=== PATIENT | male | born 1940 | race Hispanic/Latino ===

== ENCOUNTER 2016-05-13 13:10 | Inpatient (IN) | payer MEDICARE ==
[2016-05-13] MEDS ORDERED: Sodium Chloride 0.9% 1,000 ML IV STA ×3 (13:41→18:22)
[2016-05-13] MEDS ORDERED: Iohexol 240 (50 ml) PO ONE (13:41)
[2016-05-13 13:59] LABS: BASO # 0.2 K/uL (0.0-0.2); BASO % 0.8 % (0.0-2.0); LYMPH # 0.4 K/uL (1.0-4.3); LYMPH % 1.4 % (20.0-40.0); MEAN CELL VOLUME 73.5 fl (80.0-94.0); MEAN CORPUSCULAR HEMOGLOBIN 21.7 pg (27.0-31.0); MEAN CORPUSCULAR HGB CONC 29.6 g/dL (33.0-37.0); MEAN PLATELET VOLUME 7.7 fl (7.2-11.7); MONO # 1.8 K/uL (0.0-0.8); MONO % 6.5 % (0.0-10.0); NEUT # 25.5 K/uL (1.8-7.0); NEUT % 91.3 % (50.0-75.0); PLATELET COUNT 512 K/uL (130-400); RED CELL DISTRIBUTION WIDTH 18.1 % (11.5-14.5); WHITE BLOOD COUNT 27.9 K/uL (4.8-10.8)
[2016-05-13 14:05] LABS: ALB/GLOB RATIO 1.2 (1.0-2.1); BILIRUBIN,TOTAL 1.2 mg/dl (0.2-1.3); CALCIUM 10.8 mg/dL (8.4-10.2); POTASSIUM 3.5 MMOL/L (3.6-5.0); TOTAL PROTEIN 7.3 G/DL (6.3-8.2)
[2016-05-13 14:17] LABS: TROPONIN I 0.022 ng/mL (0.00-0.120)
--- NOTE | 2016-05-13 14:17 | ED PDOC ---
HPI: Abdomen Time Seen by Provider: 05/13/16 13:34 Chief Complaint (Nursing): GI Problem Chief Complaint (Provider): vomiting diarrhea abd pain History Per: Patient, Family History/Exam Limitations: no limitations Onset/Duration Of Symptoms: Hrs (~6) Current Symptoms Are (Timing): Still Present Severity: Moderate Location Of Pain/Discomfort: RUQ Quality Of Discomfort: Sharp Associated Symptoms: Nausea, Vomiting, Diarrhea, Loss Of Appetite Exacerbating Factors: None Alleviating Factors: None Last Bowel Movement: Today Additional Complaint(s): 75yo male presents w family c/o diarrhea which became profuse overnight, progressed to multiple episodes nonbloody vomiting, generalized weakness and lower abdominal pain. Denies fever. Family states they ate out yesterday afternoon, concerned for food born illness but nobody else with similar symptoms. Past Medical History Reviewed: Historical Data, Nursing Documentation, Vital Signs Vital Signs: Last Vital Signs Temp 97.5 F L 05/20/16 08:16 Pulse 101 H 05/20/16 08:39 Resp 18 05/20/16 08:16 BP 156/69 H 05/20/16 08:39 Pulse Ox 95 05/20/16 08:16 - Medical History PMH: Diverticulitis, HTN Other PMH: myasthesia gravis - Surgical History Surgical History: No Surg Hx (no abd surgeries) - Family History Family History: States: Unknown Family Hx - Living Arrangements Living Arrangements: With Family - Social History Current smoker - smoking cessation education provided: No - Home Medications Home Medications: Ambulatory Orders Medication Instructions Recorded Amlodipine/Valsartan/Hcthiazid 10 - 320 mg PO DAILY 05/13/16 [Lumov-Suisl-Ifyo 10-320-25 mg] Aspirin [Aspirin Chewable] 81 mg PO DAILY 05/13/16 Esomeprazole Sodium [Esomeprazole 40 mg PO DAILY 05/13/16 Sodium] Memantine HCl/Donepezil HCl 10 mg PO DAILY 05/13/16 [Namzaric 28 mg-10 mg Capsule] Metoprolol Succinate [Metoprolol 100 mg PO DAILY 05/13/16 Succinate] Prednisone [Prednisone] 10 mg PO DAILY 05/13/16 Pyridostigmine [Mestinon Tab] 60 mg PO QID 05/13/16 Rosuvastatin Calcium [Crestor] 5 mg PO DAILY 05/13/16 - Allergies Allergies/Adverse Reactions: Allergies Allergy/AdvReac Type Severity Reaction Status Date / Time No Known Allergies Allergy Verified 05/13/16 13:12 Review of Systems Constitutional: Positive for: Weakness, Malaise ENT: Negative for: Ear Pain, Nose Pain Cardiovascular: Positive for: Light Headedness. Negative for: Chest Pain, Palpitations Respiratory: Negative for: Cough, Shortness of Breath Gastrointestinal: Positive for: Nausea, Vomiting, Abdominal Pain, Diarrhea. Negative for: Constipation, Melena, Hematochezia Genitourinary Male: Negative for: Dysuria, Frequency Musculoskeletal: Negative for: Neck Pain Skin: Negative for: Rash, Lesions, Jaundice Neurological: Positive for: Dizziness. Negative for: Weakness, Numbness, Headache Psych: Negative for: Anxiety, Depression Physical Exam - Reviewed Nursing Documentation Reviewed: Yes Vital Signs Reviewed: Yes - Physical Exam Appears: Positive for: Non-toxic, Uncomfortable (+profuse nonbloody vomiting) Head Exam: Positive for: ATRAUMATIC, NORMAL INSPECTION, NORMOCEPHALIC Skin: Positive for: Normal Color, Warm, DRY Eye Exam: Positive for: EOMI, Normal appearance, PERRL ENT: Positive for: Normal ENT Inspection Neck: Positive for: Normal, Painless ROM Cardiovascular/Chest: Positive for: Regular Rate, Rhythm Respiratory: Positive for: CNT, Normal Breath Sounds Gastrointestinal/Abdominal: Positive for: Bowel Sounds, Soft, Tenderness (mild lower abd tenderness). Negative for: Guarding, Rebound Back: Positive for: Normal Inspection Extremity: Positive for: Normal ROM Neurologic/Psych: Positive for: Alert, Oriented. Negative for: Motor/Sensory Deficits - Laboratory Results Result Diagrams: 05/18/16 06:00 05/20/16 08:25 - ECG ECG: Positive for: Interpreted By Me ECG Rhythm: Positive for: Normal QRS Interpretation Of ECG: QTc 530 O2 Sat by Pulse Oximetry: 98 Pulse Ox Interpretation: Normal Medical Decision Making Medical Decision Making: Workup for acute abdominal process initiated. IVF bolus, antiemetic ordered with awareness of prolonged QTc. CT abd pelv ordered r/o diverticulitis vs gastroenteritis vs appendicitis vs obstruction vs other -------- labs reviewed reveal marked leukocytosis with evidence of chemical dehydration and hypokalemiua. Disposition - Clinical Impression Clinical Impression: Pancolitis, Dehydration - Patient ED Disposition Is Patient to be Admitted: Transfer of Care Counseled Patient/Family Regarding: Studies Performed - Disposition Disposition: Transfer of Care Disposition Time: 15:00 Condition: GUARDED Patient Signed Over To: Brianda Shea Handoff Comments: pending workup and dispo
[2016-05-13] MEDS ORDERED: Potassium CL 10mEq/100ml 100 ML IVPB ONE (14:19)
[2016-05-13] MEDS ORDERED: Potassium Chloride 10 mEq 100 ML IVPB ONE (14:49)
[2016-05-13] MEDS ORDERED: Atropine-Diphenoxylate 0.025-2.5 mg Tab PO STA (15:55)
--- NOTE | 2016-05-13 15:57 | ED PDOC ---
- Laboratory Results Result Diagrams: 05/13/16 13:45 05/13/16 13:45 - ECG O2 Sat by Pulse Oximetry: 98 (RA) Pulse Ox Interpretation: Normal - CT Scan/US CT A/P w/PO contrast only Other Rad Studies (CT/US): Read By Radiologist, Radiology Report Reviewed Other Rad Interpretation: see [facility] Medical Decision Making Medical Decision Makin:00 Patient endorsed over to me by Zurdo Chau III, DO, pending remainder of ED workup, reevaluation and final disposition. On my evaluation patient reports being less nauseous but is still having copious amounts of diarrhea. 16:41 CT A/P report reviewed: FINDINGS: LOWER THORAX: Unremarkable. LIVER: Unremarkable. No gross lesion or ductal dilatation. GALLBLADDER AND BILE DUCTS: Unremarkable. PANCREAS: Unremarkable. No gross lesion or ductal dilatation. SPLEEN: Unremarkable. ADRENALS: Unremarkable. No mass. KIDNEYS AND URETERS: Two right upper pole renal cysts, 1.8 cm each. Mid left renal cortical cyst, 2.5 cm. No calculus. No hydronephrosis. VASCULATURE: Unremarkable. No aortic aneurysm. BOWEL: There is distention of the entire colon with fluid. There is circumferential mural thickening of the ascending and descending colon with more substantial irregular mural thickening involving rectosigmoid colon. There is pericolonic inflammatory change noted about the ascending and descending colon as well as about the transverse colon, consistent with an infectious or inflammatory colitis . There are multiple dilated loops of small bowel. There is a long segment of small intestine in the left upper quadrant demonstrating circumferential mural thickening, consistent with nonspecific enteritis. There is a small hiatal hernia present. APPENDIX: Not identified. PERITONEUM: Unremarkable. No free fluid. No free air. LYMPH NODES: Unremarkable. No enlarged lymph nodes. BLADDER: Nondistended REPRODUCTIVE: Normal prostate BONES: No acute fracture. OTHER FINDINGS: None. IMPRESSION: Infectious versus inflammatory davies colitis. Irregular more extensive mural thickening involving the rectosigmoid colon, most likely infectious/ inflammatory and less likely neoplastic in origin. Nonspecific enteritis involving proximal small intestine. No evidence bowel obstruction. Additional minor findings as above. . 17:[address] Rodríguez, patient will be admitted as a full inpatient under his service to Telemetry for colitis, dehydration, and anticipated electrolyte abnormality with aggressive dehydration. Administration of Cipro and Flagyl IVPB have also been ordered. Plan has been discussed with both patient and family, who are also in agreement. Condition guarded. Scribe Attestation: Documented by Dana Alvarez, acting as a scribe for Brianda Shea MD. Provider Scribe Attestation: All medical record entries made by the Scribe were at my direction and personally dictated by me. I have reviewed the chart and agree that the record accurately reflects my personal performance of the history, physical exam, medical decision making, and the department course for this patient. I have also personally directed, reviewed, and agree with the discharge instructions and disposition. Disposition Discussed With : Miguel Rodríguez Doctor Will See Patient In The: Hospital Counseled Patient/Family Regarding: Studies Performed, Diagnosis - Clinical Impression Clinical Impression: Pancolitis, Dehydration - POA Present On Arrival: None - Disposition Disposition: Admitted as In-Patient Disposition Time: 17:00 Condition: GUARDED
--- NOTE | 2016-05-13 16:43 | CT ---
PROCEDURE: CT Abdomen and Pelvis without intravenous contrast HISTORY: diarrhea abd pain COMPARISON: None. TECHNIQUE: Without contrast.. Contrast Dose: 0 Radiation dose: Total exam DLP = 867.18 mGy-cm. This CT exam was performed using one or more of the following dose reduction techniques: Automated exposure control, adjustment of the mA and/or kV according to patient size, and/or use of iterative reconstruction technique. FINDINGS: LOWER THORAX: Unremarkable. LIVER: Unremarkable. No gross lesion or ductal dilatation. GALLBLADDER AND BILE DUCTS: Unremarkable. PANCREAS: Unremarkable. No gross lesion or ductal dilatation. SPLEEN: Unremarkable. ADRENALS: Unremarkable. No mass. KIDNEYS AND URETERS: Two right upper pole renal cysts, 1.8 cm each. Mid left renal cortical cyst, 2.5 cm. No calculus. No hydronephrosis. VASCULATURE: Unremarkable. No aortic aneurysm. BOWEL: There is distention of the entire colon with fluid. There is circumferential mural thickening of the ascending and descending colon with more substantial irregular mural thickening involving rectosigmoid colon. There is pericolonic inflammatory change noted about the ascending and descending colon as well as about the transverse colon, consistent with an infectious or inflammatory colitis . There are multiple dilated loops of small bowel. There is a long segment of small intestine in the left upper quadrant demonstrating circumferential mural thickening, consistent with nonspecific enteritis. There is a small hiatal hernia present. APPENDIX: Not identified. PERITONEUM: Unremarkable. No free fluid. No free air. LYMPH NODES: Unremarkable. No enlarged lymph nodes. BLADDER: Nondistended REPRODUCTIVE: Normal prostate BONES: No acute fracture. OTHER FINDINGS: None. IMPRESSION: Infectious versus inflammatory davies colitis. Irregular more extensive mural thickening involving the rectosigmoid colon, most likely infectious/inflammatory and less likely neoplastic in origin. Nonspecific enteritis involving proximal small intestine. No evidence bowel obstruction. Additional minor findings as above. .
[2016-05-13] MEDS ORDERED: Ciprofloxacin 400mg/200ml D5W 200 ML IV STA (16:52)
[2016-05-13] MEDS ORDERED: metroNIDAZOLE 500mg/100ml NS 100 ML IV STA (16:52)
[2016-05-13] MEDS ORDERED: Ciprofloxacin 400mg/200ml D5W 200 ML IVPB ONE (17:02)
[2016-05-13 17:56] LABS: NEUTROPHIL 85 % (42-75); TOTAL CELLS COUNTED 100
[2016-05-13] MEDS ORDERED: metroNIDAZOLE 500mg/100ml NS 100 ML IVPB ONE (18:19)
[2016-05-14] MEDS: Dextrose 5%/Lactated Ringer's 1,000 ML IV SCH ×4 (02:05→17:50)
[2016-05-14 07:47] LABS: BILIRUBIN,TOTAL 1.1 mg/dl (0.2-1.3); CALCIUM 9.2 mg/dL (8.4-10.2); POTASSIUM 5.4 MMOL/L (3.6-5.0); TOTAL PROTEIN 5.2 G/DL (6.3-8.2)
--- NOTE | 2016-05-14 09:04 | CARD ---
APPROVED REPORT EKG Measurement Heart [id number] <Conclusion> Normal sinus rhythm Prolonged QT Abnormal ECG
[2016-05-14 13:29] LABS: HEMATOCRIT 30.1 % (35.0-51.0); MEAN CELL VOLUME 73.5 fl (80.0-94.0); MEAN CORPUSCULAR HEMOGLOBIN 22.1 pg (27.0-31.0); RED CELL DISTRIBUTION WIDTH 17.8 % (11.5-14.5)
--- NOTE | 2016-05-14 13:31 | CP.PCM.CON ---
History of Present Illness - History of Present Illness History of Present Illness: 75 yo male with no IBD history admitted with abdominal pain and diarrhea. Patient is confused and not a good historian. Review of Systems - Review of Systems Systems not reviewed;Unavailable: Altered Mental Status Past Patient History - Past Medical History & Family History Past Medical History?: Yes - Past Social History Smoking Status: Smoker Currrent Status Unknown - CARDIAC Hx Cardiac Disorders: Yes Hx Hypercholesterolemia: Yes Hx Hypertension: Yes - PULMONARY Hx Respiratory Disorders: No - NEUROLOGICAL Hx Neurological Disorder: No - HEENT Hx HEENT Problems: Yes Other/Comment: uses eye glasses - RENAL Hx Chronic Kidney Disease: No - ENDOCRINE/METABOLIC Other/Comment: Hx Myasthenia Gravis - HEMATOLOGICAL/ONCOLOGICAL Hx Blood Disorders: No - INTEGUMENTARY Hx Dermatological Problems: No - MUSCULOSKELETAL/RHEUMATOLOGICAL Hx Musculoskeletal Disorders: No Hx Falls: No - GASTROINTESTINAL Hx Gastrointestinal Disorders: Yes Hx Diverticulitis: Yes - GENITOURINARY/GYNECOLOGICAL Hx Genitourinary Disorders: No - PSYCHIATRIC Hx Psychophysiologic Disorder: No Hx Substance Use: No - ANESTHESIA Hx Anesthesia: No Meds Allergies/Adverse Reactions: Allergies Allergy/AdvReac Type Severity Reaction Status Date / Time No Known Allergies Allergy Verified 05/13/16 13:12 - Medications Medications: Current Medications Dextrose/Lactated Ringer's (Dextrose 5%/Lactated Ringer's) 1,000 mls @ 150 mls/ hr IV .Q6H40M [facility] Last Admin: 05/14/16 09:17 Dose: 150 mls/hr Pantoprazole Sodium (Protonix Inj) 40 mg IVP DAILY [facility] Last Admin: 05/14/16 09:16 Dose: 40 mg Physical Exam - Head Exam Head Exam: ATRAUMATIC - Eye Exam Eye Exam: Normal appearance - ENT Exam ENT Exam: Mucous Membranes Moist - Neck Exam Neck exam: Positive for: Normal Inspection - Respiratory Exam Respiratory Exam: Clear to Auscultation Bilateral - Cardiovascular Exam Cardiovascular Exam: REGULAR RHYTHM - GI/Abdominal Exam GI & Abdominal Exam: Distended, Normal Bowel Sounds, Tenderness Additional comments: moderate generalized tenderness Results - Vital Signs Recent Vital Signs: Last Vital Signs Temp 97.5 F L 05/14/16 12:11 Pulse 82 05/14/16 12:11 Resp 18 05/14/16 12:11 BP 131/68 05/14/16 12:11 Pulse Ox 95 05/14/16 12:11 - Labs Result Diagrams: 05/13/16 13:45 05/14/16 06:50 Labs: Laboratory Results - last 24 hr 05/13/16 05/14/16 19:55 06:50 Sodium 137 Potassium 5.4 H Chloride 105 Carbon Dioxide 18 L Anion Gap 19 BUN 46 H Creatinine 3.3 H Est GFR ( Amer) 22 Est GFR (Non-Af Amer) 18 Random Glucose 106 Calcium 9.2 Total Bilirubin 1.1 AST 74 H D ALT 37 Alkaline Phosphatase 57 Total Protein 5.2 L Albumin 2.6 L D Globulin 2.5 Albumin/Globulin Ratio 1.0 C. difficile Ag & Toxin Negative Assessment & Plan (1) Pancolitis Assessment and Plan: Likely infectious enterocolitis. Patient discussed with Dr. Rodríguez. Uzma Pryor/ Ranjan. May give questran daily for diarrhea. Renal consultation and IV fluids. Status: Acute
--- NOTE | 2016-05-14 14:34 | CP.PCM.CON ---
History of Present Illness - History of Present Illness History of Present Illness: 75yo male presents w family c/o diarrhea which became profuse overnight, progressed to multiple episodes nonbloody vomiting, generalized weakness and lower abdominal pain. denies Hematemasis or Hematochezia Denies fever. Family states they ate out yesterday afternoon, concerned for food borne illness but nobody else with similar symptoms. Denies ingestion of seafood No antibiotic usage No recent visits to hospital no travel hx no ill contacts no prodrome Only risk for c diff is PPI usage - Medical History PMH: Diverticulitis, HTN Other PMH: myasthesia gravis Review of Systems - Constitutional Constitutional: As Per HPI, Anorexia, Chills, Malaise. absent: Fever, Weight Loss - EENT Eyes: absent: As Per HPI, Blind Spots, Blurred Vision, Change in Vision, Decreased Night Vision, Diplopia, Discharge, Dry Eye, Exophthalmos, Floaters, Irritation, Itchy Eyes, Loss of Peripheral Vision, Pain, Photophobia, Requires Corrective Lenses, Sees Flashes, Spots in Vision, Tunnel Vision, Other Visual Disturbances, Loss of Vision, Other Ears: absent: As Per HPI, Decreased Hearing, Ear Discharge, Ear Pain, Tinnitus, Abnormal Hearing, Disequilibrium, Dizziness, Other Nose/Mouth/Throat: absent: As Per HPI, Epistaxis, Nasal Congestion, Nasal Discharge, Nasal Obstruction, Nasal Trauma, Nose Pain, Post Nasal Drip, Sinus Pain, Sinus Pressure, Bleeding Gums, Change in Voice, Dental Pain, Dry Mouth, Dysphagia, Halitosis, Hoarsness, Lip Swelling, Mouth Lesions, Mouth Pain, Odynophagia, Sore Throat, Throat Swelling, Tongue Swelling, Facial Pain, Neck Pain, Neck Mass, Other - Cardiovascular Cardiovascular: absent: As Per HPI, Acrocyanosis, Chest Pain, Chest Pain at Rest , Chest Pain with Activity, Claudication, Diaphoresis, Dyspnea, Dyspnea on Exertion, Edema, Irregular Heart Rhythm, Pain Radiating to Arm/Neck/Jaw, Leg Edema, Leg Ulcers, Lightheadedness, Orthopnea, Palpitations, Paroxysmal Nocturnal Dyspnea, Pedal Edema, Radiating Pain, Rapid Heart Rate, Slow Heart Rate, Syncope, Other - Respiratory Respiratory: absent: As Per HPI, Cough, Dyspnea, Hemoptysis, Dyspnea on Exertion , Wheezing, Snoring, Stridor, Pain on Inspiration, Chest Congestion, Excessive Mucous Production, Change in Mucous Color, Pain with Coughing, Other - Gastrointestinal Gastrointestinal: As Per HPI, Abdominal Pain, Cramping, Diarrhea, Loose Stools, Vomiting. absent: Hematemesis, Odynophagia, Temesmus - Genitourinary Genitourinary: absent: As Per HPI, Change in Urinary Stream, Difficulty Urinating, Dysuria, Flank Pain, Hematuria, Pyuria, Nocturia, Urinary Incontinence, Urinary Frequency, Urinary Hesitance, Urinary Urgency, Voiding Freq/Small Amts, Freq UTI, Hx Renal/Bladder Calculi, Hx /Renal Surgery, Bladder Distension, Other - Musculoskeletal Musculoskeletal: absent: As Per HPI, Abnormal Gait, Arthralgias, Atrophy, Back Pain, Deformity, Joint Swelling, Limited Range of Motion, Loss of Height, Muscle Cramps, Muscle Weakness, Myalgias, Neck Pain, Numbness, Radiating Pain into Limb, Stiffness, Tingling, Other - Integumentary Integumentary: absent: As Per HPI, Acne, Alopecia, Bleeding Lesions, Change in Hair, Change in Nails, Change in Pigmentation, Changing Lesions, Dry Skin, Erythema, Furuncle, Hirsutism, Lesions, New Lesions, Non-Healing Lesions, Photosensitivity, Pruritus, Rash, Skin Pain, Skin Ulcer, Sores, Striae, Swelling , Unusual Bruising, Wounds, Jaundice, Other - Neurological Neurological: As Per HPI - Psychiatric Psychiatric: absent: As Per HPI, Abnormal Sleep Pattern, Anhedonia, Anxiety, Auditory Hallucinations, Behavioral Changes, Change in Appetite, Change in Libido, Confusion, Depression, Difficulty Concentrating, Hallucinations, Homicidal Ideation, Hopelessness, Irritability, Memory Loss, Mood Swings, Panic Attacks, Paranoia, Suicidal Ideation, Visual Hallucinations, Tactile Hallucinations, Other - Endocrine Endocrine: absent: As Per HPI, Change in Body Appearance, Change in Libido, Cold Intolorance, Deepening of Voice, Excessive Sweating, Fatigue, Flushing, Heat Intolorance, Increase in Ring/Shoe/Hat Size, Palpitations, Polydipsia, Polyphagia, Polyuria, Other - Hematologic/Lymphatic Hematologic: absent: As Per HPI, Easy Bleeding, Easy Bruising, Lymphadenopathy, Other Past Patient History - Past Medical History & Family History Past Medical History?: Yes - Past Social History Smoking Status: Smoker Currrent Status Unknown - CARDIAC Hx Cardiac Disorders: Yes Hx Hypercholesterolemia: Yes Hx Hypertension: Yes - PULMONARY Hx Respiratory Disorders: No - NEUROLOGICAL Hx Neurological Disorder: No - HEENT Hx HEENT Problems: Yes Other/Comment: uses eye glasses - RENAL Hx Chronic Kidney Disease: No - ENDOCRINE/METABOLIC Other/Comment: Hx Myasthenia Gravis - HEMATOLOGICAL/ONCOLOGICAL Hx Blood Disorders: No - INTEGUMENTARY Hx Dermatological Problems: No - MUSCULOSKELETAL/RHEUMATOLOGICAL Hx Musculoskeletal Disorders: No Hx Falls: No - GASTROINTESTINAL Hx Gastrointestinal Disorders: Yes Hx Diverticulitis: Yes - GENITOURINARY/GYNECOLOGICAL Hx Genitourinary Disorders: No - PSYCHIATRIC Hx Psychophysiologic Disorder: No Hx Substance Use: No - ANESTHESIA Hx Anesthesia: No Meds Allergies/Adverse Reactions: Allergies Allergy/AdvReac Type Severity Reaction Status Date / Time No Known Allergies Allergy Verified 05/13/16 13:12 - Medications Medications: Current Medications Dextrose/Lactated Ringer's (Dextrose 5%/Lactated Ringer's) 1,000 mls @ 150 mls/ hr IV .Q6H40M [facility] Last Admin: 05/14/16 09:17 Dose: 150 mls/hr Pantoprazole Sodium (Protonix Inj) 40 mg IVP DAILY [facility] Last Admin: 05/14/16 09:16 Dose: 40 mg Physical Exam - Constitutional Appears: Non-toxic, Chronically Ill - Head Exam Head Exam: ATRAUMATIC, NORMAL INSPECTION, NORMOCEPHALIC - Eye Exam Eye Exam: PERRL. absent: Scleral icterus - ENT Exam ENT Exam: Mucous Membranes Dry, Normal External Ear Exam, Normal Oropharynx - Neck Exam Neck exam: Negative for: Lymphadenopathy, Thyromegaly - Respiratory Exam Respiratory Exam: Decreased Breath Sounds, Clear to Auscultation Bilateral - Cardiovascular Exam Cardiovascular Exam: REGULAR RHYTHM, +S1, +S2 - GI/Abdominal Exam GI & Abdominal Exam: Diminished Bowel Sounds, Distended, Firm, Soft. absent: Guarding, Hernia, Organomegaly, Pulsatile Mass, Rebound, Rigid, Tenderness - Rectal Exam Rectal Exam: Deferred - Exam Exam: NORMAL INSPECTION - Extremities Exam Extremities exam: Positive for: pedal pulses present. Negative for: calf tenderness, pedal edema, tenderness - Back Exam Back exam: absent: CVA tenderness (L), CVA tenderness (R), paraspinal tenderness - Neurological Exam Neurological exam: Alert, CN II-XII Intact, Oriented x3, Reflexes Normal - Psychiatric Exam Psychiatric exam: Depressed - Skin Skin Exam: Dry, Intact Results - Vital Signs Recent Vital Signs: Last Vital Signs Temp 97.5 F L 05/14/16 12:11 Pulse 82 05/14/16 12:11 Resp 18 05/14/16 12:11 BP 131/68 05/14/16 12:11 Pulse Ox 95 05/14/16 12:11 - Labs Result Diagrams: 05/14/16 06:50 05/14/16 06:50 Labs: Laboratory Results - last 24 hr 05/13/16 05/14/16 19:55 06:50 WBC 14.0 H RBC 4.09 L Hgb 9.0 L Hct 30.1 L MCV 73.5 L MCH 22.1 L MCHC 30.0 L RDW 17.8 H Plt Count 373 D Sodium 137 Potassium 5.4 H Chloride 105 Carbon Dioxide 18 L Anion Gap 19 BUN 46 H Creatinine 3.3 H Est GFR ( Amer) 22 Est GFR (Non-Af Amer) 18 Random Glucose 106 Calcium 9.2 Total Bilirubin 1.1 AST 74 H D ALT 37 Alkaline Phosphatase 57 Total Protein 5.2 L Albumin 2.6 L D Globulin 2.5 Albumin/Globulin Ratio 1.0 C. difficile Ag & Toxin Negative Assessment & Plan (1) Dehydration Status: Acute (2) Pancolitis Status: Acute (3) Renal insufficiency Status: Acute (4) Hypovolemia dehydration Status: Acute - Assessment and Plan (Free Text) Assessment: will screen for norovirus, entameba, listeria, salmonella cont iv antibiotics
[2016-05-14] MEDS: metroNIDAZOLE 500mg/100ml NS 100 ML IVPB SCH (16:54)
[2016-05-14] MEDS ORDERED: Sodium Chloride 0.9% 500 ML IV ONE ×2 (20:22→22:10)
--- NOTE | 2016-05-14 20:23 | US ---
EXAM: US Bladder Limited CLINICAL HISTORY: 75 years old, male; Signs and symptoms; Bladder; Urine retention TECHNIQUE: Real-time ultrasound of the bladder limited with image documentation. EXAM DATE/TIME: 05/14/2016 5:17 PM COMPARISON: There are no prior studies for comparison. FINDINGS: Multiple transverse and coronal images of the lower pelvis were obtained. The urinary bladder could not be identified. There are multiple bowel loops in the pelvis. There is no free fluid IMPRESSION: Empty bladder
[2016-05-14 20:41] LABS: BILIRUBIN,TOTAL 1.2 mg/dl (0.2-1.3); CALCIUM 8.9 mg/dL (8.4-10.2); PHOSPHOROUS 5.6 mg/dl (2.5-4.5); TOTAL PROTEIN 5.2 G/DL (6.3-8.2)
[2016-05-14 20:46] LABS: POTASSIUM 6.2 MMOL/L (3.6-5.0)
[2016-05-14] MEDS ORDERED: Sod Polystyrene Sulf 15 gm/60 ml Oral Susp PO ONE (22:07)
[2016-05-14] MEDS ORDERED: Dextrose 50% SYRINGE Inj (50 ml) IVP ONE (22:16)
[2016-05-14] MEDS ORDERED: Insulin Regular 100 units/ml SC ONE (22:21)
--- NOTE | 2016-05-14 22:26 | CP.PCM.HP ---
History of Present Illness - History of Present Illness History of Present Illness: This is a 75 y/o male admitted for severe dehydration yesterday through the ER. He apparently started having profused vomiting and diarrhea since the night prior to evaluation at the ER. At the ER, he was noted to be so severely dehydrated clinically and was started on aggressive hydration. He was also started on Iv Cipro and Flagyl. CT scan of the abdomen showed pancolitis. and WBC was more than 27.9 K. family informed that they went out to dinner after which he started with the symptoms., None of the other members of the family had the same symptoms. Hehas a hx of HTN, anemia and gastritis and BPH. Initial labs showed a BUN of 28 and Cr 1.7 to BUN 46 and creatinine 3.3. patient continued to have watery diarrhea in the last 24 hours. Present on Admission - Present on Admission Any Indicators Present on Admission: No History of DVT/PE: No History of Uncontrolled Diabetes: No Urinary Catheter: No Decubitus Ulcer Present: No Review of Systems - Gastrointestinal Gastrointestinal: Dyspepsia Past Patient History - Past Medical History & Family History Past Medical History?: Yes - Past Social History Smoking Status: Smoker Currrent Status Unknown - CARDIAC Hx Cardiac Disorders: Yes Hx Hypercholesterolemia: Yes Hx Hypertension: Yes - PULMONARY Hx Respiratory Disorders: No - NEUROLOGICAL Hx Neurological Disorder: No - HEENT Hx HEENT Problems: Yes Other/Comment: uses eye glasses - RENAL Hx Chronic Kidney Disease: No - ENDOCRINE/METABOLIC Other/Comment: Hx Myasthenia Gravis - HEMATOLOGICAL/ONCOLOGICAL Hx Blood Disorders: No - INTEGUMENTARY Hx Dermatological Problems: No - MUSCULOSKELETAL/RHEUMATOLOGICAL Hx Musculoskeletal Disorders: No Hx Falls: No - GASTROINTESTINAL Hx Gastrointestinal Disorders: Yes Hx Diverticulitis: Yes - GENITOURINARY/GYNECOLOGICAL Hx Genitourinary Disorders: No - PSYCHIATRIC Hx Psychophysiologic Disorder: No Hx Substance Use: No - ANESTHESIA Hx Anesthesia: No Meds Allergies/Adverse Reactions: Allergies Allergy/AdvReac Type Severity Reaction Status Date / Time No Known Allergies Allergy Verified 05/13/16 13:12 Physical Exam - Constitutional Appears: Confused - Neck Exam Neck exam: Positive for: Normal Inspection - Respiratory Exam Respiratory Exam: NORMAL BREATHING PATTERN - GI/Abdominal Exam GI & Abdominal Exam: Hyperactive Bowel Sounds, Tenderness - Skin Skin Exam: Dry Results - Vital Signs Recent Vital Signs: Last Vital Signs Temp 98.3 F 05/14/16 15:47 Pulse 99 H 05/14/16 15:47 Resp 18 05/14/16 15:47 BP 116/65 05/14/16 15:47 Pulse Ox 98 05/14/16 15:47 - Labs Result Diagrams: 05/14/16 06:50 05/14/16 20:20 Labs: Laboratory Results - last 24 hr 05/13/16 05/14/16 05/14/16 19:55 06:50 20:20 WBC 14.0 H RBC 4.09 L Hgb 9.0 L Hct 30.1 L MCV 73.5 L MCH 22.1 L MCHC 30.0 L RDW 17.8 H Plt Count 373 D Sodium 137 138 Potassium 5.4 H 6.2 H* Chloride 105 104 Carbon Dioxide 18 L 19 L Anion Gap 19 21 H BUN 46 H 55 H Creatinine 3.3 H 4.2 H Est GFR ( Amer) 22 17 Est GFR (Non-Af Amer) 18 14 Random Glucose 106 93 Calcium 9.2 8.9 Phosphorus 5.6 H Total Bilirubin 1.1 1.2 AST 74 H D 85 H ALT 37 39 Alkaline Phosphatase 57 65 Total Creatine Kinase 804 H Total Protein 5.2 L 5.2 L Albumin 2.6 L D 2.6 L Globulin 2.5 2.6 Albumin/Globulin Ratio 1.0 1.0 C. difficile Ag & Toxin Negative Assessment & Plan (1) Hypovolemia dehydration Status: Acute (2) Pancolitis Status: Acute (3) Acute renal failure Status: Acute (4) Gastroenteritis and colitis, viral Status: Acute (5) Toxic colitis Status: Acute (6) Toxic dilatation of colon Status: Acute - Assessment and Plan (Free Text) Plan: aggressive hydration Iv antibiotics ID consult GI eval and renal consult close follow up of lytes renal function and cbc.
[2016-05-14] MEDS ORDERED: Calcium Gluconate 4.65 mEq/10 ml Inj IVP ONE (22:49)
[2016-05-14] MEDS ORDERED: Sodium Bicarbonate 7.5% (0.9 MEQ/ML) 50ML INJ IV ONE (23:03)
--- NOTE | 2016-05-15 00:07 | CP.PCM.CON ---
History of Present Illness - History of Present Illness History of Present Illness: Attending: Miguel Keller MD Gastroenteriology: Dr Das Nephrology: Dr Allison Infectious Disease: Dr Rodney Reason for Consult: critical Care management Chief Complaint: Abdominal Pain/Diarrhea/vomiting HPI: The hx is obtained from the Patient and review of the medical chart. He is a 75 years old male with hx of Anemia, Gastritis, diverticulitis and Myasthenia Gravis, came with Diarrhea, vomiting and periumbilical abdominal pain, admitted on 05/13/16 with dx of Pancolitis and dehydration. Aviles catheter was inserted, IV fluids and empirical Antibiotics started. Bladder found empty on Ultrasound with worsening Azotemia and Hyperkalemia. PMH: Diverticulitis; HTN; Anemia; BPH; Gastritis; Myasthenia Gravis PSH: No Surgical History SH: No Smoking of cigarettes; No illegal drug use; No Alcohol; live with family FH: No Kown family history Allergies: NKDA Review of Systems - Constitutional Constitutional: Fatigue, Malaise, Weakness - EENT Eyes: Requires Corrective Lenses. absent: Blurred Vision, Diplopia, Photophobia , Sees Flashes Ears: absent: Decreased Hearing, Ear Discharge, Ear Pain, Tinnitus Nose/Mouth/Throat: absent: Epistaxis, Nasal Congestion, Nasal Discharge, Sinus Pain, Sinus Pressure, Sore Throat - Cardiovascular Cardiovascular: Dyspnea, Orthopnea. absent: Chest Pain, Edema - Respiratory Respiratory: Dyspnea. absent: Cough, Wheezing, Stridor - Gastrointestinal Gastrointestinal: Abdominal Pain, Diarrhea, Nausea, Vomiting - Genitourinary Additional comments: Aviles catheter in place, anuria. - Musculoskeletal Musculoskeletal: absent: Back Pain, Myalgias, Numbness, Stiffness - Integumentary Integumentary: absent: Pruritus, Rash, Skin Ulcer, Sores, Striae, Swelling - Neurological Neurological: Weakness. absent: Confusion, Focal Weakness, Paresthesias, Vertigo - Psychiatric Psychiatric: absent: Anxiety, Confusion, Depression, Memory Loss, Panic Attacks - Endocrine Endocrine: absent: Palpitations, Polydipsia, Polyphagia, Polyuria - Hematologic/Lymphatic Hematologic: absent: Easy Bleeding, Easy Bruising Past Patient History - Past Medical History & Family History Past Medical History?: Yes - Past Social History Smoking Status: Never Smoked Chewing Tobacco Use: No Cigar Use: No Alcohol: None Drugs: Denies Home Situation {Lives}: With Family - CARDIAC Hx Cardiac Disorders: Yes Hx Hypercholesterolemia: Yes Hx Hypertension: Yes - PULMONARY Hx Respiratory Disorders: No - NEUROLOGICAL Hx Neurological Disorder: No - HEENT Hx HEENT Problems: Yes Other/Comment: uses eye glasses - RENAL Hx Chronic Kidney Disease: No - ENDOCRINE/METABOLIC Hx Endocrine Disorders: Yes Other/Comment: Hx Myasthenia Gravis - HEMATOLOGICAL/ONCOLOGICAL Hx Blood Disorders: No - INTEGUMENTARY Hx Dermatological Problems: No - MUSCULOSKELETAL/RHEUMATOLOGICAL Hx Musculoskeletal Disorders: No Hx Falls: No - GASTROINTESTINAL Hx Gastrointestinal Disorders: Yes Hx Diverticulitis: Yes Hx Gastritis: Yes - GENITOURINARY/GYNECOLOGICAL Hx Genitourinary Disorders: No - PSYCHIATRIC Hx Psychophysiologic Disorder: No Hx Substance Use: No - SURGICAL HISTORY Hx Surgeries: No - ANESTHESIA Hx Anesthesia: No Meds Allergies/Adverse Reactions: Allergies Allergy/AdvReac Type Severity Reaction Status Date / Time No Known Allergies Allergy Verified 05/13/16 13:12 - Medications Medications: Current Medications Cholestyramine Resin (Questran) 4 gm PO DAILY [facility] Metronidazole (Flagyl 500mg/100ml Ns) 100 mls @ 100 mls/hr IVPB Q8 [facility] Last Admin: 05/14/16 16:54 Dose: 100 mls/hr Sodium Bicarbonate 150 meq/ (Dextrose) 1,150 mls @ 80 mls/hr IV .[id number] [facility] Pantoprazole Sodium (Protonix Inj) 40 mg IVP DAILY [facility] Last Admin: 05/14/16 09:16 Dose: 40 mg Pneumococcal Polyvalent Vaccine (Pneumovax 23 Vaccine) 0.5 ml IM .ONCE ONE Stop: 05/16/16 21:01 Physical Exam - Constitutional Appears: No Acute Distress - Head Exam Head Exam: ATRAUMATIC, NORMAL INSPECTION, NORMOCEPHALIC - Eye Exam Eye Exam: EOMI, Normal appearance Pupil Exam: NORMAL ACCOMODATION, PERRL - ENT Exam ENT Exam: Normal Exam, Normal External Ear Exam, Normal Oropharynx - Neck Exam Neck exam: Positive for: Full Rom, Normal Inspection. Negative for: Lymphadenopathy, Tenderness - Respiratory Exam Respiratory Exam: Clear to Auscultation Bilateral. absent: Rales, Rhonchi, Wheezes - Cardiovascular Exam Cardiovascular Exam: REGULAR RHYTHM, RRR, +S1, +S2. absent: Gallop, JVD - GI/Abdominal Exam Additional comments: obese, +ve bowel sounds. Soft, tender at the janine umbilical region, no guarding nor rebound tenderness. - Rectal Exam Rectal Exam: Deferred - Extremities Exam Extremities exam: Positive for: full ROM, normal inspection. Negative for: joint swelling, tenderness - Back Exam Back exam: NORMAL INSPECTION. absent: CVA tenderness (L), CVA tenderness (R) - Neurological Exam Neurological exam: Alert, CN II-XII Intact, Oriented x3, Reflexes Normal - Psychiatric Exam Psychiatric exam: Flat Affect - Skin Skin Exam: Dry, Intact, Normal Color, Warm Results - Vital Signs Recent Vital Signs: Last Vital Signs Temp 98.3 F 05/14/16 15:47 Pulse 99 H 05/14/16 15:47 Resp 18 05/14/16 15:47 BP 116/65 05/14/16 15:47 Pulse Ox 98 05/14/16 15:47 - Labs Result Diagrams: 05/14/16 06:50 05/14/16 20:20 Labs: Laboratory Results - last 24 hr 05/13/16 05/14/16 05/14/16 19:55 06:50 20:20 WBC 14.0 H RBC 4.09 L Hgb 9.0 L Hct 30.1 L MCV 73.5 L MCH 22.1 L MCHC 30.0 L RDW 17.8 H Plt Count 373 D Sodium 137 138 Potassium 5.4 H 6.2 H* Chloride 105 104 Carbon Dioxide 18 L 19 L Anion Gap 19 21 H BUN 46 H 55 H Creatinine 3.3 H 4.2 H Est GFR ( Amer) 22 17 Est GFR (Non-Af Amer) 18 14 Random Glucose 106 93 Calcium 9.2 8.9 Phosphorus 5.6 H Total Bilirubin 1.1 1.2 AST 74 H D 85 H ALT 37 39 Alkaline Phosphatase 57 65 Total Creatine Kinase 804 H Total Protein 5.2 L 5.2 L Albumin 2.6 L D 2.6 L Globulin 2.5 2.6 Albumin/Globulin Ratio 1.0 1.0 C. difficile Ag & Toxin Negative - Imaging and Cardiology Bladder US Status: Report reviewed by me Additional comment: Empty bladdder CT scan - abdomen Status: Report reviewed by me Additional comment: CT A/P report reviewed: FINDINGS: LOWER THORAX: Unremarkable. LIVER: Unremarkable. No gross lesion or ductal dilatation. GALLBLADDER AND BILE DUCTS: Unremarkable. PANCREAS: Unremarkable. No gross lesion or ductal dilatation. SPLEEN: Unremarkable. ADRENALS: Unremarkable. No mass. KIDNEYS AND URETERS: Two right upper pole renal cysts, 1.8 cm each. Mid left renal cortical cyst, 2.5 cm. No calculus. No hydronephrosis. VASCULATURE: Unremarkable. No aortic aneurysm. BOWEL: There is distention of the entire colon with fluid. There is circumferential mural thickening of the ascending and descending colon with more substantial irregular mural thickening involving rectosigmoid colon. There is pericolonic inflammatory change noted about the ascending and descending colon as well as about the transverse colon, consistent with an infectious or inflammatory colitis . There are multiple dilated loops of small bowel. There is a long segment of small intestine in the left upper quadrant demonstrating circumferential mural thickening, consistent with nonspecific enteritis. There is a small hiatal hernia present. APPENDIX: Not identified. PERITONEUM: Unremarkable. No free fluid. No free air. LYMPH NODES: Unremarkable. No enlarged lymph nodes. BLADDER: Nondistended REPRODUCTIVE: Normal prostate BONES: No acute fracture. OTHER FINDINGS: None. IMPRESSION: Infectious versus inflammatory davies colitis. Irregular more extensive mural thickening involving the rectosigmoid colon, most likely infectious/ inflammatory and less likely neoplastic in origin. Nonspecific enteritis involving proximal small intestine. No evidence bowel obstruction. Additional minor findings as above. . Chest x-ray Status: Image reviewed by me Additional comment: Right cardiophrenic angle infiltrate Assessment & Plan - Assessment and Plan (Free Text) Assessment: #. Pancolitis #. Dehydration #. Acute renal failure #. Hyperkalemia #. Anemia #. Leukocytosis #. hx of Myaesthenia Gravis Plan: 75 years old male with hx of Anemia, Gastritis, diverticulitis and Myasthenia Gravis, came with Diarrhea, vomiting and periumbilical abdominal pain, admitted on 05/13/16 with dx of Pancolitis and dehydration. Aviles catheter was inserted, IV fluids and empirical Antibiotics started. Bladder found empty on Ultrasound with worsening Azotemia and Hyperkalemia. #. Pancolitis - GI Dr Das on consult -ID Dr Rodney on consult - Stool -ve for C diff Toxins - Antibiotics Cipro/ Fagyl - Zofran - follow CBC/Lactic Acid #. Dehydration due to the Diarrhea andVomiting - IV fluids #. Acute renal failure Pre renal -Dr Allison neurology on consult - IV Fluids NS 1L bolus - IV sodium Bicarbonate Drip 80mls/hr for Metabolic acidosis - Follow renal labs #. Hyperkalemia - Neuro ordered Calcium Gluconate IV; Dextrose 50% 50mls and IV Insuli - follow Electrolytes #. Anemia with low MCV . Probably iron deficiency vs Thalassemia - Iron Panel - follow HB #. Leukocytosisas reaction from the Pancolitis - follow WBC #. Infiltrate at right cardio phrenic angle , most likely atelectasis - follow Serial CXR #. hx of Myaesthenia Gravis - Pyridostigmine as soon as Oral medications is restarted. #. DVT prophylaxis with SCD Code Status: Unknown Full - Date & Time Date: 05/15/16 Time: 00:07
[2016-05-15] MEDS: Sodium Bicarbonate 8.4% 150 MEQ in Dextrose 5% In Water 1,000 ML IV SCH ×2 (00:30→17:05)
[2016-05-15] MEDS ORDERED: Sodium Chloride 0.9% 1,000 ML IV SCH (01:30)
[2016-05-15] MEDS: metroNIDAZOLE 500mg/100ml NS 100 ML IVPB SCH ×3 (01:43→17:05)
[2016-05-15 01:50] LABS: CALCIUM 8.6 mg/dL (8.4-10.2)
[2016-05-15 01:54] LABS: POTASSIUM 5.7 MMOL/L (3.6-5.0)
[2016-05-15] MEDS ORDERED: Sod Polystyrene Sulf 15 gm/60 ml Oral Susp PO ONE (02:00)
[2016-05-15 02:32] LABS: ABG ALLEN TEST YES; ARTERIAL BLOOD GAS PH 7.44 (7.35-7.45); ARTERIAL BLOOD GAS PO2 62 mm/Hg (80-100)
[2016-05-15 02:34] LABS: ARTERIAL BLOOD GAS O2 CAPACITY 10.4 mL/dL (16-24)
[2016-05-15 02:35] LABS: CARBOXYHEMOGLOBIN 1.3 % (0.5-1.5); HHB 4.8 % (0.0-5.0); METHEMOGLOBIN 1.3 % (0.0-3.0)
[2016-05-15 02:37] LABS: ARTERIAL BLOOD HGB O2 SAT 92.7 % (95.0-98.0)
[2016-05-15] MEDS: Dextrose 5%/Lactated Ringer's 1,000 ML IV SCH (04:16)
[2016-05-15 05:16] LABS: CALCIUM 8.3 mg/dL (8.4-10.2); TOTAL PROTEIN 4.9 G/DL (6.3-8.2)
[2016-05-15 05:20] LABS: POTASSIUM 5.7 MMOL/L (3.6-5.0)
[2016-05-15 06:57] LABS: IRON 14 ug/dL (49-181)
[2016-05-15] MEDS: Cholestyramine 4 gm/Pkt UD PO SCH (09:20)
--- NOTE | 2016-05-15 09:51 | CP.CCUPN ---
<Chintan Hammond - Last Filed: 05/15/16 15:40> CCU Subjective - Physician Review Events Since Last Encounter (Free Text): 05/15/16 15:27 Pt. examined at bedside with daughter present in NAD. Pt. still complaining of watery non-bloody bowel movements. On ROS, pt. does reports feeling weak and having generalized abdominal pain which has improved since admission. Pt. denies any lightheadedness, syncope, palpitations, chest pain, shortness of breath, fever, chills, hemoptysis, flank pain, or limb pain. CCU Objective - Vital Signs / Intake & Output Vital Signs (Last 4 hours): Vital Signs Temp Pulse Resp BP Pulse Ox 05/15/16 09:00 108 H 16 96/63 L 98 05/15/16 08:00 97.4 F L 116 H 16 95/60 L 95 05/15/16 06:00 112 H 16 98/54 L 97 Intake and Output (Last 8hrs): Intake & Output 05/14/16 05/15/16 05/15/16 22:59 06:59 14:59 Intake Total 1480 500 Output Total 0 0 Balance 1480 500 Weight 189 lb Intake: IV 1380 400 Intake, Piggyback 100 100 Output: Urine 0 0 Urethral (Aviles) 0 0 - Physical Exam Head: Positive for: Atraumatic, Normocephalic Pupils: Positive for: PERRL Conjunctiva: Positive for: Normal. Negative for: Icteric Mouth: Positive for: Moist Mucous Membranes Neck: Positive for: Trachea Midline, Other (Supple) Respiratory/Chest: Positive for: Clear to Auscultation. Negative for: Accessory Muscle Use Cardiovascular: Positive for: Regular Rate and Rhythm, Normal S1, S2 Abdomen: Positive for: Tenderness (mild generalized tenderness appreciated), Distention (mild distension appreciated). Negative for: Peritoneal Signs, Rebound, Guarding Genitourinary Male: Positive for: Other (Aviles in place draining dark red urine ) Lower Extremity: Positive for: Normal Inspection, NORMAL PULSES Neurological: Positive for: CN II-XII Intact, Speech Normal Skin: Positive for: Warm, Dry Psychiatric: Positive for: Alert, Oriented x 3 - Medications Active Medications: Active Medications Generic Name Dose Route Start Last Admin Trade Name Freq PRN Reason Stop Dose Admin Cholestyramine Resin 4 gm 05/15/16 09:00 05/15/16 09:20 Questran PO Not Given DAILY YOBANI Metronidazole 100 mls @ 100 mls/hr 05/14/16 17:00 05/15/16 09:19 Flagyl 500mg/100ml Ns IVPB 100 mls/hr Q8 YOBANI Administration Sodium Bicarbonate 150 meq/ 1,150 mls @ 80 mls/hr 05/14/16 23:15 05/15/16 00:30 Dextrose IV 80 mls/hr .[id number] YOBANI Administration Pantoprazole Sodium 40 mg 05/14/16 09:00 05/15/16 09:19 Protonix Inj IVP 40 mg DAILY YOBANI Administration Pneumococcal Polyvalent Vaccine 0.5 ml 05/16/16 21:00 Pneumovax 23 Vaccine IM 05/16/16 21:01 .ONCE ONE - Patient Studies Lab Studies: Microbiology Studies 05/13/16 17:30 Blood Culture - Preliminary Blood NO GROWTH AFTER 24 HOURS 05/13/16 17:30 Blood Culture - Preliminary Blood NO GROWTH AFTER 24 HOURS 05/13/16 19:55 Ova and Parasite Concentrate Exam - Final Stool Lab Studies 05/15/16 05/15/16 05/15/16 Range/Units 07:49 06:47 04:20 WBC (4.8-10.8) K/uL RBC (4.40-5.90) Mil/uL Hgb (12.0-18.0) g/dL Hct (35.0-51.0) % MCV (80.0-94.0) fl MCH (27.0-31.0) pg MCHC (33.0-37.0) g/dL RDW (11.5-14.5) % Plt Count (130-400) K/uL Puncture Site pCO2 (35-45) mm/Hg pO2 (80-100) mm/Hg HCO3 (21-28) mmol/L ABG pH (7.35-7.45) ABG Total CO2 (22-28) mmol/L ABG O2 Saturation (95-98) % ABG Base Excess (-2.0-3.0) mmol/L ABG Hemoglobin (11.7-17.4) g/dL ABG Carboxyhemoglobin (0.5-1.5) % POC ABG HHb (Measured) (0.0-5.0) % ABG Methemoglobin (0.0-3.0) % ABG O2 Capacity (16-24) mL/dL Kishor Test A-a O2 Difference mm/Hg Hgb O2 Saturation (95.0-98.0) % FiO2 % Crit Value Called To Blood Gas Notified Time Sodium 140 (132-148) mmol/l Potassium 5.7 H (3.6-5.0) MMOL/L Chloride 108 H (98-107) mmol/L Carbon Dioxide 18 L (22-30) mmol/L Anion Gap 20 (10-20) BUN 65 H (9-20) mg/dl Creatinine 5.0 H 5.1 H (0.8-1.5) mg/dL Est GFR ( Amer) 14 13 Est GFR (Non-Af Amer) 11 11 POC Glucose (mg/dL) (65-110) mg/dL Random Glucose 90 (75-110) mg/dL Lactic Acid 2.1 (0.7-2.1) MMOL/L Calcium 8.3 L (8.4-10.2) mg/dL Phosphorus (2.5-4.5) mg/dl Iron 14 L (49-181) ug/dL TIBC 244 L (250-450) ug/dL % Saturation 6 L (20-55) % Total Bilirubin 1.0 (0.2-1.3) mg/dl AST 62 H D (17-59) U/L ALT 34 (21-72) U/L Alkaline Phosphatase 62 (38-126) U/L Total Creatine Kinase (55-170) U/L Total Protein 4.9 L (6.3-8.2) G/DL Albumin 2.4 L (3.5-5.0) g/dL Globulin 2.5 (2.2-3.9) gm/dL Albumin/Globulin Ratio 1.0 (1.0-2.1) C. difficile Ag & Toxin (NEGATIVE) 05/15/16 05/15/16 05/14/16 Range/Units 02:25 01:30 22:19 WBC (4.8-10.8) K/uL RBC (4.40-5.90) Mil/uL Hgb (12.0-18.0) g/dL Hct (35.0-51.0) % MCV (80.0-94.0) fl MCH (27.0-31.0) pg MCHC (33.0-37.0) g/dL RDW (11.5-14.5) % Plt Count (130-400) K/uL 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 pCO2 25 L (35-45) mm/Hg pO2 62 L (80-100) mm/Hg HCO3 20.0 L (21-28) mmol/L ABG pH 7.44 (7.35-7.45) ABG Total CO2 17.8 L (22-28) mmol/L ABG O2 Saturation 95.1 (95-98) % ABG Base Excess -6.3 L (-2.0-3.0) mmol/L ABG Hemoglobin 7.5 L (11.7-17.4) g/dL ABG Carboxyhemoglobin 1.3 (0.5-1.5) % POC ABG HHb (Measured) 4.8 (0.0-5.0) % ABG Methemoglobin 1.3 (0.0-3.0) % ABG O2 Capacity 10.4 L (16-24) mL/dL Kishor Test Yes A-a O2 Difference 135.0 mm/Hg Hgb O2 Saturation 92.7 L (95.0-98.0) % FiO2 32 % Crit Value Called To elmo jesus rn Blood Gas Notified Time 229 Sodium 138 (132-148) mmol/l Potassium 5.7 H (3.6-5.0) MMOL/L Chloride 107 (98-107) mmol/L Carbon Dioxide 17 L (22-30) mmol/L Anion Gap 20 (10-20) BUN 61 H (9-20) mg/dl Creatinine 5.0 H (0.8-1.5) mg/dL Est GFR ( Amer) 14 Est GFR (Non-Af Amer) 11 POC Glucose (mg/dL) 114 H (65-110) mg/dL Random Glucose 92 (75-110) mg/dL Lactic Acid 3.1 H (0.7-2.1) MMOL/L Calcium 8.6 (8.4-10.2) mg/dL Phosphorus (2.5-4.5) mg/dl Iron (49-181) ug/dL TIBC (250-450) ug/dL % Saturation (20-55) % Total Bilirubin (0.2-1.3) mg/dl AST (17-59) U/L ALT (21-72) U/L Alkaline Phosphatase (38-126) U/L Total Creatine Kinase 526 H (55-170) U/L Total Protein (6.3-8.2) G/DL Albumin (3.5-5.0) g/dL Globulin (2.2-3.9) gm/dL Albumin/Globulin Ratio (1.0-2.1) C. difficile Ag & Toxin (NEGATIVE) 05/14/16 05/14/16 05/13/16 Range/Units 20:20 06:50 19:55 WBC 14.0 H (4.8-10.8) K/uL RBC 4.09 L (4.40-5.90) Mil/uL Hgb 9.0 L (12.0-18.0) g/dL Hct 30.1 L (35.0-51.0) % MCV 73.5 L (80.0-94.0) fl MCH 22.1 L (27.0-31.0) pg MCHC 30.0 L (33.0-37.0) g/dL RDW 17.8 H (11.5-14.5) % Plt Count 373 D (130-400) K/uL Puncture Site pCO2 (35-45) mm/Hg pO2 (80-100) mm/Hg HCO3 (21-28) mmol/L ABG pH (7.35-7.45) ABG Total CO2 (22-28) mmol/L ABG O2 Saturation (95-98) % ABG Base Excess (-2.0-3.0) mmol/L ABG Hemoglobin (11.7-17.4) g/dL ABG Carboxyhemoglobin (0.5-1.5) % POC ABG HHb (Measured) (0.0-5.0) % ABG Methemoglobin (0.0-3.0) % ABG O2 Capacity (16-24) mL/dL Kishor Test A-a O2 Difference mm/Hg Hgb O2 Saturation (95.0-98.0) % FiO2 % Crit Value Called To Blood Gas Notified Time Sodium 138 (132-148) mmol/l Potassium 6.2 H* (3.6-5.0) MMOL/L Chloride 104 (98-107) mmol/L Carbon Dioxide 19 L (22-30) mmol/L Anion Gap 21 H (10-20) BUN 55 H (9-20) mg/dl Creatinine 4.2 H (0.8-1.5) mg/dL Est GFR ( Amer) 17 Est GFR (Non-Af Amer) 14 POC Glucose (mg/dL) (65-110) mg/dL Random Glucose 93 (75-110) mg/dL Lactic Acid (0.7-2.1) MMOL/L Calcium 8.9 (8.4-10.2) mg/dL Phosphorus 5.6 H (2.5-4.5) mg/dl Iron (49-181) ug/dL TIBC (250-450) ug/dL % Saturation (20-55) % Total Bilirubin 1.2 (0.2-1.3) mg/dl AST 85 H (17-59) U/L ALT 39 (21-72) U/L Alkaline Phosphatase 65 (38-126) U/L Total Creatine Kinase 804 H (55-170) U/L Total Protein 5.2 L (6.3-8.2) G/DL Albumin 2.6 L (3.5-5.0) g/dL Globulin 2.6 (2.2-3.9) gm/dL Albumin/Globulin Ratio 1.0 (1.0-2.1) C. difficile Ag & Toxin Negative (NEGATIVE) Laboratory Results - last 24 hr 05/13/16 05/14/16 05/14/16 19:55 06:50 20:20 WBC 14.0 H RBC 4.09 L Hgb 9.0 L Hct 30.1 L MCV 73.5 L MCH 22.1 L MCHC 30.0 L RDW 17.8 H Plt Count 373 D Puncture Site pCO2 pO2 HCO3 ABG pH ABG Total CO2 ABG O2 Saturation ABG Base Excess ABG Hemoglobin ABG Carboxyhemoglobin POC ABG HHb (Measured) ABG Methemoglobin ABG O2 Capacity Kishor Test A-a O2 Difference Hgb O2 Saturation FiO2 Crit Value Called To Blood Gas Notified Time Sodium 138 Potassium 6.2 H* Chloride 104 Carbon Dioxide 19 L Anion Gap 21 H BUN 55 H Creatinine 4.2 H Est GFR ( Amer) 17 Est GFR (Non-Af Amer) 14 POC Glucose (mg/dL) Random Glucose 93 Lactic Acid Calcium 8.9 Phosphorus 5.6 H Iron TIBC % Saturation Total Bilirubin 1.2 AST 85 H ALT 39 Alkaline Phosphatase 65 Total Creatine Kinase 804 H Total Protein 5.2 L Albumin 2.6 L Globulin 2.6 Albumin/Globulin Ratio 1.0 C. difficile Ag & Toxin Negative 05/14/16 05/15/16 05/15/16 22:19 01:30 02:25 WBC RBC Hgb Hct MCV MCH MCHC RDW Plt Count 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 pCO2 25 L pO2 62 L HCO3 20.0 L ABG pH 7.44 ABG Total CO2 17.8 L ABG O2 Saturation 95.1 ABG Base Excess -6.3 L ABG Hemoglobin 7.5 L ABG Carboxyhemoglobin 1.3 POC ABG HHb (Measured) 4.8 ABG Methemoglobin 1.3 ABG O2 Capacity 10.4 L Kishor Test Yes A-a O2 Difference 135.0 Hgb O2 Saturation 92.7 L FiO2 32 Crit Value Called To elmo jesus rn Blood Gas Notified Time 229 Sodium 138 Potassium 5.7 H Chloride 107 Carbon Dioxide 17 L Anion Gap 20 BUN 61 H Creatinine 5.0 H Est GFR ( Amer) 14 Est GFR (Non-Af Amer) 11 POC Glucose (mg/dL) 114 H Random Glucose 92 Lactic Acid 3.1 H Calcium 8.6 Phosphorus Iron TIBC % Saturation Total Bilirubin AST ALT Alkaline Phosphatase Total Creatine Kinase 526 H Total Protein Albumin Globulin Albumin/Globulin Ratio C. difficile Ag & Toxin 05/15/16 05/15/16 05/15/16 04:20 06:47 07:49 WBC RBC Hgb Hct MCV MCH MCHC RDW Plt Count Puncture Site pCO2 pO2 HCO3 ABG pH ABG Total CO2 ABG O2 Saturation ABG Base Excess ABG Hemoglobin ABG Carboxyhemoglobin POC ABG HHb (Measured) ABG Methemoglobin ABG O2 Capacity Kishor Test A-a O2 Difference Hgb O2 Saturation FiO2 Crit Value Called To Blood Gas Notified Time Sodium 140 Potassium 5.7 H Chloride 108 H Carbon Dioxide 18 L Anion Gap 20 BUN 65 H Creatinine 5.1 H 5.0 H Est GFR ( Amer) 13 14 Est GFR (Non-Af Amer) 11 11 POC Glucose (mg/dL) Random Glucose 90 Lactic Acid 2.1 Calcium 8.3 L Phosphorus Iron 14 L TIBC 244 L % Saturation 6 L Total Bilirubin 1.0 AST 62 H D ALT 34 Alkaline Phosphatase 62 Total Creatine Kinase Total Protein 4.9 L Albumin 2.4 L Globulin 2.5 Albumin/Globulin Ratio 1.0 C. difficile Ag & Toxin Fingerstick Blood Sugar Results: 114 Review of Systems - Review of Systems Review of Systems: See HPI Critical Care Progress Note - Nutrition Nutrition: Nutrition Category Date Time Status NPO Diet [DIET] Diets 05/14/16 Breakfast Active Assessment/Plan - Assessment and Plan (Free Text) Assessment: 75 yo. male admitted for Pancolitis transferred to ICU after developing worsening renal failure. 1- Pancolitis- chararaterized by Diarrhea- Infectious vs Ischemic etiolgoy C-diff negative a-GI Dr Das on consult- Input appreciated b-ID Dr Rodney on consult- Input appreciated c-c/w Flagyl & Cipro d-Zofran PRN e-I.V. fluids- D5% + Hco3 @ 150meq f-Repeat labs 2- Acute Kidney Injuy/Acute Renal Failure most likely secondary to pre-renal causes a-Dr Allison neurology on consult- Input appreciated b-Consider Dialysis c-Monitor I/O's 3- Hyperkalemia- trending down 6.2 > 5.7 a-temporary HD catheter b-Dialysis c-Dr. Dodd on board 4- Hx of Myesthenia gravis a-Hold Home meds for now 5- DVT prophylaxis a-SCD for now 6-GI prophylaxis a-40mg I.V. protonix <Gilles Fang V - Last Filed: 05/15/16 17:09> CCU Subjective - Physician Review Events Since Last Encounter (Free Text): 05/15/16 17:07 Patient is see and evaluated at bedside. case is discussed in am rounds. Agree with plan of care as detailed in resident's note CCU Objective - Vital Signs / Intake & Output Vital Signs (Last 4 hours): Vital Signs Temp Pulse Resp BP Pulse Ox 05/15/16 17:00 114 H 16 121/68 100 05/15/16 16:00 98.8 F 111 H 14 110/51 L 100 05/15/16 14:56 98.3 F 105 H 16 139/63 100 05/15/16 14:00 18 142/73 98 05/15/16 13:46 97.8 F 110 H 18 146/76 98 Intake and Output (Last 8hrs): Intake & Output 05/15/16 05/15/16 05/15/16 06:59 14:59 22:59 Intake Total 1480 820 160 Output Total 0 0 Balance 1480 820 160 Weight 189 lb Intake: IV 1380 720 160 Intake, Piggyback 100 100 Output: Urine 0 0 Urethral (Aviles) 0 0 - Medications Active Medications: Active Medications Generic Name Dose Route Start Last Admin Trade Name Freq PRN Reason Stop Dose Admin Cholestyramine Resin 4 gm 05/15/16 09:00 05/15/16 09:20 Questran PO Not Given DAILY YOBANI Metronidazole 100 mls @ 100 mls/hr 05/14/16 17:00 05/15/16 17:05 Flagyl 500mg/100ml Ns IVPB 100 mls/hr Q8 YOBANI Administration Sodium Bicarbonate 150 meq/ 1,150 mls @ 80 mls/hr 05/14/16 23:15 05/15/16 17:05 Dextrose IV 80 mls/hr .[id number] YOBANI Administration Pantoprazole Sodium 40 mg 05/14/16 09:00 05/15/16 09:19 Protonix Inj IVP 40 mg DAILY YOBANI Administration Pneumococcal Polyvalent Vaccine 0.5 ml 05/16/16 21:00 Pneumovax 23 Vaccine IM 05/16/16 21:01 .ONCE ONE - Patient Studies Lab Studies: Microbiology Studies 05/13/16 17:30 Blood Culture - Preliminary Blood NO GROWTH AFTER 24 HOURS 05/13/16 17:30 Blood Culture - Preliminary Blood NO GROWTH AFTER 24 HOURS Lab Studies 05/15/16 05/15/16 05/15/16 Range/Units 13:30 11:07 07:49 PT 11.8 H (9.6-11.2) SECONDS INR 1.13 H (0.92-1.08) APTT 37.5 H (23.3-32.5) SECONDS Puncture Site pCO2 (35-45) mm/Hg pO2 (80-100) mm/Hg HCO3 (21-28) mmol/L ABG pH (7.35-7.45) ABG Total CO2 (22-28) mmol/L ABG O2 Saturation (95-98) % ABG Base Excess (-2.0-3.0) mmol/L ABG Hemoglobin (11.7-17.4) g/dL ABG Carboxyhemoglobin (0.5-1.5) % POC ABG HHb (Measured) (0.0-5.0) % ABG Methemoglobin (0.0-3.0) % ABG O2 Capacity (16-24) mL/dL Kishor Test A-a O2 Difference mm/Hg Hgb O2 Saturation (95.0-98.0) % FiO2 % Crit Value Called To Blood Gas Notified Time Sodium (132-148) mmol/l Potassium (3.6-5.0) MMOL/L Chloride (98-107) mmol/L Carbon Dioxide (22-30) mmol/L Anion Gap (10-20) BUN (9-20) mg/dl Creatinine 5.0 H (0.8-1.5) mg/dL Est GFR ( Amer) 14 Est GFR (Non-Af Amer) 11 POC Glucose (mg/dL) (65-110) mg/dL Random Glucose (75-110) mg/dL Lactic Acid (0.7-2.1) MMOL/L Calcium (8.4-10.2) mg/dL Phosphorus (2.5-4.5) mg/dl Iron (49-181) ug/dL TIBC (250-450) ug/dL % Saturation (20-55) % Total Bilirubin (0.2-1.3) mg/dl AST (17-59) U/L ALT (21-72) U/L Alkaline Phosphatase (38-126) U/L Total Creatine Kinase (55-170) U/L Total Protein (6.3-8.2) G/DL Albumin (3.5-5.0) g/dL Globulin (2.2-3.9) gm/dL Albumin/Globulin Ratio (1.0-2.1) Procalcitonin (0.19-0.49) NG/ML Urine Osmolality 309 (300-1000) mosm/kg Ur Random Sodium 150 meq/L Ur Random Potassium 8.2 mmol/L Hepatitis A IgM Ab (NEGATIVE) Hep Bs Antigen (NEGATIVE) Hep B Core IgM Ab (NEGATIVE) Hepatitis C Antibody (NEGATIVE) HIV 1&2 Antibody Screen (NEGATIVE) 05/15/16 05/15/16 05/15/16 Range/Units 06:47 04:20 02:25 PT (9.6-11.2) SECONDS INR (0.92-1.08) APTT (23.3-32.5) SECONDS 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 pCO2 25 L (35-45) mm/Hg pO2 62 L (80-100) mm/Hg HCO3 20.0 L (21-28) mmol/L ABG pH 7.44 (7.35-7.45) ABG Total CO2 17.8 L (22-28) mmol/L ABG O2 Saturation 95.1 (95-98) % ABG Base Excess -6.3 L (-2.0-3.0) mmol/L ABG Hemoglobin 7.5 L (11.7-17.4) g/dL ABG Carboxyhemoglobin 1.3 (0.5-1.5) % POC ABG HHb (Measured) 4.8 (0.0-5.0) % ABG Methemoglobin 1.3 (0.0-3.0) % ABG O2 Capacity 10.4 L (16-24) mL/dL Kishor Test Yes A-a O2 Difference 135.0 mm/Hg Hgb O2 Saturation 92.7 L (95.0-98.0) % FiO2 32 % Crit Value Called To elmo jseus rn Blood Gas Notified Time 229 Sodium 140 (132-148) mmol/l Potassium 5.7 H (3.6-5.0) MMOL/L Chloride 108 H (98-107) mmol/L Carbon Dioxide 18 L (22-30) mmol/L Anion Gap 20 (10-20) BUN 65 H (9-20) mg/dl Creatinine 5.1 H (0.8-1.5) mg/dL Est GFR ( Amer) 13 Est GFR (Non-Af Amer) 11 POC Glucose (mg/dL) (65-110) mg/dL Random Glucose 90 (75-110) mg/dL Lactic Acid 2.1 (0.7-2.1) MMOL/L Calcium 8.3 L (8.4-10.2) mg/dL Phosphorus (2.5-4.5) mg/dl Iron 14 L (49-181) ug/dL TIBC 244 L (250-450) ug/dL % Saturation 6 L (20-55) % Total Bilirubin 1.0 (0.2-1.3) mg/dl AST 62 H D (17-59) U/L ALT 34 (21-72) U/L Alkaline Phosphatase 62 (38-126) U/L Total Creatine Kinase (55-170) U/L Total Protein 4.9 L (6.3-8.2) G/DL Albumin 2.4 L (3.5-5.0) g/dL Globulin 2.5 (2.2-3.9) gm/dL Albumin/Globulin Ratio 1.0 (1.0-2.1) Procalcitonin (0.19-0.49) NG/ML Urine Osmolality (300-1000) mosm/kg Ur Random Sodium meq/L Ur Random Potassium mmol/L Hepatitis A IgM Ab Negative (NEGATIVE) Hep Bs Antigen Negative (NEGATIVE) Hep B Core IgM Ab Negative (NEGATIVE) Hepatitis C Antibody Negative (NEGATIVE) HIV 1&2 Antibody Screen Negative (NEGATIVE) 05/15/16 05/14/16 05/14/16 Range/Units 01:30 22:19 20:20 PT (9.6-11.2) SECONDS INR (0.92-1.08) APTT (23.3-32.5) SECONDS Puncture Site pCO2 (35-45) mm/Hg pO2 (80-100) mm/Hg HCO3 (21-28) mmol/L ABG pH (7.35-7.45) ABG Total CO2 (22-28) mmol/L ABG O2 Saturation (95-98) % ABG Base Excess (-2.0-3.0) mmol/L ABG Hemoglobin (11.7-17.4) g/dL ABG Carboxyhemoglobin (0.5-1.5) % POC ABG HHb (Measured) (0.0-5.0) % ABG Methemoglobin (0.0-3.0) % ABG O2 Capacity (16-24) mL/dL Kishor Test A-a O2 Difference mm/Hg Hgb O2 Saturation (95.0-98.0) % FiO2 % Crit Value Called To Blood Gas Notified Time Sodium 138 138 (132-148) mmol/l Potassium 5.7 H 6.2 H* (3.6-5.0) MMOL/L Chloride 107 104 (98-107) mmol/L Carbon Dioxide 17 L 19 L (22-30) mmol/L Anion Gap 20 21 H (10-20) BUN 61 H 55 H (9-20) mg/dl Creatinine 5.0 H 4.2 H (0.8-1.5) mg/dL Est GFR ( Amer) 14 17 Est GFR (Non-Af Amer) 11 14 POC Glucose (mg/dL) 114 H (65-110) mg/dL Random Glucose 92 93 (75-110) mg/dL Lactic Acid 3.1 H (0.7-2.1) MMOL/L Calcium 8.6 8.9 (8.4-10.2) mg/dL Phosphorus 5.6 H (2.5-4.5) mg/dl Iron (49-181) ug/dL TIBC (250-450) ug/dL % Saturation (20-55) % Total Bilirubin 1.2 (0.2-1.3) mg/dl AST 85 H (17-59) U/L ALT 39 (21-72) U/L Alkaline Phosphatase 65 (38-126) U/L Total Creatine Kinase 526 H 804 H (55-170) U/L Total Protein 5.2 L (6.3-8.2) G/DL Albumin 2.6 L (3.5-5.0) g/dL Globulin 2.6 (2.2-3.9) gm/dL Albumin/Globulin Ratio 1.0 (1.0-2.1) Procalcitonin (0.19-0.49) NG/ML Urine Osmolality (300-1000) mosm/kg Ur Random Sodium meq/L Ur Random Potassium mmol/L Hepatitis A IgM Ab (NEGATIVE) Hep Bs Antigen (NEGATIVE) Hep B Core IgM Ab (NEGATIVE) Hepatitis C Antibody (NEGATIVE) HIV 1&2 Antibody Screen (NEGATIVE) 05/14/16 Range/Units 16:30 PT (9.6-11.2) SECONDS INR (0.92-1.08) APTT (23.3-32.5) SECONDS Puncture Site pCO2 (35-45) mm/Hg pO2 (80-100) mm/Hg HCO3 (21-28) mmol/L ABG pH (7.35-7.45) ABG Total CO2 (22-28) mmol/L ABG O2 Saturation (95-98) % ABG Base Excess (-2.0-3.0) mmol/L ABG Hemoglobin (11.7-17.4) g/dL ABG Carboxyhemoglobin (0.5-1.5) % POC ABG HHb (Measured) (0.0-5.0) % ABG Methemoglobin (0.0-3.0) % ABG O2 Capacity (16-24) mL/dL Kishor Test A-a O2 Difference mm/Hg Hgb O2 Saturation (95.0-98.0) % FiO2 % Crit Value Called To Blood Gas Notified Time Sodium (132-148) mmol/l Potassium (3.6-5.0) MMOL/L Chloride (98-107) mmol/L Carbon Dioxide (22-30) mmol/L Anion Gap (10-20) BUN (9-20) mg/dl Creatinine (0.8-1.5) mg/dL Est GFR ( Amer) Est GFR (Non-Af Amer) POC Glucose (mg/dL) (65-110) mg/dL Random Glucose (75-110) mg/dL Lactic Acid (0.7-2.1) MMOL/L Calcium (8.4-10.2) mg/dL Phosphorus (2.5-4.5) mg/dl Iron (49-181) ug/dL TIBC (250-450) ug/dL % Saturation (20-55) % Total Bilirubin (0.2-1.3) mg/dl AST (17-59) U/L ALT (21-72) U/L Alkaline Phosphatase (38-126) U/L Total Creatine Kinase (55-170) U/L Total Protein (6.3-8.2) G/DL Albumin (3.5-5.0) g/dL Globulin (2.2-3.9) gm/dL Albumin/Globulin Ratio (1.0-2.1) Procalcitonin 173.06 H (0.19-0.49) NG/ML Urine Osmolality (300-1000) mosm/kg Ur Random Sodium meq/L Ur Random Potassium mmol/L Hepatitis A IgM Ab (NEGATIVE) Hep Bs Antigen (NEGATIVE) Hep B Core IgM Ab (NEGATIVE) Hepatitis C Antibody (NEGATIVE) HIV 1&2 Antibody Screen (NEGATIVE) Laboratory Results - last 24 hr 05/14/16 05/14/16 05/14/16 16:30 20:20 22:19 PT INR APTT Puncture Site pCO2 pO2 HCO3 ABG pH ABG Total CO2 ABG O2 Saturation ABG Base Excess ABG Hemoglobin ABG Carboxyhemoglobin POC ABG HHb (Measured) ABG Methemoglobin ABG O2 Capacity Kishor Test A-a O2 Difference Hgb O2 Saturation FiO2 Crit Value Called To Blood Gas Notified Time Sodium 138 Potassium 6.2 H* Chloride 104 Carbon Dioxide 19 L Anion Gap 21 H BUN 55 H Creatinine 4.2 H Est GFR ( Amer) 17 Est GFR (Non-Af Amer) 14 POC Glucose (mg/dL) 114 H Random Glucose 93 Lactic Acid Calcium 8.9 Phosphorus 5.6 H Iron TIBC % Saturation Total Bilirubin 1.2 AST 85 H ALT 39 Alkaline Phosphatase 65 Total Creatine Kinase 804 H Total Protein 5.2 L Albumin 2.6 L Globulin 2.6 Albumin/Globulin Ratio 1.0 Procalcitonin 173.06 H Urine Osmolality Ur Random Sodium Ur Random Potassium Hepatitis A IgM Ab Hep Bs Antigen Hep B Core IgM Ab Hepatitis C Antibody HIV 1&2 Antibody Screen 05/15/16 05/15/16 05/15/16 01:30 02:25 04:20 PT INR APTT 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1 H 2.1 Calcium 8.6 8.3 L Phosphorus Iron TIBC % Saturation Total Bilirubin 1.0 AST 62 H D ALT 34 Alkaline Phosphatase 62 Total Creatine Kinase 526 H Total Protein 4.9 L Albumin 2.4 L Globulin 2.5 Albumin/Globulin Ratio 1.0 Procalcitonin Urine Osmolality Ur Random Sodium Ur Random Potassium Hepatitis A IgM Ab Negative Hep Bs Antigen Negative Hep B Core IgM Ab Negative Hepatitis C Antibody Negative HIV 1&2 Antibody Screen Negative 05/15/16 05/15/16 05/15/16 06:47 07:49 11:07 PT 11.8 H INR 1.13 H APTT 37.5 H Puncture Site pCO2 pO2 HCO3 ABG pH ABG Total CO2 ABG O2 Saturation ABG Base Excess ABG Hemoglobin ABG Carboxyhemoglobin POC ABG HHb (Measured) ABG Methemoglobin ABG O2 Capacity Kishor Test A-a O2 Difference Hgb O2 Saturation FiO2 Crit Value Called To Blood Gas Notified Time Sodium Potassium Chloride Carbon Dioxide Anion Gap BUN Creatinine 5.0 H Est GFR ( Amer) 14 Est GFR (Non-Af Amer) 11 POC Glucose (mg/dL) Random Glucose Lactic Acid Calcium Phosphorus Iron 14 L TIBC 244 L % Saturation 6 L Total Bilirubin AST ALT Alkaline Phosphatase Total Creatine Kinase Total Protein Albumin Globulin Albumin/Globulin Ratio Procalcitonin Urine Osmolality Ur Random Sodium Ur Random Potassium Hepatitis A IgM Ab Hep Bs Antigen Hep B Core IgM Ab Hepatitis C Antibody HIV 1&2 Antibody Screen 05/15/16 13:30 PT INR APTT Puncture Site pCO2 pO2 HCO3 ABG pH ABG Total CO2 ABG O2 Saturation ABG Base Excess ABG Hemoglobin ABG Carboxyhemoglobin POC ABG HHb (Measured) ABG Methemoglobin ABG O2 Capacity Kishor Test A-a O2 Difference Hgb O2 Saturation FiO2 Crit Value Called To Blood Gas Notified Time Sodium Potassium Chloride Carbon Dioxide Anion Gap BUN Creatinine Est GFR ( Amer) Est GFR (Non-Af Amer) POC Glucose (mg/dL) Random Glucose Lactic Acid Calcium Phosphorus Iron TIBC % Saturation Total Bilirubin AST ALT Alkaline Phosphatase Total Creatine Kinase Total Protein Albumin Globulin Albumin/Globulin Ratio Procalcitonin Urine Osmolality 309 Ur Random Sodium 150 Ur Random Potassium 8.2 Hepatitis A IgM Ab Hep Bs Antigen Hep B Core IgM Ab Hepatitis C Antibody HIV 1&2 Antibody Screen Critical Care Progress Note - Nutrition Nutrition: Nutrition Category Date Time Status NPO Diet [DIET] Diets 05/14/16 Breakfast Active
--- NOTE | 2016-05-15 10:00 | PQF GENQUE ---
Dr. Rodríguez, The attending physician is required to clarify conflicting documentation in the medical record. The following documentation is noted in the medical record : after work up completed: -Diagnosis 1: H and P: Pancolitis Status: Acute (4) Gastroenteritis and colitis, viral Status: Acute (5) Toxic colitis Status: Acute Documented by: attending Location: H and P -Diagnosis 2: Likely infectious enterocolitis. Documented by: Trudi Monahan Food Scientist Location: 05/14 GI consult note Pulse: 87->90->97->97->93->60->92 B/P:134/74->90/40->106/47-.106/47->153/103->92/55->95/62 05/13 Pulse Oxy low: 90 on 05/15 low:88 nasal cannula->Venturi Mask CT Abdomen/Pelvis: Impression: Infectious versus inflammatory davies colitis. Irregular more extensive mural thickening involving the rectosigmoid colon, most likely infectious/ inflammatory and less likely neoplastic in origin. Nonspecific enteritis involving proximal small intestine. No evidence bowel obstruction. Additional minor findings as above. . WBC:27.9->14.0 left shift: Band:9 C-diff Ag& Toxin Negative Clinical labs pending,IVF's, IVAB's This form is a permanent part of the medical record Clarification of your documentation is requested to better reflect the severity of illness and intensity of treatment of your patient. Indicators present [] Specify: [] [] Specify: [] [] Specify: [] [] Specify: [] Location in the medical record that reflects the above clinical findings: [] Treatment Provided: [] PHYSICIAN'S RESPONSE Based on your medical judgment of the clinical indicators outlined above please clarify the following: [] Practitioner response [] If unable to determine, please check the box, sign and date. Present On Admission (POA) Indicator: [] Present at the time of admission [] Not present at the time of admission [] Clinically Undetermined In responding to this query, please exercise your independent professional judgment. The fact that a question is asked does not imply that any particular answer is desired or expected. Thank you for your clarification on this documentation. If you have any questions please call. * Thank you, Rosetta Cam RN BSN ext. #[phone] MTDD
--- NOTE | 2016-05-15 10:52 | CP.PCM.PN ---
Subjective - Date & Time of Evaluation Date of Evaluation: 05/15/16 Time of Evaluation: 09:00 - Subjective Subjective: developed ANURIA/ ARF now in ICU ALL CULTURES NEG THUS FAR GOING TO RECEIVE HD AFEBRILE AWAKE ALERT ON VENTIMASK IN NAD FAMILY AT BEDSIDE C DIFF NEGATIVE Objective - Vital Signs/Intake and Output Vital Signs (last 24 hours): Temp Pulse Resp BP Pulse Ox 97.4 F L 108 H 16 96/63 L 98 05/15/16 08:00 05/15/16 09:00 05/15/16 09:00 05/15/16 09:00 05/15/16 09:00 Intake and Output: 05/15/16 05/15/16 06:59 18:59 Intake Total 1480 500 Output Total 0 0 Balance 1480 500 - Medications Medications: Current Medications Cholestyramine Resin (Questran) 4 gm PO DAILY [facility] Last Admin: 05/15/16 09:20 Dose: Not Given Metronidazole (Flagyl 500mg/100ml Ns) 100 mls @ 100 mls/hr IVPB Q8 [facility] Last Admin: 05/15/16 09:19 Dose: 100 mls/hr Sodium Bicarbonate 150 meq/ (Dextrose) 1,150 mls @ 80 mls/hr IV .[id number] [facility] Last Admin: 05/15/16 00:30 Dose: 80 mls/hr Pantoprazole Sodium (Protonix Inj) 40 mg IVP DAILY [facility] Last Admin: 05/15/16 09:19 Dose: 40 mg Pneumococcal Polyvalent Vaccine (Pneumovax 23 Vaccine) 0.5 ml IM .ONCE ONE Stop: 05/16/16 21:01 - Labs Labs: 05/14/16 06:50 05/15/16 07:49 - Constitutional Appears: Non-toxic - Head Exam Head Exam: ATRAUMATIC, NORMOCEPHALIC - Eye Exam Eye Exam: PERRL. absent: Scleral icterus - ENT Exam ENT Exam: Mucous Membranes Dry - Neck Exam Neck Exam: absent: Lymphadenopathy - Respiratory Exam Respiratory Exam: Decreased Breath Sounds, Clear to Ausculation Bilateral - Cardiovascular Exam Cardiovascular Exam: REGULAR RHYTHM, +S1, +S2 - GI/Abdominal Exam GI & Abdominal Exam: Distended, Soft, Diminished Bowel Sounds. absent: Tenderness, Organomegaly - Rectal Exam Rectal Exam: Deferred - Exam Exam: NORMAL INSPECTION - Extremities Exam Extremities Exam: absent: Calf Tenderness, Pedal Edema - Back Exam Back Exam: absent: CVA tenderness (L), CVA tenderness (R) - Neurological Exam Neurological Exam: Alert, Awake, Oriented x3 - Psychiatric Exam Psychiatric exam: Depressed - Skin Skin Exam: Dry, Intact Assessment and Plan (1) Dehydration Status: Acute (2) Pancolitis Status: Acute (3) Renal insufficiency Status: Acute (4) Hypovolemia dehydration Status: Acute - Assessment and Plan (Free Text) Assessment: PANCOLITIS- ETIOLOGY UNCLEAR ATN ETIOLOGY UNCLEAR - DID NOT RECEIVE CONTRAST, NO BETA LACTAMS FOR HD GI ON BOARD PROGNOSIS GUARDED
--- NOTE | 2016-05-15 10:57 | CP.PCM.CON ---
History of Present Illness - History of Present Illness History of Present Illness: pt seen and examined, full consult is dictated #[id number] 1. OLY, most likely sec to atn sec to sepsis 2. hyperkalemia 3. met. acidosis 4. lactic acidosis 5. Diarrhea, r/o Gastroenteritis viral vs bacterial continue ivf d5w with [id number] 150 meq/lit at 80 ml/hr d/w pt's family, daughter, pt's , regarding hd agreed for hd and signed consent for hd by pt's check pt/ptt stat HD after sarah catheter placement Past Patient History - Past Medical History & Family History Past Medical History?: Yes - Past Social History Smoking Status: Never Smoked Chewing Tobacco Use: No Cigar Use: No Alcohol: None Drugs: Denies Home Situation {Lives}: With Family - CARDIAC Hx Cardiac Disorders: Yes Hx Hypercholesterolemia: Yes Hx Hypertension: Yes - PULMONARY Hx Respiratory Disorders: No - NEUROLOGICAL Hx Neurological Disorder: No - HEENT Hx HEENT Problems: Yes Other/Comment: uses eye glasses - RENAL Hx Chronic Kidney Disease: No - ENDOCRINE/METABOLIC Hx Endocrine Disorders: Yes Other/Comment: Hx Myasthenia Gravis - HEMATOLOGICAL/ONCOLOGICAL Hx Blood Disorders: No - INTEGUMENTARY Hx Dermatological Problems: No - MUSCULOSKELETAL/RHEUMATOLOGICAL Hx Musculoskeletal Disorders: No Hx Falls: No - GASTROINTESTINAL Hx Gastrointestinal Disorders: Yes Hx Diverticulitis: Yes Hx Gastritis: Yes - GENITOURINARY/GYNECOLOGICAL Hx Genitourinary Disorders: No - PSYCHIATRIC Hx Psychophysiologic Disorder: No Hx Substance Use: No - SURGICAL HISTORY Hx Surgeries: No - ANESTHESIA Hx Anesthesia: No Meds Allergies/Adverse Reactions: Allergies Allergy/AdvReac Type Severity Reaction Status Date / Time No Known Allergies Allergy Verified 05/13/16 13:12 - Medications Medications: Current Medications Cholestyramine Resin (Questran) 4 gm PO DAILY [facility] Last Admin: 05/15/16 09:20 Dose: Not Given Metronidazole (Flagyl 500mg/100ml Ns) 100 mls @ 100 mls/hr IVPB Q8 [facility] Last Admin: 05/15/16 09:19 Dose: 100 mls/hr Sodium Bicarbonate 150 meq/ (Dextrose) 1,150 mls @ 80 mls/hr IV .[id number] [facility] Last Admin: 05/15/16 00:30 Dose: 80 mls/hr Pantoprazole Sodium (Protonix Inj) 40 mg IVP DAILY [facility] Last Admin: 05/15/16 09:19 Dose: 40 mg Pneumococcal Polyvalent Vaccine (Pneumovax 23 Vaccine) 0.5 ml IM .ONCE ONE Stop: 05/16/16 21:01 Results - Vital Signs Recent Vital Signs: Last Vital Signs Temp 97.4 F L 05/15/16 08:00 Pulse 108 H 05/15/16 09:00 Resp 16 05/15/16 09:00 BP 96/63 L 05/15/16 09:00 Pulse Ox 98 05/15/16 09:00 - Labs Result Diagrams: 05/14/16 06:50 05/15/16 07:49 Labs: Laboratory Results - last 24 hr 05/13/16 05/14/16 05/14/16 19:55 06:50 20:20 WBC 14.0 H RBC 4.09 L Hgb 9.0 L Hct 30.1 L MCV 73.5 L MCH 22.1 L MCHC 30.0 L RDW 17.8 H Plt Count 373 D Puncture Site pCO2 pO2 HCO3 ABG pH ABG Total CO2 ABG O2 Saturation ABG Base Excess ABG Hemoglobin ABG Carboxyhemoglobin POC ABG HHb (Measured) ABG Methemoglobin ABG O2 Capacity Kishor Test A-a O2 Difference Hgb O2 Saturation FiO2 Crit Value Called To Blood Gas Notified Time Sodium 138 Potassium 6.2 H* Chloride 104 Carbon Dioxide 19 L Anion Gap 21 H BUN 55 H Creatinine 4.2 H Est GFR ( Amer) 17 Est GFR (Non-Af Amer) 14 POC Glucose (mg/dL) Random Glucose 93 Lactic Acid Calcium 8.9 Phosphorus 5.6 H Iron TIBC % Saturation Total Bilirubin 1.2 AST 85 H ALT 39 Alkaline Phosphatase 65 Total Creatine Kinase 804 H Total Protein 5.2 L Albumin 2.6 L Globulin 2.6 Albumin/Globulin Ratio 1.0 C. difficile Ag & Toxin Negative 05/14/16 05/15/16 05/15/16 22:19 01:30 02:25 WBC RBC Hgb Hct MCV MCH MCHC RDW Plt Count Puncture Site [employer] pCO2 25 L pO2 62 L HCO3 20.0 L ABG pH 7.44 ABG Total CO2 17.8 L ABG O2 Saturation 95.1 ABG Base Excess -6.3 L ABG Hemoglobin 7.5 L ABG Carboxyhemoglobin 1.3 POC ABG HHb (Measured) 4.8 ABG Methemoglobin 1.3 ABG O2 Capacity 10.4 L Kishor Test Yes A-a O2 Difference 135.0 Hgb O2 Saturation 92.7 L FiO2 32 Crit Value Called To elmo jesus rn Blood Gas Notified Time 229 Sodium 138 Potassium 5.7 H Chloride 107 Carbon Dioxide 17 L Anion Gap 20 BUN 61 H Creatinine 5.0 H Est GFR ( Amer) 14 Est GFR (Non-Af Amer) 11 POC Glucose (mg/dL) 114 H Random Glucose 92 Lactic Acid 3.1 H Calcium 8.6 Phosphorus Iron TIBC % Saturation Total Bilirubin AST ALT Alkaline Phosphatase Total Creatine Kinase 526 H Total Protein Albumin Globulin Albumin/Globulin Ratio C. difficile Ag & Toxin 05/15/16 05/15/16 05/15/16 04:20 06:47 07:49 WBC RBC Hgb Hct MCV MCH MCHC RDW Plt Count Puncture Site pCO2 pO2 HCO3 ABG pH ABG Total CO2 ABG O2 Saturation ABG Base Excess ABG Hemoglobin ABG Carboxyhemoglobin POC ABG HHb (Measured) ABG Methemoglobin ABG O2 Capacity Kishor Test A-a O2 Difference Hgb O2 Saturation FiO2 Crit Value Called To Blood Gas Notified Time Sodium 140 Potassium 5.7 H Chloride 108 H Carbon Dioxide 18 L Anion Gap 20 BUN 65 H Creatinine 5.1 H 5.0 H Est GFR ( Amer) 13 14 Est GFR (Non-Af Amer) 11 11 POC Glucose (mg/dL) Random Glucose 90 Lactic Acid 2.1 Calcium 8.3 L Phosphorus Iron 14 L TIBC 244 L % Saturation 6 L Total Bilirubin 1.0 AST 62 H D ALT 34 Alkaline Phosphatase 62 Total Creatine Kinase Total Protein 4.9 L Albumin 2.4 L Globulin 2.5 Albumin/Globulin Ratio 1.0 C. difficile Ag & Toxin
--- NOTE | 2016-05-15 11:13 | RAD ---
HISTORY: SOB/Hypoxemia COMPARISON: Comparison chest 05/14/2016. Comparison also made with CT scan abdomen pelvis 05/13/2016 which imaged both lung bases. FINDINGS: LUNGS: Poor inspiration with low lung volumes, mild crowded bronchovascular markings and mild bibasilar atelectasis. Developing infiltrates could be excluded with followup radiographs. Questionable small bilateral effusions. PLEURA: No pneumothorax apparent. CARDIOVASCULAR: Cardiomegaly. Aorta is slightly ectatic and uncoiled. OSSEOUS STRUCTURES: No significant abnormalities. VISUALIZED UPPER ABDOMEN: Normal. OTHER FINDINGS: None. IMPRESSION: Poor inspiration with low lung volumes, mild crowded bronchovascular markings and mild bibasilar atelectasis. Developing infiltrates could be excluded with followup radiographs. Questionable small bilateral effusions.
[2016-05-15 11:28] LABS: PARTIAL THROMBOPLASTIN TIME 37.5 SECONDS (23.3-32.5)
--- NOTE | 2016-05-15 12:05 | RAD ---
HISTORY: fluid overload COMPARISON: No prior study available comparison however correlation made with CT scan abdomen pelvis 05/13/2016 which imaged both lung bases. FINDINGS: LUNGS: Poor inspiration with low lung volumes, mild crowded bronchovascular markings and mild bibasilar atelectasis left greater than right. Small left-sided effusion cannot be excluded. PLEURA: No pneumothorax apparent. CARDIOVASCULAR: Heart remains enlarged. OSSEOUS STRUCTURES: No significant abnormalities. VISUALIZED UPPER ABDOMEN: Normal. OTHER FINDINGS: None. IMPRESSION: Poor inspiration with low lung volumes, mild crowded bronchovascular markings and mild bibasilar atelectasis left greater than right. Small left-sided effusion cannot be excluded. No evidence of cristofer pulmonary edema
[2016-05-15] MEDS ORDERED: Lidocaine 1% Inj (20ml) ONE (13:41)
--- NOTE | 2016-05-15 13:45 | PCM.SURG1 ---
Surgeon's Initial Post Op Note - Surgeon's Notes Surgeon: Panda Pérez MD Photo Printer: NONE Type of Anesthesia: Local Pre-Operative Diagnosis: Renal failure Operative Findings: Patent right IJV Post-Operative Diagnosis: Renal failure Operation Performed: Right IJV non tunneled HD catheter placement. Specimen/Specimens Removed: NONE Estimated Blood Loss: EBL {In ML}: 4 Blood Products Given: N/A Drains Used: No Drains Post-Op Condition: Poor Date of Surgery/Procedure: 05/15/16 Time of Surgery/Procedure: 14:00
--- NOTE | 2016-05-15 17:18 | CP.PCM.PN ---
Subjective - Date & Time of Evaluation Date of Evaluation: 05/15/16 Time of Evaluation: 17:16 - Subjective Subjective: Patient currently with acute renal failure and seen by nephrology. Abdominal pain much improved. Objective - Vital Signs/Intake and Output Vital Signs (last 24 hours): Temp Pulse Resp BP Pulse Ox 98.8 F 114 H 16 121/68 100 05/15/16 16:00 05/15/16 17:00 05/15/16 17:00 05/15/16 17:00 05/15/16 17:00 Intake and Output: 05/15/16 05/15/16 06:59 18:59 Intake Total 1480 980 Output Total 0 0 Balance 1480 980 - Medications Medications: Current Medications Cholestyramine Resin (Questran) 4 gm PO DAILY [facility] Last Admin: 05/15/16 09:20 Dose: Not Given Metronidazole (Flagyl 500mg/100ml Ns) 100 mls @ 100 mls/hr IVPB Q8 [facility] Last Admin: 05/15/16 17:05 Dose: 100 mls/hr Sodium Bicarbonate 150 meq/ (Dextrose) 1,150 mls @ 80 mls/hr IV .[id number] [facility] Last Admin: 05/15/16 17:05 Dose: 80 mls/hr Pantoprazole Sodium (Protonix Inj) 40 mg IVP DAILY [facility] Last Admin: 05/15/16 09:19 Dose: 40 mg Pneumococcal Polyvalent Vaccine (Pneumovax 23 Vaccine) 0.5 ml IM .ONCE ONE Stop: 05/16/16 21:01 - Labs Labs: 05/14/16 06:50 05/15/16 07:49 PT 11.8 SECONDS (9.6-11.2) H 05/15/16 11:07 INR 1.13 (0.92-1.08) H 05/15/16 11:07 APTT 37.5 SECONDS (23.3-32.5) H 05/15/16 11:07 - Head Exam Head Exam: ATRAUMATIC - Eye Exam Eye Exam: Normal appearance Pupil Exam: PERRL - Neck Exam Neck Exam: Full ROM - Cardiovascular Exam Cardiovascular Exam: REGULAR RHYTHM, +S1, +S2 - GI/Abdominal Exam GI & Abdominal Exam: Soft. absent: Tenderness Assessment and Plan (1) Pancolitis Assessment & Plan: Colitis clinically better. Continue abx Status: Acute
[2016-05-16] MEDS: metroNIDAZOLE 500mg/100ml NS 100 ML IVPB SCH ×3 (01:30→17:28)
[2016-05-16 05:16] LABS: HEMATOCRIT 24.5 % (35.0-51.0); MEAN CELL VOLUME 69.9 fl (80.0-94.0); MEAN CORPUSCULAR HEMOGLOBIN 22.6 pg (27.0-31.0); MEAN CORPUSCULAR HGB CONC 32.3 g/dL (33.0-37.0); RED CELL DISTRIBUTION WIDTH 18.5 % (11.5-14.5); WHITE BLOOD COUNT 9.9 K/uL (4.8-10.8)
[2016-05-16 05:56] LABS: ALB/GLOB RATIO 0.9 (1.0-2.1); BILIRUBIN,TOTAL 0.7 mg/dl (0.2-1.3); CALCIUM 7.9 mg/dL (8.4-10.2); POTASSIUM 4.9 MMOL/L (3.6-5.0); TOTAL PROTEIN 4.8 G/DL (6.3-8.2)
[2016-05-16] MEDS: Sodium Bicarbonate 8.4% 150 MEQ in Dextrose 5% In Water 1,000 ML IV SCH (06:03)
--- NOTE | 2016-05-16 06:24 | CON ---
DATE: 05/14/2016 The patient is located in ICU bed [address]. Requested by Dr. Miguel Rodríguez. REASON FOR RENAL CONSULTATION: Acute renal failure, hyperkalemia, metabolic acidosis, and enuresis. The patient is a 75-year-old elderly male with a history of hypertension and diverticulosis,Mysthesinia gravis,, who was admitted through the Emergency Room with a chief complaint of severe diarrhea started after he had dinner on Sunday night, and then around 1 a.m. he started having abdominal cramps and severe diarrhea, and the patient was brought for further evaluation. After further evaluation the patient was found to have acute renal failure on admission with a creatinine of 1.7, and also feeling weak and tired, and wobbly , unable to ambulate. Now renal consult requested for worsening renal function. The patient claims he had multiple episodes of nonbloody diarrhea. Denies any fever, cough. Denies any chest pain, palpitation. Denies any swelling of the legs. The patient complains of slight dizziness, and no loss of consciousness. PAST MEDICAL HISTORY: Significant for diverticulosis and hypertension, and also mysthesinia gravis PAST SURGICAL HISTORY: Denies. ALLERGIES: No known drug allergies. SOCIAL HISTORY: No smoking. Occasional alcohol social. No drug abuse. PERSONAL HISTORY: He is and he has 3 children. FAMILY HISTORY: Not significant. REVIEW OF THE SYSTEMS: Significant for profuse diarrhea and abdominal pain and cramps, and weakness, and dizziness, and wobbly. All other review of systems reviewed and are negative. HOME MEDICATIONS: Include amlodipine, valsartan, and hydrochlorothiazide 10/320 /25 mg daily, omeprazole 40 mg daily, aspirin 81 mg daily, and Namzaric ( memantine and donepezil) daily, and metoprolol 100 mg daily, prednisone 10 mg p.o. daily, and Mestinon 60 mg p.o. q.i.d., Crestor 5 mg p.o. daily. HIS CURRENT MEDICATIONS IN THE HOSPITAL INCLUDE FOLLOWS: Metronidazole 500 mg q. 8 hours, and Protonix, and IV fluids D5W with 150 mg sodium bicarbonate at 80 mL per hour. HIS VITAL SIGNS AND PHYSICAL EXAMINATION ARE FOLLOWS: Blood pressure this morning 96/63, pulse 108, respirations 16, and temperature 97.2, saturation 98% . Height 6 feet 1 inch, and weight is 189 pounds. BMI 24.9. HENT AND PHYSICAL EXAMINATION: The patient is a 75-year-old elderly male, well built, well nourished, not in acute distress. HENT: Pupils normal, reactive to light and accommodation. Conjunctivae pink, sclerae anicteric. Tongue is moist. Trachea is midline. LUNGS: Symmetric on both sides. Bilateral breath sounds present. Clear on auscultation. CARDIOVASCULAR SYSTEM: Alva at the 5th intercostal space, midclavicular line. S1 and S2 audible. No murmur or gallop. ABDOMEN: Normal in appearance, soft, tympanic. Mild diffuse tenderness. No guarding, no rigidity, no hepatosplenomegaly. CENTRAL NERVOUS SYSTEM: The patient is alert, awake, oriented x 1-2. EXTREMITIES: No cyanosis, no clubbing, no edema. LABORATORY DATA INCLUDE FOLLOWS: As of 05/13/2016 at 1345 hours: WBC 27.9, hemoglobin 10.4, hematocrit is 35, platelets 512. Repeat CBC as of 05/14/2016: WBC 14, hemoglobin 9, hematocrit 30.1, platelets 373. As of 05/13/2016: Sodium 140, potassium 3.5, chloride 104, CO2 of 18, BUN 28, creatinine 1.7, calcium 10.8, and total bili 1.2. AST 48, ALT 17, alkaline phos of 95, troponin 0.022, and total protein 7.3, albumin is 3.9. As of 05/14/2016: Sodium 137, potassium 5.4, chloride 104, CO2 of 18, BUN 46, creatinine 3.3, and glucose 106, calcium 9.2, total protein 5.2, albumin is 2.6. As of 05/15/2015 at 2020 hours: Sodium 138, potassium 6.2, chloride 104, CO2 of 19, BUN 55, creatinine 4.2, glucose 93, calcium 8.9, phosphorus 5.6. CPK 804. Total bili 1.2. AST 84, ALT 13, and alkaline phos 65, total protein 5.2, albumin is 2.6. As of 05/15/2016 at 4:20 a.m.: Sodium 140, potassium 5.7, chloride 100, CO2 of 18, BUN 65, creatinine 5.1, glucose 90, calcium 8.3, AST 62, ALT 34, alkaline phos 62. Troponin on admission 0.022, and total protein 4.9, albumin is 2.4. Blood culture x 2 negative as of 05/13/2016 x 2, and stool for ova and parasites are negative. OTHER REPORTS: CT of the abdomen and pelvis as of 05/13/2016: Impression: Infectious versus inflammatory pancolitis, irregular. More extensive mural thickening involving the rectosigmoid colon, most likely infectious or inflammatory, and less likely neoplastic in origin. Nonspecific enteritis involving the proximal small intestine. No evidence of bowel obstruction. Chest x-ray as of 05/15/2016: Poor inspiration with low lung volumes, mild crowded bronchovascular markings, and mild bibasilar atelectasis, left greater than the right. A small left-sided effusion cannot be excluded. No evidence of cristofer pulmonary edema. His PT is 11.8, PTT 37.5. In summary, the patient is a 75-year-old elderly male with a history of diverticulosis, hypertension, and myasthenia gravis, was admitted with diarrhea , profuse and nonbloody, with weakness and increased WBC count, and also increased BUN and creatinine, high potassium, and low bicarb. 1. Anuric acute renal failure most likely secondary to acute tubular necrosis, secondary to sepsis. 2. Hyperkalemia secondary to acute renal failure. 3. Metabolic acidosis secondary to acute renal failure. 4. Diarrhea, rule out gastroenteritis, viral versus bacterial, The patient was given D50, insulin, calcium gluconate, IV bicarbonate last night, and also started on IV fluid D5W with sodium bicarbonate 150 mEq at 80 mL per hour. Discussed with the patient's and daughter at bedside regarding the need for hemodialysis, The patient's family agreed for hemodialysis, and signed the consent. Will request interventional radiology for Braxton catheter placement, and will schedule for hemodialysis after the Braxton catheter placement. Case discussed with web support engineer, and . Thank you for allowing me to participate in your patient's care, and also discussed with Dr. Rodríguez, his primary care physician. Thank you for allowing me to participate in your patient's care, Vasudeva R Jonnalagadda MD cc: [id number] TT: 05/15/2016 18:00:41 Confirmation # [id number] Dictation # [id number] SHANNAN
[2016-05-16] MEDS: Cholestyramine 4 gm/Pkt UD PO SCH (08:43)
[2016-05-16] MEDS: Enoxaparin 30 mg Syringe SC SCH (08:45)
--- NOTE | 2016-05-16 08:57 | CP.CCUPN ---
CCU Subjective - Physician Review Events Since Last Encounter (Free Text): 05/16/16 11:37 Pt. seen at bedside resting comfortably with no complaints at this time. Pt. reports abdominal pain has resolved and had no bowel movement today. CCU Objective - Vital Signs / Intake & Output Vital Signs (Last 4 hours): Vital Signs Temp Pulse Resp BP Pulse Ox 05/16/16 08:00 98.6 F 107 H 25 H 104/69 100 05/16/16 06:00 113 H 16 118/87 100 Intake and Output (Last 8hrs): Intake & Output 05/15/16 05/16/16 05/16/16 22:59 06:59 14:59 Intake Total 740 640 160 Output Total 57 20 Balance 683 620 160 Weight 189 lb Intake: IV 640 640 160 Intake, Piggyback 100 Output: Urine 57 20 Urethral (Aviles) 57 20 - Physical Exam Head: Positive for: Atraumatic, Normocephalic Conjunctiva: Positive for: Normal. Negative for: Icteric Mouth: Positive for: Moist Mucous Membranes Neck: Positive for: Trachea Midline, Other (Supple) Respiratory/Chest: Positive for: Rales (bi-basilar), Other (on Venti mask ). Negative for: Clear to Auscultation, Respiratory Distress, Accessory Muscle Use , Retracting, Tachypneic Cardiovascular: Positive for: Regular Rate and Rhythm, Normal S1, S2 Abdomen: Negative for: Tenderness, Distention, Peritoneal Signs, Rebound, Guarding Genitourinary Male: Positive for: Other (Aviles in place draining dark red urine ) Lower Extremity: Positive for: Normal Inspection, NORMAL PULSES Neurological: Positive for: CN II-XII Intact, Speech Normal Skin: Positive for: Warm, Dry Psychiatric: Positive for: Alert, Oriented x 3 - Medications Active Medications: Active Medications Generic Name Dose Route Start Last Admin Trade Name Freq PRN Reason Stop Dose Admin Cholestyramine Resin 4 gm 05/15/16 09:00 05/16/16 08:43 Questran PO Not Given DAILY YOBANI Enoxaparin Sodium 30 mg 05/16/16 09:00 05/16/16 08:45 Lovenox SC 30 mg DAILY YOBANI Administration Protocol Metronidazole 100 mls @ 100 mls/hr 05/14/16 17:00 05/16/16 08:42 Flagyl 500mg/100ml Ns IVPB 100 mls/hr Q8 YOBANI Administration Sodium Bicarbonate 150 meq/ 1,150 mls @ 80 mls/hr 05/14/16 23:15 05/16/16 06:03 Dextrose IV 80 mls/hr .[id number] YOBANI Administration Pantoprazole Sodium 40 mg 05/14/16 09:00 05/16/16 08:43 Protonix Inj IVP 40 mg DAILY YOBANI Administration Pneumococcal Polyvalent Vaccine 0.5 ml 05/16/16 21:00 Pneumovax 23 Vaccine IM 05/16/16 21:01 .ONCE ONE - Patient Studies Lab Studies: Microbiology Studies 05/13/16 17:30 Blood Culture - Preliminary Blood NO GROWTH AFTER 48 HOURS 05/13/16 17:30 Blood Culture - Preliminary Blood NO GROWTH AFTER 48 HOURS Lab Studies 05/16/16 05/15/16 05/15/16 Range/Units 04:30 13:30 12:17 WBC 9.9 (4.8-10.8) K/uL RBC 3.51 L (4.40-5.90) Mil/uL Hgb 7.9 L (12.0-18.0) g/dL Hct 24.5 L (35.0-51.0) % MCV 69.9 L D (80.0-94.0) fl MCH 22.6 L (27.0-31.0) pg MCHC 32.3 L (33.0-37.0) g/dL RDW 18.5 H (11.5-14.5) % Plt Count 205 D (130-400) K/uL PT (9.6-11.2) SECONDS INR (0.92-1.08) APTT (23.3-32.5) SECONDS Sodium 144 (132-148) mmol/l Potassium 4.9 (3.6-5.0) MMOL/L Chloride 104 (98-107) mmol/L Carbon Dioxide 28 (22-30) mmol/L Anion Gap 17 (10-20) BUN 48 H (9-20) mg/dl Creatinine 4.6 H (0.8-1.5) mg/dL Est GFR ( Amer) 15 Est GFR (Non-Af Amer) 13 Random Glucose 86 (75-110) mg/dL Calcium 7.9 L (8.4-10.2) mg/dL Total Bilirubin 0.7 (0.2-1.3) mg/dl AST 46 (17-59) U/L ALT 34 (21-72) U/L Alkaline Phosphatase 160 H D (38-126) U/L Total Protein 4.8 L (6.3-8.2) G/DL Albumin 2.3 L (3.5-5.0) g/dL Globulin 2.5 (2.2-3.9) gm/dL Albumin/Globulin Ratio 0.9 L (1.0-2.1) Procalcitonin (0.19-0.49) NG/ML Urine Osmolality 309 (300-1000) mosm/kg Ur Random Sodium 150 meq/L Ur Random Potassium 8.2 mmol/L Hepatitis A IgM Ab (NEGATIVE) Hep Bs Antigen (NEGATIVE) Hep B Core IgM Ab (NEGATIVE) Hepatitis C Antibody Negative (NEGATIVE) HIV 1&2 Antibody Screen (NEGATIVE) 05/15/16 05/15/16 05/15/16 Range/Units 11:24 11:07 04:20 WBC (4.8-10.8) K/uL RBC (4.40-5.90) Mil/uL Hgb (12.0-18.0) g/dL Hct (35.0-51.0) % MCV (80.0-94.0) fl MCH (27.0-31.0) pg MCHC (33.0-37.0) g/dL RDW (11.5-14.5) % Plt Count (130-400) K/uL PT 11.8 H (9.6-11.2) SECONDS INR 1.13 H (0.92-1.08) APTT 37.5 H (23.3-32.5) SECONDS Sodium (132-148) mmol/l Potassium (3.6-5.0) MMOL/L Chloride (98-107) mmol/L Carbon Dioxide (22-30) mmol/L Anion Gap (10-20) BUN (9-20) mg/dl Creatinine (0.8-1.5) mg/dL Est GFR ( Amer) Est GFR (Non-Af Amer) Random Glucose (75-110) mg/dL Calcium (8.4-10.2) mg/dL Total Bilirubin (0.2-1.3) mg/dl AST (17-59) U/L ALT (21-72) U/L Alkaline Phosphatase (38-126) U/L Total Protein (6.3-8.2) G/DL Albumin (3.5-5.0) g/dL Globulin (2.2-3.9) gm/dL Albumin/Globulin Ratio (1.0-2.1) Procalcitonin (0.19-0.49) NG/ML Urine Osmolality (300-1000) mosm/kg Ur Random Sodium meq/L Ur Random Potassium mmol/L Hepatitis A IgM Ab Negative Negative (NEGATIVE) Hep Bs Antigen Negative Negative (NEGATIVE) Hep B Core IgM Ab Negative Negative (NEGATIVE) Hepatitis C Antibody Negative Negative (NEGATIVE) HIV 1&2 Antibody Screen Negative (NEGATIVE) 05/14/16 Range/Units 16:30 WBC (4.8-10.8) K/uL RBC (4.40-5.90) Mil/uL Hgb (12.0-18.0) g/dL Hct (35.0-51.0) % MCV (80.0-94.0) fl MCH (27.0-31.0) pg MCHC (33.0-37.0) g/dL RDW (11.5-14.5) % Plt Count (130-400) K/uL PT (9.6-11.2) SECONDS INR (0.92-1.08) APTT (23.3-32.5) SECONDS Sodium (132-148) mmol/l Potassium (3.6-5.0) MMOL/L Chloride (98-107) mmol/L Carbon Dioxide (22-30) mmol/L Anion Gap (10-20) BUN (9-20) mg/dl Creatinine (0.8-1.5) mg/dL Est GFR ( Amer) Est GFR (Non-Af Amer) Random Glucose (75-110) mg/dL Calcium (8.4-10.2) mg/dL Total Bilirubin (0.2-1.3) mg/dl AST (17-59) U/L ALT (21-72) U/L Alkaline Phosphatase (38-126) U/L Total Protein (6.3-8.2) G/DL Albumin (3.5-5.0) g/dL Globulin (2.2-3.9) gm/dL Albumin/Globulin Ratio (1.0-2.1) Procalcitonin 173.06 H (0.19-0.49) NG/ML Urine Osmolality (300-1000) mosm/kg Ur Random Sodium meq/L Ur Random Potassium mmol/L Hepatitis A IgM Ab (NEGATIVE) Hep Bs Antigen (NEGATIVE) Hep B Core IgM Ab (NEGATIVE) Hepatitis C Antibody (NEGATIVE) HIV 1&2 Antibody Screen (NEGATIVE) Laboratory Results - last 24 hr 05/14/16 05/15/16 05/15/16 16:30 04:20 11:07 WBC RBC Hgb Hct MCV MCH MCHC RDW Plt Count PT 11.8 H INR 1.13 H APTT 37.5 H Sodium Potassium Chloride Carbon Dioxide Anion Gap BUN Creatinine Est GFR ( Amer) Est GFR (Non-Af Amer) Random Glucose Calcium Total Bilirubin AST ALT Alkaline Phosphatase Total Protein Albumin Globulin Albumin/Globulin Ratio Procalcitonin 173.06 H Urine Osmolality Ur Random Sodium Ur Random Potassium Hepatitis A IgM Ab Negative Hep Bs Antigen Negative Hep B Core IgM Ab Negative Hepatitis C Antibody Negative HIV 1&2 Antibody Screen Negative 05/15/16 05/15/16 05/15/16 11:24 12:17 13:30 WBC RBC Hgb Hct MCV MCH MCHC RDW Plt Count PT INR APTT Sodium Potassium Chloride Carbon Dioxide Anion Gap BUN Creatinine Est GFR ( Amer) Est GFR (Non-Af Amer) Random Glucose Calcium Total Bilirubin AST ALT Alkaline Phosphatase Total Protein Albumin Globulin Albumin/Globulin Ratio Procalcitonin Urine Osmolality 309 Ur Random Sodium 150 Ur Random Potassium 8.2 Hepatitis A IgM Ab Negative Hep Bs Antigen Negative Hep B Core IgM Ab Negative Hepatitis C Antibody Negative Negative HIV 1&2 Antibody Screen 05/16/16 04:30 WBC 9.9 RBC 3.51 L Hgb 7.9 L Hct 24.5 L MCV 69.9 L D MCH 22.6 L MCHC 32.3 L RDW 18.5 H Plt Count 205 D PT INR APTT Sodium 144 Potassium 4.9 Chloride 104 Carbon Dioxide 28 Anion Gap 17 BUN 48 H Creatinine 4.6 H Est GFR ( Amer) 15 Est GFR (Non-Af Amer) 13 Random Glucose 86 Calcium 7.9 L Total Bilirubin 0.7 AST 46 ALT 34 Alkaline Phosphatase 160 H D Total Protein 4.8 L Albumin 2.3 L Globulin 2.5 Albumin/Globulin Ratio 0.9 L Procalcitonin Urine Osmolality Ur Random Sodium Ur Random Potassium Hepatitis A IgM Ab Hep Bs Antigen Hep B Core IgM Ab Hepatitis C Antibody HIV 1&2 Antibody Screen Fingerstick Blood Sugar Results: 114 Review of Systems - Review of Systems Review of Systems: See HPI Critical Care Progress Note - Nutrition Nutrition: Nutrition Category Date Time Status NPO Diet [DIET] Diets 05/14/16 Breakfast Active Assessment/Plan - Assessment and Plan (Free Text) Assessment: 75 yo. male admitted for Pancolitis transferred to ICU after developing worsening renal failure s/p HD yesterday 1- Pancolitis- chararaterized by Diarrhea- Infectious vs Ischemic etiolgoy C-diff negative No BM or diarrhea reported today a-GI Dr Das on consult- Input appreciated b-ID Dr Rodney on consult- Input appreciated c-c/w Flagyl & Cipro d-Zofran PRN e-I.V. fluids- D5 N/S @ 80cc/hr 2-Acute Kidney Injuy/Acute Renal Failure most likely secondary to pre-renal causes a-Dr Allison neurology on consult- Input appreciated b-BUN/CR improved today 48/4.6- Will dialyze patient tomorrow c-Monitor I/O's d-Consider 40mg Lasix IV PRN if fluid overloaded e-Echocardiogram- Pending to evaluate for EF% as a cause of pre-renal OLY 3-Anemia- Hgb 7.9 today a- Will transfuse 1 unit of PRBC today b- Repeat CBC 4- Hyperkalemia- trending down 6.2 > 5.7 a-temporary HD catheter b-Dialysis c-Dr. Dodd on board d-Repeat K+ today is 4.9 down from 5.7 5-Tachycardia/PVC a- Start Metroprolol 25mg PO BID b- Hold other HTN meds due to Hypotension 6- Hx of Myesthenia gravis a-Hold Home meds for now 7- DVT prophylaxis a-Lovenox 30mg sc daily 8-GI prophylaxis a-40mg I.V. protonix 9-Diet a-Start clear liquid diet
[2016-05-16 09:17] LABS: CREATININE, RANDOM URINE 4.9 mg/dL
--- NOTE | 2016-05-16 10:25 | CP.PCM.PN ---
Subjective - Date & Time of Evaluation Date of Evaluation: 05/16/16 Time of Evaluation: 09:00 - Subjective Subjective: less pain no fever all cultures neg thus far cont HD Objective - Vital Signs/Intake and Output Vital Signs (last 24 hours): Temp Pulse Resp BP Pulse Ox 98.6 F 107 H 25 H 104/69 100 05/16/16 08:00 05/16/16 08:00 05/16/16 08:00 05/16/16 08:00 05/16/16 08:00 Intake and Output: 05/16/16 05/16/16 06:59 18:59 Intake Total 960 160 Output Total 27 Balance 933 160 - Medications Medications: Current Medications Cholestyramine Resin (Questran) 4 gm PO DAILY [facility] Last Admin: 05/16/16 08:43 Dose: Not Given Enoxaparin Sodium (Lovenox) 30 mg SC DAILY [facility] PRN Reason: Protocol Last Admin: 05/16/16 08:45 Dose: 30 mg Metronidazole (Flagyl 500mg/100ml Ns) 100 mls @ 100 mls/hr IVPB Q8 [facility] Last Admin: 05/16/16 08:42 Dose: 100 mls/hr Sodium Bicarbonate 150 meq/ (Dextrose) 1,150 mls @ 80 mls/hr IV .[id number] [facility] Last Admin: 05/16/16 06:03 Dose: 80 mls/hr Pantoprazole Sodium (Protonix Inj) 40 mg IVP DAILY [facility] Last Admin: 05/16/16 08:43 Dose: 40 mg Pneumococcal Polyvalent Vaccine (Pneumovax 23 Vaccine) 0.5 ml IM .ONCE ONE Stop: 05/16/16 21:01 - Labs Labs: 05/16/16 04:30 05/16/16 04:30 PT 11.8 SECONDS (9.6-11.2) H 05/15/16 11:07 INR 1.13 (0.92-1.08) H 05/15/16 11:07 APTT 37.5 SECONDS (23.3-32.5) H 05/15/16 11:07 - Constitutional Appears: Non-toxic, Chronically Ill - Head Exam Head Exam: NORMOCEPHALIC - Eye Exam Eye Exam: PERRL. absent: Scleral icterus - ENT Exam ENT Exam: Mucous Membranes Dry - Neck Exam Neck Exam: absent: Lymphadenopathy - Respiratory Exam Respiratory Exam: Decreased Breath Sounds, Clear to Ausculation Bilateral - Cardiovascular Exam Cardiovascular Exam: REGULAR RHYTHM - GI/Abdominal Exam GI & Abdominal Exam: Distended, Soft Assessment and Plan (1) Dehydration Status: Acute (2) Pancolitis Status: Acute (3) Renal insufficiency Status: Acute (4) Hypovolemia dehydration Status: Acute
--- NOTE | 2016-05-16 10:48 | CP.PCM.PN ---
Subjective - Date & Time of Evaluation Date of Evaluation: 05/16/16 Time of Evaluation: 10:47 - Subjective Subjective: pt seen and examined, follow up consult is dictated #[id number] s/p hd yesterday Objective - Vital Signs/Intake and Output Vital Signs (last 24 hours): Temp Pulse Resp BP Pulse Ox 98.6 F 107 H 25 H 104/69 100 05/16/16 08:00 05/16/16 08:00 05/16/16 08:00 05/16/16 08:00 05/16/16 08:00 Intake and Output: 05/16/16 05/16/16 06:59 18:59 Intake Total 960 160 Output Total 27 Balance 933 160 - Medications Medications: Current Medications Cholestyramine Resin (Questran) 4 gm PO DAILY [facility] Last Admin: 05/16/16 08:43 Dose: Not Given Enoxaparin Sodium (Lovenox) 30 mg SC DAILY [facility] PRN Reason: Protocol Last Admin: 05/16/16 08:45 Dose: 30 mg Metronidazole (Flagyl 500mg/100ml Ns) 100 mls @ 100 mls/hr IVPB Q8 [facility] Last Admin: 05/16/16 08:42 Dose: 100 mls/hr Sodium Bicarbonate 150 meq/ (Dextrose) 1,150 mls @ 80 mls/hr IV .[id number] [facility] Last Admin: 05/16/16 06:03 Dose: 80 mls/hr Pantoprazole Sodium (Protonix Inj) 40 mg IVP DAILY [facility] Last Admin: 05/16/16 08:43 Dose: 40 mg Pneumococcal Polyvalent Vaccine (Pneumovax 23 Vaccine) 0.5 ml IM .ONCE ONE Stop: 05/16/16 21:01 - Labs Labs: 05/16/16 04:30 05/16/16 04:30 PT 11.8 SECONDS (9.6-11.2) H 05/15/16 11:07 INR 1.13 (0.92-1.08) H 05/15/16 11:07 APTT 37.5 SECONDS (23.3-32.5) H 05/15/16 11:07
--- NOTE | 2016-05-16 10:54 | PQF GENQUE ---
Dr. Rodríguez, (1) In agreement with the diagnosis of Sepsis versus Sepsis ruled out? (2) If Sepsis is ruled in etiology if known? (3) POA? (Present on Admission) OR: Unable to determine OR: Other explanation of clinical findings 05/15/16: Renal note I draft :Anuric acute renal failure most likely secondary to acute tubular necrosis, secondary to sepsis. 2. Hyperkalemia secondary to acute renal failure. 3. Metabolic acidosis secondary to acute renal failure. 4. Diarrhea, rule out gastroenteritis, viral versus bacterial, . 05/15/16: ID note; Pancolitis -etiology unclear - ATN ; 05/16/16 ID note; All cultures negative so far Pulse 87->90->97->97->93->60->92 B/P:134/74->90/40->106/47-.106/47->153/103->92/55->95/62 05/13 Pulse Oxy low: 90 on 05/15 low:88 nasal cannula->Venturi Mask WBC:27.9->14.0; left shift; Band:9 Lactic Acid: 5.1->3.1->2.1 Procalcitonin:173.06 (Range:0.19-0.49) monitored in ICU, IVF's, IVAB's, IJV HD catheter placement This form is a permanent part of the medical record Clarification of your documentation is requested to better reflect the severity of illness and intensity of treatment of your patient. Indicators present [] Specify: [] [] Specify: [] [] Specify: [] [] Specify: [] Location in the medical record that reflects the above clinical findings: [] Treatment Provided: [] PHYSICIAN'S RESPONSE Based on your medical judgment of the clinical indicators outlined above please clarify the following: [] Practitioner response [] If unable to determine, please check the box, sign and date. Present On Admission (POA) Indicator: [] Present at the time of admission [] Not present at the time of admission [] Clinically Undetermined In responding to this query, please exercise your independent professional judgment. The fact that a question is asked does not imply that any particular answer is desired or expected. Thank you for your clarification on this documentation. If you have any questions please call. * Thank you, Rosetta Cam RN BSN ext. #[phone] MTDD
[2016-05-16] MEDS ORDERED: Metoprolol Succinate 25 mg XL Tab PO SCH (11:00)
[2016-05-16 11:39] LABS: IRON < 10 ug/dL (49-181)
--- NOTE | 2016-05-16 12:13 | CP.PCM.PN ---
<Jennifer Garza - Last Filed: 05/16/16 12:37> Subjective - Date & Time of Evaluation Date of Evaluation: 05/16/16 Time of Evaluation: 07:05 - Subjective Subjective: 75M seen and examined at bedside with attending. Pt says he feels better, but tired. Denies any abdominal pain, SOB, chest pain/ palpitations. Objective - Vital Signs/Intake and Output Vital Signs (last 24 hours): Temp Pulse Resp BP Pulse Ox 37.0 C 108 H 16 110/57 L 100 05/16/16 08:00 05/16/16 10:00 05/16/16 10:00 05/16/16 10:00 05/16/16 10:00 Intake and Output: 05/16/16 05/16/16 06:59 18:59 Intake Total 960 480 Output Total 27 Balance 933 480 - Medications Medications: Current Medications Cholestyramine Resin (Questran) 4 gm PO DAILY [facility] Last Admin: 05/16/16 08:43 Dose: Not Given Enoxaparin Sodium (Lovenox) 30 mg SC DAILY [facility] [place] PRN Reason: Protocol Last Admin: 05/16/16 08:45 Dose: 30 mg Metronidazole (Flagyl 500mg/100ml Ns) 100 mls @ 100 mls/hr IVPB Q8 [facility] [place] Last Admin: 05/16/16 08:42 Dose: 100 mls/hr Dextrose/Sodium Chloride (Dextrose 5%/0.9% Ns 1000 Ml) 1,000 mls @ 80 mls/hr IV .[id number] [facility] [place] Stop: 05/17/16 11:16 Metoprolol Succinate (Toprol Xl) 25 mg PO Q12 [facility] [place] Pantoprazole Sodium (Protonix Inj) 40 mg IVP DAILY [facility] [place] Last Admin: 05/16/16 08:43 Dose: 40 mg Pneumococcal Polyvalent Vaccine (Pneumovax 23 Vaccine) 0.5 ml IM .ONCE ONE Stop: 05/16/16 21:01 - Labs Labs: 05/16/16 04:30 05/16/16 04:30 PT 11.8 SECONDS (9.6-11.2) H 05/15/16 11:07 INR 1.13 (0.92-1.08) H 05/15/16 11:07 APTT 37.5 SECONDS (23.3-32.5) H 05/15/16 11:07 - Constitutional Appears: Non-toxic, No Acute Distress - Head Exam Head Exam: ATRAUMATIC, NORMAL INSPECTION - Eye Exam Eye Exam: EOMI, Normal appearance - ENT Exam ENT Exam: Mucous Membranes Moist (Improved ), Normal Exam - Neck Exam Neck Exam: Full ROM, Normal Inspection - Respiratory Exam Respiratory Exam: Clear to Ausculation Bilateral, NORMAL BREATHING PATTERN ( Although has venturi mask in place). absent: Rales, Wheezes - Cardiovascular Exam Cardiovascular Exam: Tachycardia, REGULAR RHYTHM (with PVCs). absent: JVD, Rubs , Murmur (appreciated) - GI/Abdominal Exam GI & Abdominal Exam: Soft. absent: Guarding, Tenderness - Extremities Exam Extremities Exam: Full ROM, Normal Capillary Refill. absent: Pedal Edema - Neurological Exam Neurological Exam: Alert, Awake, Oriented x3 - Psychiatric Exam Psychiatric exam: Normal Affect, Normal Mood - Skin Skin Exam: Dry, Pallor, Warm Assessment and Plan - Assessment and Plan (Free Text) Assessment: 75M admitted for development of overwhelming watery diarrhea with OLY and hypovolemia. Stool studies thus far are negative. HD for no volume simply ultrafiltration. Will obtain echo prior to continuing to aggressively hydrate. Plan: - Nephrology (Dr Allison) Consult appreciated: BUN/Cr improving, possible rpt HD, Echo prior to continued IV hydration - ID (Dr Rodney) Consult appreciated: Will follow, cultures negative thus far ( crypto, entamoeba, norovirus- pending) - GI (Dr Das) Consult appreciated - Anemia (Iron deficiency): T&S, PRBCs, Replace iron, f/u stool occult blood - Rpt CBC, CMP, Procalcitonin - Echocardiogram - Tachycardia w/ PVCs, Dr Lemos consult <Miguel Rodríguez - Last Filed: 05/21/16 11:20> Objective - Vital Signs/Intake and Output Vital Signs (last 24 hours): Temp Pulse Resp BP Pulse Ox 98.2 F 100 H 20 158/69 H 91 L 05/21/16 07:57 05/21/16 08:32 05/21/16 07:57 05/21/16 08:32 05/21/16 07:57 Intake and Output: 05/21/16 05/21/16 06:59 18:59 Output Total 40 Balance -40 - Medications Medications: Current Medications Cholestyramine Resin (Questran) 4 gm PO DAILY [facility] Last Admin: 05/21/16 08:32 Dose: 4 gm Doxercalciferol (Hectorol) 2 mcg IV MWF [facility] [place] Last Admin: 05/19/16 08:59 Dose: 2 mcg Epoetin Claudio (Procrit) 20,000 unit SC MWF [facility] [place] Ferrous Sulfate (Feosol) 325 mg PO DAILY [facility] [place] Metronidazole (Flagyl 500mg/100ml Ns) 100 mls @ 100 mls/hr IVPB Q8 [facility] [place] Last Admin: 05/21/16 10:25 Dose: 100 mls/hr Iron Sucrose 100 mg/ Sodium (Chloride) 105 mls @ 105 mls/hr IVPB DAILY [facility] [place] Stop: 05/27/16 12:46 Last Admin: 05/20/16 12:58 Dose: 105 mls/hr Sodium Chloride (Sodium Chloride 0.45%) 1,000 mls @ 70 mls/hr IV .[id number] [facility] [place] Stop: 05/22/16 11:46 Last Admin: 05/21/16 08:33 Dose: 70 mls/hr Metoprolol Tartrate (Lopressor) 25 mg PO Q12 [facility] [place] Last Admin: 05/21/16 08:32 Dose: 25 mg Pantoprazole Sodium (Protonix Ec Tab) 40 mg PO DAILY [facility] [place] Last Admin: 05/21/16 08:32 Dose: 40 mg Vitamin B Complex/Vit C/Folic Acid (Nephro-Leisa) 1 tab PO DAILY [facility] [place] Last Admin: 05/21/16 08:32 Dose: 1 tab - Labs Labs: 05/21/16 06:30 05/21/16 09:30 PT 11.8 SECONDS (9.6-11.2) H 05/15/16 11:07 INR 1.13 (0.92-1.08) H 05/15/16 11:07 APTT 37.5 SECONDS (23.3-32.5) H 05/15/16 11:07 Assessment and Plan (1) Hypovolemia dehydration Status: Acute (2) Pancolitis Status: Acute (3) Acute renal failure Status: Acute (4) Gastroenteritis and colitis, viral Status: Acute (5) Toxic colitis Status: Acute (6) Toxic dilatation of colon Assessment & Plan: I was present during evaluation and personally examined patient. Discussed with Dr Garza re plan of care and tx. Miguel Rodríguez M.D. Status: Acute
[2016-05-16] MEDS: Dextrose 5%/0.9% NS 1,000 ML IV SCH (17:27)
--- NOTE | 2016-05-16 20:13 | CARD ---
APPROVED REPORT EKG Measurement Heart [id number] <Conclusion> Sinus tachycardia with frequent and consecutive premature ventricular complexes Abnormal ECG
[2016-05-16] MEDS ORDERED: Pneumococcal 23-Valent Vaccine IM ONE (21:00)
--- NOTE | 2016-05-16 22:39 | PN ---
DATE: 05/16/2016 REQUESTING PHYSICIAN: Dr. Miguel Rodríguez. REASON FOR RENAL CONSULTATION: Acute renal failure, oliguria, and for continuation of hemodialysis. The patient is a 75-year-old elderly male with a history of hypertension, myasthenia gravis, who was admitted with the chief complaints of weakness and feeling dizzy, light-headed, and hypotension, with severe diarrhea a few hours prior to the admission; mostly watery diarrhea, profuse. The patient developed acute renal failure requiring initiation of the hemodialysis. The patient underwent hemodialysis yesterday without any complications. The patient is feeling slightly better, not in acute distress. Still, urine output is very, very minimal. No chest pain, no palpitation, no nausea, no vomiting, no abdominal pain today. VITAL SIGNS AND PHYSICAL EXAMINATION: As follows: Blood pressure this morning 104/69, pulse 107, respirations 25, temperature 98.6, saturation 100%. Height 6 feet 1 inch, and weight is 189 pounds. HENT AND PHYSICAL EXAMINATION: The patient is a 75-year-old elderly male, moderately built, moderately nourished, not in acute distress. HENT: Pupils normal, react to light and accommodation. Conjunctivae pink, sclerae anicteric. Tongue is moist. Trachea is midline. LUNGS: Symmetric on both sides. Bilateral breath sounds present, but occasional basal crackles present. CARDIOVASCULAR SYSTEM: [place] is at 5th intercostal space midclavicular line. S1 , S2 audible. Occasionally irregular. No murmur, no gallop. ABDOMEN: Normal in appearance. Soft, tympanic. No guarding, no rigidity, no hepatosplenomegaly. CENTRAL NERVOUS SYSTEM: The patient is alert, awake, oriented x 2. Cranial nerves II-XII grossly intact. Sensory and motor system is within normal limits. EXTREMITIES: No cyanosis, no clubbing, no edema. CURRENT MEDICATIONS: Include as follows: IV fluids D5 normal saline at 80 mL per hour, and Flagyl 500 mg q. 8 hours, and Lopressor 25 mg p.o. q. 12 hours, Lovenox 30 mg subQ daily, Protonix 40 mg IV daily, and Questran 4 g p.o. daily. LABORATORY DATA: Include as follows as of 05/16/2016: WBC 9.9, hemoglobin 7.9 , hematocrit is 24. platelets 205, and MCV is 69.9. Sodium 144, potassium is 4.9, chloride 104, CO2 of 20, BUN 48, and creatinine 4.6, and glucose 86, calcium 7.9. Total bili 0.7, AST 46, ALT 34, alkaline phos of 160, total protein 4.8, albumin is 2.3, and hepatitis C antibody IgM is negative, hep B surface antigen is negative. Core antibody IgM negative, hep C antibody negative. HIV antibody screening negative as of 05/16/2016. Iron is less than 10, TIBC 218, and ferritin is 24, iron saturation is 5. OTHER LABORATORY DATA: Blood culture x 2 negative day 3, and stool culture is negative, and stool for ova and parasites negative. His I's and O's in the last 24 hours as follows as of 05/16/2016: Intake is 2200 and output is 77 mL. In summary, the patient is a 75-year-old elderly male with a history of hypertension, myasthenia gravis, mild dementia, who was admitted with severe diarrhea, hypotension, and dehydration, and weakness and wobbly, and developed acute renal failure requiring initiation of hemodialysis with a low H and H. 1. Oliguric acute renal failure, most likely secondary to acute tubular necrosis , secondary to hypotension and sepsis. 2. Anemia secondary to iron deficiency anemia. Rule out gastrointestinal loss. 3. Diarrhea, which is improving. Rule out viral gastroenteritis versus toxin- induced diarrhea. Case discussed with fund accountant, and would advise to DC the sodium bicarb drip and start IV fluids of D5 half-normal saline at 80-100 mL per hour, and consider to transfuse 1 unit of packed RBC for a period of 3-4 hours, and iron supplement depending on iron saturation. For saturation less than 5% would recommend IV iron, Venofer 100 mg daily x 10 doses. Case discussed with fund accountant, and also ICU resident in rounds. Thank you for allowing me to participate in your patient's care, and also discussed with the patient's family at bedside. Will schedule for hemodialysis in a.m. Kwaku Allison MD cc: [id number] TT: 05/16/2016 22:39:31 Confirmation # [id number] Dictation # [id number] MTDD
[2016-05-17] MEDS: metroNIDAZOLE 500mg/100ml NS 100 ML IVPB SCH ×3 (00:10→16:00)
[2016-05-17 05:12] LABS: BASO % 0.2 % (0.0-2.0); EOS # 0.1 K/uL (0.0-0.7); EOS % 0.9 % (0.0-4.0); HEMATOCRIT 26.7 % (35.0-51.0); LYMPH # 0.5 K/uL (1.0-4.3); LYMPH % 4.2 % (20.0-40.0); MEAN CORPUSCULAR HEMOGLOBIN 22.4 pg (27.0-31.0); MEAN CORPUSCULAR HGB CONC 31.5 g/dL (33.0-37.0); MEAN PLATELET VOLUME 7.8 fl (7.2-11.7); MONO # 0.6 K/uL (0.0-0.8); MONO % 5.1 % (0.0-10.0); NEUT # 10.5 K/uL (1.8-7.0); NEUT % 89.6 % (50.0-75.0); PLATELET COUNT 173 K/uL (130-400); WHITE BLOOD COUNT 11.7 K/uL (4.8-10.8)
[2016-05-17 05:22] LABS: BILIRUBIN,TOTAL 0.6 mg/dl (0.2-1.3); CALCIUM 7.8 mg/dL (8.4-10.2); TOTAL PROTEIN 4.6 G/DL (6.3-8.2)
[2016-05-17 05:26] LABS: POTASSIUM 5.2 MMOL/L (3.6-5.0)
--- NOTE | 2016-05-17 05:35 | CP.PCM.CON ---
History of Present Illness - History of Present Illness History of Present Illness: I was asked to see patient by Dr. Rodríguez. Patient is a 75 year old male with PMH HTN who presented initally with severe vomiting and diarrhea. The patietn was clinically dehydrated and admitted for further management. He developed progressive renal failure and ultimately required dialysis. The patient has developed abdominal pain and found to have a pnacolitis. WBC is elevated. The pateitn was transferred to ICU. He was found to have multiple PVCs. He denies chest pain or dyspnea. Multiple family members (, children) are at the bedside. Review of Systems - Constitutional Constitutional: absent: As Per HPI, Anorexia, Chills, Daytime Sleepiness, Excessive Sweating, Fatigue, Fever, Frequent Falls, Headache, Increased Appetite , Lethargy, Malaise, Night Sweats, Snoring, Sleep Apnea, Weight Gain, Weight Loss, Weakness, Other - EENT Eyes: absent: As Per HPI, Blind Spots, Blurred Vision, Change in Vision, Decreased Night Vision, Diplopia, Discharge, Dry Eye, Exophthalmos, Floaters, Irritation, Itchy Eyes, Loss of Peripheral Vision, Pain, Photophobia, Requires Corrective Lenses, Sees Flashes, Spots in Vision, Tunnel Vision, Other Visual Disturbances, Loss of Vision, Other Ears: absent: As Per HPI, Decreased Hearing, Ear Discharge, Ear Pain, Tinnitus, Abnormal Hearing, Disequilibrium, Dizziness, Other Nose/Mouth/Throat: absent: As Per HPI, Epistaxis, Nasal Congestion, Nasal Discharge, Nasal Obstruction, Nasal Trauma, Nose Pain, Post Nasal Drip, Sinus Pain, Sinus Pressure, Bleeding Gums, Change in Voice, Dental Pain, Dry Mouth, Dysphagia, Halitosis, Hoarsness, Lip Swelling, Mouth Lesions, Mouth Pain, Odynophagia, Sore Throat, Throat Swelling, Tongue Swelling, Facial Pain, Neck Pain, Neck Mass, Other - Cardiovascular Cardiovascular: absent: As Per HPI, Acrocyanosis, Chest Pain, Chest Pain at Rest , Chest Pain with Activity, Claudication, Diaphoresis, Dyspnea, Dyspnea on Exertion, Edema, Irregular Heart Rhythm, Pain Radiating to Arm/Neck/Jaw, Leg Edema, Leg Ulcers, Lightheadedness, Orthopnea, Palpitations, Paroxysmal Nocturnal Dyspnea, Pedal Edema, Radiating Pain, Rapid Heart Rate, Slow Heart Rate, Syncope, Other - Respiratory Respiratory: absent: As Per HPI, Cough, Dyspnea, Hemoptysis, Dyspnea on Exertion , Wheezing, Snoring, Stridor, Pain on Inspiration, Chest Congestion, Excessive Mucous Production, Change in Mucous Color, Pain with Coughing, Other - Gastrointestinal Gastrointestinal: Abdominal Pain, Change in Bowel Habits, Diarrhea, Vomiting - Genitourinary Genitourinary: absent: As Per HPI, Change in Urinary Stream, Difficulty Urinating, Dysuria, Flank Pain, Hematuria, Pyuria, Nocturia, Urinary Incontinence, Urinary Frequency, Urinary Hesitance, Urinary Urgency, Voiding Freq/Small Amts, Freq UTI, Hx Renal/Bladder Calculi, Hx /Renal Surgery, Bladder Distension, Other - Musculoskeletal Musculoskeletal: absent: As Per HPI, Abnormal Gait, Arthralgias, Atrophy, Back Pain, Deformity, Joint Swelling, Limited Range of Motion, Loss of Height, Muscle Cramps, Muscle Weakness, Myalgias, Neck Pain, Numbness, Radiating Pain into Limb, Stiffness, Tingling, Other - Integumentary Integumentary: absent: As Per HPI, Acne, Alopecia, Bleeding Lesions, Change in Hair, Change in Nails, Change in Pigmentation, Changing Lesions, Dry Skin, Erythema, Furuncle, Hirsutism, Lesions, New Lesions, Non-Healing Lesions, Photosensitivity, Pruritus, Rash, Skin Pain, Skin Ulcer, Sores, Striae, Swelling , Unusual Bruising, Wounds, Jaundice, Other - Neurological Neurological: absent: As Per HPI, Abnormal Gait, Abnormal Hearing, Abnormal Movements, Abnormal Speech, Behavioral Changes, Burning Sensations, Confusion, Convulsions, Disequilibrium, Dizziness, Numbness, Focal Weakness, Frequent Falls , Headaches, Lack of Coordination, Loss of Vision, Memory Loss, Paresthesias, Radicular Pain, Restless Legs, Sensory Deficit, Syncope, Tingling, Tremor, Vertigo, Weakness, Other Visual Disturbances, Other - Psychiatric Psychiatric: absent: As Per HPI, Abnormal Sleep Pattern, Anhedonia, Anxiety, Auditory Hallucinations, Behavioral Changes, Change in Appetite, Change in Libido, Confusion, Depression, Difficulty Concentrating, Hallucinations, Homicidal Ideation, Hopelessness, Irritability, Memory Loss, Mood Swings, Panic Attacks, Paranoia, Suicidal Ideation, Visual Hallucinations, Tactile Hallucinations, Other - Endocrine Endocrine: absent: As Per HPI, Change in Body Appearance, Change in Libido, Cold Intolorance, Deepening of Voice, Excessive Sweating, Fatigue, Flushing, Heat Intolorance, Increase in Ring/Shoe/Hat Size, Palpitations, Polydipsia, Polyphagia, Polyuria, Other - Hematologic/Lymphatic Hematologic: absent: As Per HPI, Easy Bleeding, Easy Bruising, Lymphadenopathy, Other Past Patient History - Past Medical History & Family History Past Medical History?: Yes - Past Social History Smoking Status: Never Smoked Chewing Tobacco Use: No Cigar Use: No Alcohol: None Drugs: Denies Home Situation {Lives}: With Family - CARDIAC Hx Cardiac Disorders: Yes Hx Hypercholesterolemia: Yes Hx Hypertension: Yes - PULMONARY Hx Respiratory Disorders: No - NEUROLOGICAL Hx Neurological Disorder: No - HEENT Hx HEENT Problems: Yes Other/Comment: uses eye glasses - RENAL Hx Chronic Kidney Disease: No - ENDOCRINE/METABOLIC Hx Endocrine Disorders: Yes Other/Comment: Hx Myasthenia Gravis - HEMATOLOGICAL/ONCOLOGICAL Hx Blood Disorders: No - INTEGUMENTARY Hx Dermatological Problems: No - MUSCULOSKELETAL/RHEUMATOLOGICAL Hx Musculoskeletal Disorders: No Hx Falls: No - GASTROINTESTINAL Hx Gastrointestinal Disorders: Yes Hx Diverticulitis: Yes Hx Gastritis: Yes - GENITOURINARY/GYNECOLOGICAL Hx Genitourinary Disorders: No - PSYCHIATRIC Hx Psychophysiologic Disorder: No Hx Substance Use: No - SURGICAL HISTORY Hx Surgeries: No - ANESTHESIA Hx Anesthesia: No Meds Allergies/Adverse Reactions: Allergies Allergy/AdvReac Type Severity Reaction Status Date / Time No Known Allergies Allergy Verified 05/13/16 13:12 - Medications Medications: Current Medications Cholestyramine Resin (Questran) 4 gm PO DAILY [facility] Last Admin: 05/16/16 08:43 Dose: Not Given Doxercalciferol (Hectorol) 2 mcg IV [facility] [place] Enoxaparin Sodium (Lovenox) 30 mg SC DAILY [facility] PRN Reason: Protocol Last Admin: 05/16/16 08:45 Dose: 30 mg Epoetin Claudio (Procrit) 10,000 unit SC MWF [facility] Metronidazole (Flagyl 500mg/100ml Ns) 100 mls @ 100 mls/hr IVPB Q8 [facility] Last Admin: 05/17/16 00:10 Dose: 100 mls/hr Dextrose/Sodium Chloride (Dextrose 5%/0.9% Ns 1000 Ml) 1,000 mls @ 80 mls/hr IV .[id number] [facility] Stop: 05/17/16 11:16 Last Admin: 05/16/16 17:27 Dose: 80 mls/hr Iron Sucrose (Venofer) 100 mg IVP DAILY [facility] Stop: 05/27/16 09:01 Metoprolol Tartrate (Lopressor) 25 mg PO Q12 [facility] Last Admin: 05/16/16 21:23 Dose: 25 mg Ondansetron HCl (Zofran Inj) 4 mg IVP Q6 PRN PRN Reason: Nausea/Vomiting Last Admin: 05/16/16 22:51 Dose: 4 mg Pantoprazole Sodium (Protonix Inj) 40 mg IVP DAILY [facility] Last Admin: 05/16/16 08:43 Dose: 40 mg Physical Exam - Constitutional Appears: Non-toxic - Head Exam Head Exam: NORMAL INSPECTION - Eye Exam Eye Exam: Normal appearance - ENT Exam ENT Exam: Mucous Membranes Moist - Neck Exam Neck exam: Positive for: Full Rom - Respiratory Exam Respiratory Exam: Decreased Breath Sounds - Cardiovascular Exam Cardiovascular Exam: REGULAR RHYTHM Additional comments: premature beats - GI/Abdominal Exam GI & Abdominal Exam: Normal Bowel Sounds - Rectal Exam Rectal Exam: Deferred - Extremities Exam Extremities exam: Positive for: pedal edema - Back Exam Back exam: NORMAL INSPECTION - Neurological Exam Neurological exam: Alert, Oriented x3 - Psychiatric Exam Psychiatric exam: Normal Affect - Skin Skin Exam: Normal Color Results - Vital Signs Recent Vital Signs: Last Vital Signs Temp 98.4 F 05/16/16 23:20 Pulse 86 05/16/16 22:00 Resp 18 05/16/16 22:00 BP 103/49 L 05/16/16 22:00 Pulse Ox 98 05/16/16 22:00 - Labs Result Diagrams: 05/17/16 04:35 05/17/16 04:35 Labs: Laboratory Results - last 24 hr 05/14/16 05/15/16 05/16/16 06:00 13:30 04:30 WBC 9.9 RBC 3.51 L Hgb 7.9 L Hct 24.5 L MCV 69.9 L D MCH 22.6 L MCHC 32.3 L RDW 18.5 H Plt Count 205 D MPV Neut % (Auto) Lymph % (Auto) Dare % (Auto) Eos % (Auto) Baso % (Auto) Neut # Lymph # Dare # Eos # Baso # Sodium 144 Potassium 4.9 Chloride 104 Carbon Dioxide 28 Anion Gap 17 BUN 48 H Creatinine 4.6 H Est GFR ( Amer) 15 Est GFR (Non-Af Amer) 13 Random Glucose 86 Calcium 7.9 L Iron TIBC % Saturation Ferritin Total Bilirubin 0.7 AST 46 ALT 34 Alkaline Phosphatase 160 H D Total Protein 4.8 L Albumin 2.3 L Globulin 2.5 Albumin/Globulin Ratio 0.9 L Ur Random Creatinine 4.9 C. difficile Ag & Toxin Negative Blood Type Blood Type Confirm Antibody Screen Crossmatch BBK History Checked 05/16/16 05/16/16 05/16/16 11:04 11:47 12:33 WBC RBC Hgb Hct MCV MCH MCHC RDW Plt Count MPV Neut % (Auto) Lymph % (Auto) Dare % (Auto) Eos % (Auto) Baso % (Auto) Neut # Lymph # Dare # Eos # Baso # Sodium Potassium Chloride Carbon Dioxide Anion Gap BUN Creatinine Est GFR ( Amer) Est GFR (Non-Af Amer) Random Glucose Calcium Iron < 10 L TIBC 218 L % Saturation 5 L Ferritin 24.6 Total Bilirubin AST ALT Alkaline Phosphatase Total Protein Albumin Globulin Albumin/Globulin Ratio Ur Random Creatinine C. difficile Ag & Toxin Blood Type O POSITIVE Blood Type Confirm O POSITIVE Antibody Screen Negative Crossmatch See Detail BBK History Checked No verified bt 05/17/16 04:35 WBC 11.7 H RBC 3.76 L Hgb 8.4 L Hct 26.7 L MCV 71.0 L MCH 22.4 L MCHC 31.5 L RDW 18.0 H Plt Count 173 MPV 7.8 Neut % (Auto) 89.6 H Lymph % (Auto) 4.2 L Dare % (Auto) 5.1 Eos % (Auto) 0.9 Baso % (Auto) 0.2 Neut # 10.5 H Lymph # 0.5 L Dare # 0.6 Eos # 0.1 Baso # 0.0 Sodium 144 Potassium 5.2 H Chloride 103 Carbon Dioxide 29 Anion Gap 17 BUN 65 H Creatinine 6.2 H Est GFR ( Amer) 11 Est GFR (Non-Af Amer) 9 Random Glucose 117 H Calcium 7.8 L Iron TIBC % Saturation Ferritin Total Bilirubin 0.6 AST 39 ALT 32 Alkaline Phosphatase 344 H D Total Protein 4.6 L Albumin 2.3 L Globulin 2.4 Albumin/Globulin Ratio 1.0 Ur Random Creatinine C. difficile Ag & Toxin Blood Type Blood Type Confirm Antibody Screen Crossmatch BBK History Checked - EKG Data EKG Interpreted by: Myself Assessment & Plan (1) Premature ventricular complex Assessment and Plan: unclear etiology. may be due to metobolic abnormalities due to dehydration and renal failure. Suggest echocardiogram to assess LV function. will need betablocker. Status: Acute (2) HTN (hypertension) Assessment and Plan: beta cathryn. NO KONG inhibitor/ARB given renal failure. Status: Acute (3) Acute renal failure Assessment and Plan: dialysis Status: Acute - Date & Time Date: 05/16/16 Time: 18:00
[2016-05-17] MEDS: Dextrose 5%/0.9% NS 1,000 ML IV SCH (06:15)
[2016-05-17 06:22] LABS: EOSINOPHIL 2 % (0-7); NEUTROPHIL 89 % (42-75); TOTAL CELLS COUNTED 100
--- NOTE | 2016-05-17 08:45 | CP.CCUPN ---
<Chintan Hammond - Last Filed: 05/17/16 15:26> CCU Subjective - Physician Review Events Since Last Encounter (Free Text): 05/17/16 15:28 Pt. seen at bedside in NAD tolerating clear liquid diet, no events overnight, not in any pain. No BM yet able to pass gas. CCU Objective - Vital Signs / Intake & Output Vital Signs (Last 4 hours): Vital Signs Temp Pulse Resp BP Pulse Ox 05/17/16 08:00 98 F 90 10 L 139/70 91 L 05/17/16 06:00 86 24 112/56 L 95 Intake and Output (Last 8hrs): Intake & Output 05/16/16 05/17/16 05/17/16 22:59 06:59 14:59 Intake Total 860 640 Output Total 50 100 Balance 810 540 Intake: IV 640 640 Intake, Piggyback 100 Oral 120 Output: Urine 50 100 Urethral (Aviles) 50 100 Other: # Bowel Movements 1 - Physical Exam Head: Positive for: Atraumatic, Normocephalic Pupils: Positive for: PERRL Conjunctiva: Positive for: Normal. Negative for: Icteric Mouth: Positive for: Moist Mucous Membranes Neck: Positive for: Trachea Midline, Other (Supple) Respiratory/Chest: Positive for: Rales (scattered bi-basilar), Other (on nasal canula). Negative for: Clear to Auscultation, Respiratory Distress, Accessory Muscle Use, Retracting, Tachypneic Cardiovascular: Positive for: Regular Rate and Rhythm, Normal S1, S2 Abdomen: Negative for: Tenderness, Distention, Peritoneal Signs, Rebound, Guarding Genitourinary Male: Positive for: Other (Aviles in place draining prateek urine) Lower Extremity: Positive for: Normal Inspection, NORMAL PULSES Neurological: Positive for: CN II-XII Intact, Speech Normal Skin: Positive for: Warm, Dry Psychiatric: Positive for: Alert, Oriented x 3 - Medications Active Medications: Active Medications Generic Name Dose Route Start Last Admin Trade Name Freq PRN Reason Stop Dose Admin Cholestyramine Resin 4 gm 05/15/16 09:00 05/16/16 08:43 Questran PO Not Given DAILY [facility] Doxercalciferol 2 mcg 05/17/16 09:00 Hectorol IV MWF [facility] Enoxaparin Sodium 30 mg 05/16/16 09:00 05/16/16 08:45 Lovenox SC 30 mg DAILY [facility] Administration Protocol Epoetin Claudio 10,000 unit 05/17/16 09:00 Procrit SC MWF [facility] Metronidazole 100 mls @ 100 mls/hr 05/14/16 17:00 05/17/16 00:10 Flagyl 500mg/100ml Ns IVPB 100 mls/hr Q8 [facility] Administration Dextrose/Sodium Chloride 1,000 mls @ 80 mls/hr 05/16/16 11:15 05/17/16 06:15 Dextrose 5%/0.9% Ns 1000 Ml IV 05/17/16 11:16 80 mls/hr .[id number] [facility] Administration Iron Sucrose 100 mg 05/17/16 09:00 Venofer IVP 05/27/16 09:01 DAILY [facility] Metoprolol Tartrate 25 mg 05/16/16 21:00 05/16/16 21:23 Lopressor PO 25 mg Q12 [facility] Administration Ondansetron HCl 4 mg 05/16/16 22:42 05/16/16 22:51 Zofran Inj IVP 4 mg Q6 PRN Administration Nausea/Vomiting Pantoprazole Sodium 40 mg 05/14/16 09:00 05/16/16 08:43 Protonix Inj IVP 40 mg DAILY [facility] Administration - Patient Studies Lab Studies: Microbiology Studies 05/15/16 07:02 MRSA Culture (Admit) - Final Naris MRSA NOT DETECTED 05/13/16 17:30 Blood Culture - Preliminary Blood NO GROWTH AFTER 3 DAYS 05/13/16 17:30 Blood Culture - Preliminary Blood NO GROWTH AFTER 3 DAYS 05/13/16 19:55 Stool Culture - Final Stool NO SALMONELLA, SHIGELLA OR CAMPYLOBACTER ISOLATED. Lab Studies 05/17/16 05/16/16 05/16/16 Range/Units 04:35 12:33 11:47 WBC 11.7 H (4.8-10.8) K/uL RBC 3.76 L (4.40-5.90) Mil/uL Hgb 8.4 L (12.0-18.0) g/dL Hct 26.7 L (35.0-51.0) % MCV 71.0 L (80.0-94.0) fl MCH 22.4 L (27.0-31.0) pg MCHC 31.5 L (33.0-37.0) g/dL RDW 18.0 H (11.5-14.5) % Plt Count 173 (130-400) K/uL MPV 7.8 (7.2-11.7) fl Neut % (Auto) 89.6 H (50.0-75.0) % Lymph % (Auto) 4.2 L (20.0-40.0) % Gates % (Auto) 5.1 (0.0-10.0) % Eos % (Auto) 0.9 (0.0-4.0) % Baso % (Auto) 0.2 (0.0-2.0) % Neut # 10.5 H (1.8-7.0) K/uL Lymph # 0.5 L (1.0-4.3) K/uL Gates # 0.6 (0.0-0.8) K/uL Eos # 0.1 (0.0-0.7) K/uL Baso # 0.0 (0.0-0.2) K/uL Neutrophils % (Manual) 89 H (42-75) % Band Neutrophils % 2 (0-2) % Lymphocytes % (Manual) 5 L (20-50) % Monocytes % (Manual) 2 (0-10) % Eosinophils % (Manual) 2 (0-7) % Toxic Granulation Present Platelet Estimate Normal (NORMAL) Anisocytosis (manual) Slight Chris Cells Slight Sodium 144 (132-148) mmol/l Potassium 5.2 H (3.6-5.0) MMOL/L Chloride 103 (98-107) mmol/L Carbon Dioxide 29 (22-30) mmol/L Anion Gap 17 (10-20) BUN 65 H (9-20) mg/dl Creatinine 6.2 H (0.8-1.5) mg/dL Est GFR ( Amer) 11 Est GFR (Non-Af Amer) 9 Random Glucose 117 H (75-110) mg/dL Calcium 7.8 L (8.4-10.2) mg/dL Iron (49-181) ug/dL TIBC (250-450) ug/dL % Saturation (20-55) % Ferritin ng/mL Total Bilirubin 0.6 (0.2-1.3) mg/dl AST 39 (17-59) U/L ALT 32 (21-72) U/L Alkaline Phosphatase 344 H D (38-126) U/L Total Protein 4.6 L (6.3-8.2) G/DL Albumin 2.3 L (3.5-5.0) g/dL Globulin 2.4 (2.2-3.9) gm/dL Albumin/Globulin Ratio 1.0 (1.0-2.1) Ur Random Creatinine mg/dL C. difficile Ag & Toxin (NEGATIVE) Blood Type O POSITIVE Blood Type Confirm O POSITIVE Antibody Screen Negative Crossmatch See Detail BBK History Checked No verified bt 05/16/16 05/15/16 05/14/16 Range/Units 11:04 13:30 06:00 WBC (4.8-10.8) K/uL RBC (4.40-5.90) Mil/uL Hgb (12.0-18.0) g/dL Hct (35.0-51.0) % MCV (80.0-94.0) fl MCH (27.0-31.0) pg MCHC (33.0-37.0) g/dL RDW (11.5-14.5) % Plt Count (130-400) K/uL MPV (7.2-11.7) fl Neut % (Auto) (50.0-75.0) % Lymph % (Auto) (20.0-40.0) % Gates % (Auto) (0.0-10.0) % Eos % (Auto) (0.0-4.0) % Baso % (Auto) (0.0-2.0) % Neut # (1.8-7.0) K/uL Lymph # (1.0-4.3) K/uL Gates # (0.0-0.8) K/uL Eos # (0.0-0.7) K/uL Baso # (0.0-0.2) K/uL Neutrophils % (Manual) (42-75) % Band Neutrophils % (0-2) % Lymphocytes % (Manual) (20-50) % Monocytes % (Manual) (0-10) % Eosinophils % (Manual) (0-7) % Toxic Granulation Platelet Estimate (NORMAL) Anisocytosis (manual) [place] Cells Sodium (132-148) mmol/l Potassium (3.6-5.0) MMOL/L Chloride (98-107) mmol/L Carbon Dioxide (22-30) mmol/L Anion Gap (10-20) BUN (9-20) mg/dl Creatinine (0.8-1.5) mg/dL Est GFR ( Amer) Est GFR (Non-Af Amer) Random Glucose (75-110) mg/dL Calcium (8.4-10.2) mg/dL Iron < 10 L (49-181) ug/dL TIBC 218 L (250-450) ug/dL % Saturation 5 L (20-55) % Ferritin 24.6 ng/mL Total Bilirubin (0.2-1.3) mg/dl AST (17-59) U/L ALT (21-72) U/L Alkaline Phosphatase (38-126) U/L Total Protein (6.3-8.2) G/DL Albumin (3.5-5.0) g/dL Globulin (2.2-3.9) gm/dL Albumin/Globulin Ratio (1.0-2.1) Ur Random Creatinine 4.9 mg/dL C. difficile Ag & Toxin Negative (NEGATIVE) Blood Type Blood Type Confirm Antibody Screen Crossmatch BBK History Checked Laboratory Results - last 24 hr 05/14/16 05/15/16 05/16/16 06:00 13:30 11:04 WBC RBC Hgb Hct MCV MCH MCHC RDW Plt Count MPV Neut % (Auto) Lymph % (Auto) Gates % (Auto) Eos % (Auto) Baso % (Auto) Neut # Lymph # Gates # Eos # Baso # Neutrophils % (Manual) Band Neutrophils % Lymphocytes % (Manual) Monocytes % (Manual) Eosinophils % (Manual) Toxic Granulation Platelet Estimate Anisocytosis (manual) Chris Cells Sodium Potassium Chloride Carbon Dioxide Anion Gap BUN Creatinine Est GFR ( Amer) Est GFR (Non-Af Amer) Random Glucose Calcium Iron < 10 L TIBC 218 L % Saturation 5 L Ferritin 24.6 Total Bilirubin AST ALT Alkaline Phosphatase Total Protein Albumin Globulin Albumin/Globulin Ratio Ur Random Creatinine 4.9 C. difficile Ag & Toxin Negative Blood Type Blood Type Confirm Antibody Screen Crossmatch BBK History Checked 05/16/16 05/16/16 05/17/16 11:47 12:33 04:35 WBC 11.7 H RBC 3.76 L Hgb 8.4 L Hct 26.7 L MCV 71.0 L MCH 22.4 L MCHC 31.5 L RDW 18.0 H Plt Count 173 MPV 7.8 Neut % (Auto) 89.6 H Lymph % (Auto) 4.2 L Gates % (Auto) 5.1 Eos % (Auto) 0.9 Baso % (Auto) 0.2 Neut # 10.5 H Lymph # 0.5 L Gates # 0.6 Eos # 0.1 Baso # 0.0 Neutrophils % (Manual) 89 H Band Neutrophils % 2 Lymphocytes % (Manual) 5 L Monocytes % (Manual) 2 Eosinophils % (Manual) 2 Toxic Granulation Present Platelet Estimate Normal Anisocytosis (manual) Slight Chris Cells Slight Sodium 144 Potassium 5.2 H Chloride 103 Carbon Dioxide 29 Anion Gap 17 BUN 65 H Creatinine 6.2 H Est GFR ( Amer) 11 Est GFR (Non-Af Amer) 9 Random Glucose 117 H Calcium 7.8 L Iron TIBC % Saturation Ferritin Total Bilirubin 0.6 AST 39 ALT 32 Alkaline Phosphatase 344 H D Total Protein 4.6 L Albumin 2.3 L Globulin 2.4 Albumin/Globulin Ratio 1.0 Ur Random Creatinine C. difficile Ag & Toxin Blood Type O POSITIVE Blood Type Confirm O POSITIVE Antibody Screen Negative Crossmatch See Detail BBK History Checked No verified bt Fingerstick Blood Sugar Results: 114 Review of Systems - Review of Systems Review of Systems: See HPI Critical Care Progress Note - Nutrition Nutrition: Nutrition Category Date Time Status Liquid Diet [DIET] Diets 05/16/16 Breakfast Active Assessment/Plan - Assessment and Plan (Free Text) Assessment: 75 yo. male admitted for Pancolitis transferred to ICU after developing worsening renal failure scheduled for HD today 1- Pancolitis- chararaterized by Diarrhea- Consider Infectious vs Ischemic etiolgoy C-diff negative No BM or diarrhea reported today a-GI Dr Das on consult- Input appreciated b-ID Dr Rodney on consult- Input appreciated c-c/w Flagyl & Cipro d-Zofran PRN e-I.V. fluids- D5 N/S @ 80cc/hr 2-Acute Kidney Injuy/Acute Renal Failure most likely secondary to pre-renal causes vs. Post renal causes Improving 125cc of urine output past 24hrs a-Dr Jonnalagadda neurology on consult- Input appreciated b-BUN/CR improved today 38/3.7- c-Monitor I/O's- 125cc urine output past 24hrs d-Consider 40mg Lasix IV PRN if fluid overloaded e-Echocardiogram- Pending to evaluate for EF% as a cause of pre-renal OLY unable to obtain due to tachycardia f-U/S abdomen to evaluate for post-renal causes of OLY 3-Anemia- Hgb 8.4 s/p 1 unit PRBC a- FOBT- Positive- Consider Colonoscopy when OLY resolves b- Repeat CBC c- c/w procrit d- c/w venofer 4-Elevated Alk-Phos- 160 > 344 a- U/S abdomen b- GGT c- Hepatitis panel 5- Hyperkalemia- trending down 6.2 > 5.7 > 5.2 > 3.6 a-temporary HD catheter b-Dialysis c-Dr. Dodd on board 6-Tachycardia/PVC- Improving heart rate in the 90' a- Continue Metroprolol 25mg PO BID b- Hold other HTN meds due to Hypotension and OLY 7- Hx of Myesthenia gravis a-Hold Home meds for now b-Pt. requires dialysis, meds are not suitable during HD 8- DVT prophylaxis a-Lovenox 30mg sc daily 9-GI prophylaxis a-40mg I.V. protonix 10-Diet a-Advance diet to full liquid <Edmar Blake - Last Filed: 05/17/16 17:06> CCU Subjective - Physician Review Subjective (Free Text): Attestation: Patient seen and examined at the bedside with Resident Dr. Catarino Hammond; and I agree with his outline of plans and management documented below as discussed on AM rounds reflecting my review of all applicable clinical data, and participation in the care of the patient throughout the day in ICU; today, May 17, 2016. Overall improved status since admission 4 days ago, but now has elevated Alk Phos and GGT, expect this is more than an elevation from just simple sepsis and cholestasis. Ultrasound Abd study ordered to include kidneys as well. CTAP findings noted and no mention noted of any GB, Liver abnormalities. Questionable findings of colitis due to normal variant?? versus true inflamm or infectious colitis.
[2016-05-17] MEDS ORDERED: Iron Sucrose 100 mg/5 ml Inj IVP SCH (09:00)
[2016-05-17] MEDS: Enoxaparin 30 mg Syringe SC SCH (09:35)
[2016-05-17] MEDS: Cholestyramine 4 gm/Pkt UD PO SCH (09:35)
[2016-05-17] MEDS: EPOETIN ALFA 10,000 UNIT/ML ML SC SCH (11:51)
[2016-05-17] MEDS: Doxercalciferol 4 mcg/2 ml Inj IV SCH (11:52)
--- NOTE | 2016-05-17 11:56 | VASCULAR ---
PROCEDURE: Date of procedure: 05/15/2016 Procedure: Placement of a non tunneled hemodialysis catheter, CPT 23112 Medications: 6cc 1 percent lidocaine Radiation: .45 mGy Fluoro time: 3.7 seconda Images saved: 2 HISTORY: Acute renal failure TECHNIQUE: Following informed consent, the patient's right neck was prepped and draped in the usual sterile fashion. Ultrasound showed a patent and compressible right internal jugular vein. After the skin was anesthetized with 1% lidocaine, the internal jugular vein was accessed under direct ultrasound guidance with micropuncture technique and a guidewire was advanced under fluorospocic guidance into the SVC. The venotomy was then dilated to accommodate a non tunneled 15 hemodialysis catheter. An image documenting ultrasound guidance for vascular access was permanently saved. The catheter was tested and has adequate blood return for hemodialysis. The catheter was flushed and loaded with heparin per specified amounts. The catheter was secured to patient's skin. A dressing was applied. Post procedure chest x-ray showed a hemodialysis catheter at the caval atrial junction. IMPRESSION: Placement of a non tunneled 15 centimeter hemodialysis catheter via the right internal jugular vein. The tip of the catheter was confirmed with a postoperative chest x-ray and is at the superior vena cava-cavoatrial junction. The catheter is functional ready for use.
--- NOTE | 2016-05-17 12:50 | CP.PCM.PN ---
Subjective - Date & Time of Evaluation Date of Evaluation: 05/17/16 Time of Evaluation: 12:49 - Subjective Subjective: pt seen and examined, follow up consult is dictated #[id number] seen in hd, uf goal is about 1.5 lit, as tolerated Objective - Vital Signs/Intake and Output Vital Signs (last 24 hours): Temp Pulse Resp BP Pulse Ox 98 F 74 17 125/53 L 100 05/17/16 08:00 05/17/16 10:00 05/17/16 10:00 05/17/16 10:00 05/17/16 10:00 Intake and Output: 05/17/16 05/17/16 06:59 18:59 Intake Total 1080 940 Output Total 120 Balance 960 940 - Medications Medications: Current Medications Chlorpromazine (Thorazine) 25 mg PO Q8 [facility] Stop: 05/20/16 00:05 Cholestyramine Resin (Questran) 4 gm PO DAILY [facility] Last Admin: 05/17/16 09:35 Dose: 4 gm Doxercalciferol (Hectorol) 2 mcg IV MWF [facility] Last Admin: 05/17/16 11:52 Dose: 2 mcg Enoxaparin Sodium (Lovenox) 30 mg SC DAILY [facility] PRN Reason: Protocol Last Admin: 05/17/16 09:35 Dose: 30 mg Epoetin Claudio (Procrit) 10,000 unit SC MWF [facility] Last Admin: 05/17/16 11:51 Dose: 10,000 unit Metronidazole (Flagyl 500mg/100ml Ns) 100 mls @ 100 mls/hr IVPB Q8 [facility] Last Admin: 05/17/16 09:35 Dose: 100 mls/hr Iron Sucrose 100 mg/ Sodium (Chloride) 105 mls @ 105 mls/hr IVPB DAILY [facility] Stop: 05/27/16 12:46 Metoprolol Tartrate (Lopressor) 25 mg PO Q12 [facility] Last Admin: 05/17/16 12:39 Dose: Not Given Ondansetron HCl (Zofran Inj) 4 mg IVP Q6 PRN PRN Reason: Nausea/Vomiting Last Admin: 05/16/16 22:51 Dose: 4 mg Pantoprazole Sodium (Protonix Inj) 40 mg IVP DAILY [facility] Last Admin: 05/17/16 09:35 Dose: 40 mg - Labs Labs: 05/17/16 04:35 05/17/16 04:35 PT 11.8 SECONDS (9.6-11.2) H 05/15/16 11:07 INR 1.13 (0.92-1.08) H 05/15/16 11:07 APTT 37.5 SECONDS (23.3-32.5) H 05/15/16 11:07
--- NOTE | 2016-05-17 13:58 | CP.PCM.PN ---
Subjective - Date & Time of Evaluation Date of Evaluation: 05/17/16 Time of Evaluation: 08:00 - Subjective Subjective: 75 year old male with PMH HTN who presented initally with severe vomiting and diarrhea. The patietn was clinically dehydrated and admitted for further management. He developed progressive renal failure and ultimately required dialysis. The patient has developed abdominal pain and found to have pancolitis All cultures and serologies are negative No nephrotoxic agents found No evidence of E Coli [address] Gomez on board Ischemic colitis is entertained but diagnostics limited at present will need full GI work up eventually Objective - Vital Signs/Intake and Output Vital Signs (last 24 hours): Temp Pulse Resp BP Pulse Ox 98.2 F 92 H 12 105/56 L 99 05/17/16 12:00 05/17/16 12:00 05/17/16 12:00 05/17/16 12:00 05/17/16 12:00 Intake and Output: 05/17/16 05/17/16 06:59 18:59 Intake Total 1080 1660 Output Total 120 Balance 960 1660 - Medications Medications: Current Medications Chlorpromazine (Thorazine) 25 mg PO Q8 [facility] Stop: 05/20/16 00:05 Cholestyramine Resin (Questran) 4 gm PO DAILY [facility] Last Admin: 05/17/16 09:35 Dose: 4 gm Doxercalciferol (Hectorol) 2 mcg IV MWF [facility] Last Admin: 05/17/16 11:52 Dose: 2 mcg Enoxaparin Sodium (Lovenox) 30 mg SC DAILY [facility] PRN Reason: Protocol Last Admin: 05/17/16 09:35 Dose: 30 mg Epoetin Claudio (Procrit) 10,000 unit SC MWF [facility] Last Admin: 05/17/16 11:51 Dose: 10,000 unit Metronidazole (Flagyl 500mg/100ml Ns) 100 mls @ 100 mls/hr IVPB Q8 [facility] Last Admin: 05/17/16 09:35 Dose: 100 mls/hr Iron Sucrose 100 mg/ Sodium (Chloride) 105 mls @ 105 mls/hr IVPB DAILY [facility] Stop: 05/27/16 12:46 Metoprolol Tartrate (Lopressor) 25 mg PO Q12 [facility] Last Admin: 05/17/16 12:39 Dose: Not Given Ondansetron HCl (Zofran Inj) 4 mg IVP Q6 PRN PRN Reason: Nausea/Vomiting Last Admin: 05/16/16 22:51 Dose: 4 mg Pantoprazole Sodium (Protonix Inj) 40 mg IVP DAILY [facility] Last Admin: 05/17/16 09:35 Dose: 40 mg - Labs Labs: 05/17/16 04:35 05/17/16 04:35 PT 11.8 SECONDS (9.6-11.2) H 05/15/16 11:07 INR 1.13 (0.92-1.08) H 05/15/16 11:07 APTT 37.5 SECONDS (23.3-32.5) H 05/15/16 11:07 - Constitutional Appears: Non-toxic, Chronically Ill - Head Exam Head Exam: NORMOCEPHALIC - Eye Exam Eye Exam: PERRL. absent: Scleral icterus - ENT Exam ENT Exam: Mucous Membranes Dry - Neck Exam Neck Exam: absent: Lymphadenopathy - Respiratory Exam Respiratory Exam: Decreased Breath Sounds, Clear to Ausculation Bilateral - Cardiovascular Exam Cardiovascular Exam: REGULAR RHYTHM, +S1, +S2 - GI/Abdominal Exam GI & Abdominal Exam: Distended, Soft. absent: Tenderness - Rectal Exam Rectal Exam: Deferred - Exam Exam: NORMAL INSPECTION - Extremities Exam Extremities Exam: absent: Pedal Edema - Back Exam Back Exam: absent: CVA tenderness (L), CVA tenderness (R) - Neurological Exam Neurological Exam: Alert, Awake, Oriented x3 - Psychiatric Exam Psychiatric exam: Normal Mood - Skin Skin Exam: Dry Assessment and Plan (1) Dehydration Status: Acute (2) Pancolitis Status: Acute (3) Renal insufficiency Status: Acute (4) Hypovolemia dehydration Status: Acute
[2016-05-17 14:20] LABS: CALCIUM 7.3 mg/dL (8.4-10.2); POTASSIUM 3.6 MMOL/L (3.6-5.0)
--- NOTE | 2016-05-17 15:19 | CP.PCM.PN ---
<Jennifer Garza - Last Filed: 05/17/16 18:18> Subjective - Date & Time of Evaluation Date of Evaluation: 05/17/16 Time of Evaluation: 06:45 - Subjective Subjective: 75M seen and examined at bedside with attending. Pt reports feeling "much better". He denies SOB, chest pain, abdominal pain this morning. Objective - Vital Signs/Intake and Output Vital Signs (last 24 hours): Temp Pulse Resp BP Pulse Ox 36.8 C 92 H 12 105/56 L 99 05/17/16 12:00 05/17/16 12:00 05/17/16 12:00 05/17/16 12:00 05/17/16 12:00 Intake and Output: 05/17/16 05/17/16 06:59 18:59 Intake Total 1080 1660 Output Total 120 Balance 960 1660 - Medications Medications: Current Medications Chlorpromazine (Thorazine) 25 mg PO Q8 [facility] Stop: 05/20/16 00:05 Cholestyramine Resin (Questran) 4 gm PO DAILY [facility] Last Admin: 05/17/16 09:35 Dose: 4 gm Doxercalciferol (Hectorol) 2 mcg IV MWF [facility] Last Admin: 05/17/16 11:52 Dose: 2 mcg Enoxaparin Sodium (Lovenox) 30 mg SC DAILY [facility] PRN Reason: Protocol Last Admin: 05/17/16 09:35 Dose: 30 mg Epoetin Claudio (Procrit) 10,000 unit SC MWF [facility] Last Admin: 05/17/16 11:51 Dose: 10,000 unit Metronidazole (Flagyl 500mg/100ml Ns) 100 mls @ 100 mls/hr IVPB Q8 [facility] Last Admin: 05/17/16 09:35 Dose: 100 mls/hr Iron Sucrose 100 mg/ Sodium (Chloride) 105 mls @ 105 mls/hr IVPB DAILY [facility] Stop: 05/27/16 12:46 Metoprolol Tartrate (Lopressor) 25 mg PO Q12 [facility] Last Admin: 05/17/16 12:39 Dose: Not Given Ondansetron HCl (Zofran Inj) 4 mg IVP Q6 PRN PRN Reason: Nausea/Vomiting Last Admin: 05/16/16 22:51 Dose: 4 mg Pantoprazole Sodium (Protonix Inj) 40 mg IVP DAILY [facility] Last Admin: 05/17/16 09:35 Dose: 40 mg - Labs Labs: 05/17/16 04:35 05/17/16 12:33 PT 11.8 SECONDS (9.6-11.2) H 05/15/16 11:07 INR 1.13 (0.92-1.08) H 05/15/16 11:07 APTT 37.5 SECONDS (23.3-32.5) H 05/15/16 11:07 - Constitutional Appears: Well, No Acute Distress - Head Exam Head Exam: ATRAUMATIC, NORMAL INSPECTION - Eye Exam Eye Exam: EOMI, Normal appearance - ENT Exam ENT Exam: Mucous Membranes Moist, Normal Exam - Neck Exam Neck Exam: Full ROM, Normal Inspection - Respiratory Exam Respiratory Exam: Clear to Ausculation Bilateral, NORMAL BREATHING PATTERN. absent: Rales - Cardiovascular Exam Cardiovascular Exam: REGULAR RHYTHM. absent: JVD, Murmur - GI/Abdominal Exam GI & Abdominal Exam: Soft, Normal Bowel Sounds. absent: Tenderness - Extremities Exam Extremities Exam: Full ROM, Normal Capillary Refill, Pedal Edema (2+ b/l ankles) - Neurological Exam Neurological Exam: Alert, Oriented x3 - Psychiatric Exam Psychiatric exam: Normal Affect, Normal Mood - Skin Skin Exam: Intact, Warm Assessment and Plan - Assessment and Plan (Free Text) Assessment: 75M continues to improve clinically as well as improving objective thresholds. Heart rate and rhythm have improved with equilibration of metabolic factors. Although patient has iron deficiency anemia likely impacted by renal injury as well as finding of fecal occult blood positivity. Etiology of colitis unclear at this time, may want to consider a small imbalance that was then exacerbated by the medication pyridostigmine. UO increasing and official read of echo is pending. Stable for transfer at discretion of ICU. Plan: Nephrology (Dr Allison) Consult appreciated: Will undergo HD and remove volume, Venofer, Procrit - ID (Dr Rodney) Consult appreciated: Will follow, cultures negative thus far ( crypto, entamoeba, norovirus- pending) - GI (Dr Das) Consult appreciated - Anemia (Iron deficiency): Transfused PRBC x1, suboptimal response - Rpt CBC, CMP, Procalcitonin - Echocardiogram- PENDING - Dr Lemos (cardiology) consult: c/w lopressor, hold ACEI - PT/OT <Miguel Rodríguez L - Last Filed: 05/21/16 11:21> Objective - Vital Signs/Intake and Output Vital Signs (last 24 hours): Temp Pulse Resp BP Pulse Ox 98.2 F 100 H 20 158/69 H 91 L 05/21/16 07:57 05/21/16 08:32 05/21/16 07:57 05/21/16 08:32 05/21/16 07:57 Intake and Output: 05/21/16 05/21/16 06:59 18:59 Output Total 40 Balance -40 - Medications Medications: Current Medications Cholestyramine Resin (Questran) 4 gm PO DAILY [facility] Last Admin: 05/21/16 08:32 Dose: 4 gm Doxercalciferol (Hectorol) 2 mcg IV MWF [facility] Last Admin: 05/19/16 08:59 Dose: 2 mcg Epoetin Claudio (Procrit) 20,000 unit SC MWF [facility] Ferrous Sulfate (Feosol) 325 mg PO DAILY [facility] Metronidazole (Flagyl 500mg/100ml Ns) 100 mls @ 100 mls/hr IVPB Q8 [facility] Last Admin: 05/21/16 10:25 Dose: 100 mls/hr Iron Sucrose 100 mg/ Sodium (Chloride) 105 mls @ 105 mls/hr IVPB DAILY [facility] Stop: 05/27/16 12:46 Last Admin: 05/20/16 12:58 Dose: 105 mls/hr Sodium Chloride (Sodium Chloride 0.45%) 1,000 mls @ 70 mls/hr IV .[id number] [facility] Stop: 05/22/16 11:46 Last Admin: 05/21/16 08:33 Dose: 70 mls/hr Metoprolol Tartrate (Lopressor) 25 mg PO Q12 [facility] Last Admin: 05/21/16 08:32 Dose: 25 mg Pantoprazole Sodium (Protonix Ec Tab) 40 mg PO DAILY [facility] Last Admin: 05/21/16 08:32 Dose: 40 mg Vitamin B Complex/Vit C/Folic Acid (Nephro-Leisa) 1 tab PO DAILY [facility] Last Admin: 05/21/16 08:32 Dose: 1 tab - Labs Labs: 05/21/16 06:30 05/21/16 09:30 PT 11.8 SECONDS (9.6-11.2) H 05/15/16 11:07 INR 1.13 (0.92-1.08) H 05/15/16 11:07 APTT 37.5 SECONDS (23.3-32.5) H 05/15/16 11:07 Assessment and Plan (1) Hypovolemia dehydration Status: Acute (2) Pancolitis Status: Acute (3) Acute renal failure Status: Acute (4) Gastroenteritis and colitis, viral Status: Acute (5) Toxic colitis Status: Acute (6) Toxic dilatation of colon Status: Acute - Assessment and Plan (Free Text) Plan: I personally examined patient and discussed with Dr Kayla lieberman plans of care and treatment. Miguel Rodríguez M.D.
--- NOTE | 2016-05-17 19:27 | CP.PCM.PN ---
Subjective - Date & Time of Evaluation Date of Evaluation: 05/17/16 Time of Evaluation: 19:20 - Subjective Subjective: patient has no complaints. s/p dialysis today. family is at the bedside. Objective - Vital Signs/Intake and Output Vital Signs (last 24 hours): Temp Pulse Resp BP Pulse Ox 97.9 F 105 H 10 L 112/51 L 95 05/17/16 16:00 05/17/16 18:00 05/17/16 18:00 05/17/16 18:00 05/17/16 18:00 Intake and Output: 05/17/16 05/18/16 18:59 06:59 Intake Total 1980 Output Total 1725 Balance 255 - Medications Medications: Current Medications Chlorpromazine (Thorazine) 25 mg PO Q8 [facility] Stop: 05/20/16 00:05 Last Admin: 05/17/16 16:11 Dose: 25 mg Cholestyramine Resin (Questran) 4 gm PO DAILY [facility] Last Admin: 05/17/16 09:35 Dose: 4 gm Doxercalciferol (Hectorol) 2 mcg IV MWF [facility] Last Admin: 05/17/16 11:52 Dose: 2 mcg Epoetin Claudio (Procrit) 10,000 unit SC MWF [facility] Last Admin: 05/17/16 11:51 Dose: 10,000 unit Metronidazole (Flagyl 500mg/100ml Ns) 100 mls @ 100 mls/hr IVPB Q8 [facility] Last Admin: 05/17/16 16:00 Dose: 100 mls/hr Iron Sucrose 100 mg/ Sodium (Chloride) 105 mls @ 105 mls/hr IVPB DAILY [facility] Stop: 05/27/16 12:46 Last Admin: 05/17/16 15:57 Dose: 105 mls/hr Metoprolol Tartrate (Lopressor) 25 mg PO Q12 [facility] Last Admin: 05/17/16 12:39 Dose: Not Given Ondansetron HCl (Zofran Inj) 4 mg IVP Q6 PRN PRN Reason: Nausea/Vomiting Last Admin: 05/16/16 22:51 Dose: 4 mg Pantoprazole Sodium (Protonix Inj) 40 mg IVP DAILY [facility] Last Admin: 05/17/16 09:35 Dose: 40 mg - Labs Labs: 05/17/16 04:35 05/17/16 12:33 PT 11.8 SECONDS (9.6-11.2) H 05/15/16 11:07 INR 1.13 (0.92-1.08) H 05/15/16 11:07 APTT 37.5 SECONDS (23.3-32.5) H 05/15/16 11:07 - Constitutional Appears: Non-toxic - Head Exam Head Exam: NORMAL INSPECTION - Eye Exam Eye Exam: Normal appearance - ENT Exam ENT Exam: Mucous Membranes Moist - Neck Exam Neck Exam: Full ROM - Respiratory Exam Respiratory Exam: Decreased Breath Sounds - Cardiovascular Exam Cardiovascular Exam: REGULAR RHYTHM - GI/Abdominal Exam GI & Abdominal Exam: Normal Bowel Sounds - Rectal Exam Rectal Exam: Deferred - Extremities Exam Extremities Exam: absent: Pedal Edema - Back Exam Back Exam: NORMAL INSPECTION - Neurological Exam Neurological Exam: Alert - Psychiatric Exam Psychiatric exam: Normal Affect - Skin Skin Exam: Normal Color Assessment and Plan (1) Premature ventricular complex Assessment & Plan: I reviewed the echocardiogram. left ventricular function is normal. There is no regional wall motion abnormality. correct electrolytes Status: Acute (2) HTN (hypertension) Assessment & Plan: blood pressure controlled with metoprolol. Status: Acute (3) Acute renal failure Status: Acute
--- NOTE | 2016-05-17 19:32 | CARD ---
APPROVED REPORT EXAM: Two-dimensional and M-mode echocardiogram with Doppler and color Doppler. Other Information Quality : GoodRhythm : PVC's INDICATION LV Function:SystolicDiastolic 2D DIMENSIONS IVSd2.11 (0.7-1.1cm)LVDd4.59 (3.9-5.9cm) LVOT Diameter2.53 (1.8-2.4cm)PWd1.14 (0.7-1.1cm) IVSs1.72 (0.8-1.2cm)LVDs2.60 (2.5-4.0cm) FS (%) 43.4 %PWs1.83 (0.8-1.2cm) LVEF (%)60.0 (>50%) M-Mode DIMENSIONS Left Atrium (MM)4.72 (2.5-4.0cm)IVSd0.77 (0.7-1.1cm) Aortic Root3.70 (2.2-3.7cm)LVDd5.80 (4.0-5.6cm) Aortic Cusp Exc.2.65 (1.5-2.0cm)PWd0.94 (0.7-1.1cm) IVSs1.92 cmFS (%) 49 % LVDs2.97 (2.0-3.8cm)PWs1.54 cm Mitral Valve E/A ratio0.0 TDI E/Lateral E'0.0E/Medial E'0.0 Tricuspid Valve TR Peak [id number] [id number] Peak Gr.26mmHg [id number] LEFT VENTRICLE The left ventricle is normal size. There is normal left ventricular wall thickness. The left ventricular function is normal. The left ventricular ejection fraction is within the normal range. There is normal LV segmental wall motion. Transmitral Doppler flow pattern is Grade I-abnormal relaxation pattern. RIGHT VENTRICLE The right ventricle is mildly dilated. There is normal right ventricular wall thickness. The right ventricular systolic function is normal. ATRIA The left atrium is mildly dilated. The right atrium is borderline dilated. AORTIC VALVE The aortic valve is not well visualized. No aortic regurgitation is present. There is no aortic valvular stenosis. MITRAL VALVE The mitral valve is mildly thickened. There is no mitral valve stenosis. Mitral regurgitation is mild to moderate. TRICUSPID VALVE The tricuspid valve is normal in structure There is moderate tricuspid regurgitation. There is mild pulmonary hypertension. PULMONIC VALVE The pulmonary valve is normal in structure and function. There is no pulmonic valvular regurgitation. GREAT VESSELS The aortic root is normal in size. The IVC is normal in size and collapses >50% with inspiration. PERICARDIAL EFFUSION The pericardium appears normal. <Conclusion> The left ventricle is normal size. There is normal left ventricular wall thickness. The left ventricular function is normal. The left ventricular ejection fraction is within the normal range. There is normal LV segmental wall motion. Transmitral Doppler flow pattern is Grade I-abnormal relaxation pattern. Mitral regurgitation is mild to moderate. There is moderate tricuspid regurgitation. There is mild pulmonary hypertension.
--- NOTE | 2016-05-17 22:42 | PN ---
DATE: 05/17/2016 The patient is located in ICU, room 425, bed 1. Requested by Dr. Miguel Rodríguez. REASON FOR RENAL CONSULTATION: Acute renal failure, diarrhea, and anemia, for continuation of the hemodialysis. The patient is about 75-year-old elderly male with a history of hypertension, mild dementia, and myasthenia gravis, who was admitted with severe , profuse diarrhea, watery, and associated with nausea and weakness, feeling dizzy, light-headed, and acute renal failure. Renal function deteriorated since admission. Creatinine 1.72, more than 5 with anuric, and requiring initiation of the hemodialysis. The patient still complains of occasional hiccups. No chest pain, no palpitation, no fever, no cough, no abdominal pain. Started on clear liquids today. The patient is seen and examined during hemodialysis. UF goal is about 1.5 L. His vital signs are as follows: Blood pressure 125/53, pulse 74, respiration 17 , temperature 98.2. Height 6 feet 1 inch and weight is 189 pounds. HENT AND PHYSICAL EXAMINATION: The patient is a 75-year-old elderly male, moderately built, moderately nourished, not in acute distress. HENT: Pupils normal, reactive to light and accommodation. Conjunctivae pink, sclerae anicteric. Tongue is moist. Trachea midline. LUNGS: Symmetric on both sides. Bilateral breath sounds present. Occasional basal crackles present. CARDIOVASCULAR SYSTEM: [place] at the 5th intercostal space midclavicular line. S1 and S2 audible. No murmur or gallop. ABDOMEN: Normal in appearance, soft, tympanic. No guarding, no rigidity, no hepatosplenomegaly. CENTRAL NERVOUS SYSTEM: The patient is alert, awake, oriented x 2-3. Sensory and motor system is within normal limits. Cranial nerves II-XII grossly intact. EXTREMITIES: No cyanosis, no clubbing, no edema. CURRENT MEDICATIONS: Include as follows: Flagyl 500 mg q. 8 hours, Hectorol 2 mcg 3 times a week with urinalysis. Venofer 100 mg daily, and Lopressor 25 mg p.o. q. 12 hours, Epogen 10,000 units subQ 3 times a week, and Protonix 40 mg IV daily, and Questran 4 g p.o. daily, and Thorazine 25 mg p.o. q. 8 hours, and Zofran 4 mg IV q. 6 hours p.r.n. His current laboratory data includes as follows as of 05/17/2016: WBC 11.7, hemoglobin 8.4, hematocrit is 26.7, platelets 173, and neutrophils 89, monocytes, 2 eosinophils 2. Sodium 144, potassium 5.2, chloride 103, CO2 of 29 , BUN 65, creatinine 6.2, and glucose 117, calcium 7.8, total bilirubin 0.6. AST 39, ALT 32, alkaline phosphatase 344, total protein 4.6, albumin is 2.3. Procalcitonin is 0.66, and stool for occult blood is positive, and hep C antibody is negative. In summary, the patient is about 75-year-old elderly male with a history of hypertension, myasthenia gravis, seen with severe, profuse diarrhea with low blood pressure, and also increased BUN and creatinine on admission, and oliguric, and 24-hour urine volume is 150, and 24 hours intake is 2405 mL, and urine output is 150 mL. 1. Oliguric acute renal failure, most likely secondary to acute tubular necrosis , secondary to hypotension, sepsis, and severe diarrhea. 2. Anemia, most likely secondary to severe iron deficiency anemia. Rule out slow gastrointestinal loss. 3. Status post diarrhea. Rule out viral gastroenteritis versus toxin-induced. Continue Flagyl as per ID. Continue to monitor BMP daily, and the patient will need to continue hemodialysis until renal function improves. Discussed the patient's condition to the patient's at bedside. Will follow with you. Thank you for allowing me to participate in your patient's care. Kwaku Allison MD cc: [id number] TT: 05/17/2016 22:41:54 Confirmation # [id number] Dictation # [id number] MTDD
[2016-05-18] MEDS: metroNIDAZOLE 500mg/100ml NS 100 ML IVPB SCH ×3 (00:57→17:04)
--- NOTE | 2016-05-18 06:10 | CP.PCM.PN ---
<Jennifer Garza - Last Filed: 05/18/16 11:40> Subjective - Date & Time of Evaluation Date of Evaluation: 05/18/16 Time of Evaluation: 06:10 - Subjective Subjective: 75M seen and examined at bedside with attending. Pt continues to feel better and denies SOB, chest pain, abdominal pain this morning. Objective - Vital Signs/Intake and Output Vital Signs (last 24 hours): Temp Pulse Resp BP Pulse Ox 36.9 C 82 12 113/61 98 05/18/16 00:00 05/18/16 04:00 05/18/16 04:00 05/18/16 04:00 05/18/16 04:00 Intake and Output: 05/17/16 05/18/16 18:59 06:59 Intake Total 1980 220 Output Total 1725 Balance 255 220 - Medications Medications: Current Medications Chlorpromazine (Thorazine) 25 mg PO Q8 [facility] Stop: 05/20/16 00:05 Last Admin: 05/18/16 00:57 Dose: 25 mg Cholestyramine Resin (Questran) 4 gm PO DAILY [facility] Last Admin: 05/17/16 09:35 Dose: 4 gm Doxercalciferol (Hectorol) 2 mcg IV MWF [facility] Last Admin: 05/17/16 11:52 Dose: 2 mcg Epoetin Claudio (Procrit) 10,000 unit SC MWF [facility] Last Admin: 05/17/16 11:51 Dose: 10,000 unit Metronidazole (Flagyl 500mg/100ml Ns) 100 mls @ 100 mls/hr IVPB Q8 [facility] Last Admin: 05/18/16 00:57 Dose: 100 mls/hr Iron Sucrose 100 mg/ Sodium (Chloride) 105 mls @ 105 mls/hr IVPB DAILY [facility] Stop: 05/27/16 12:46 Last Admin: 05/17/16 15:57 Dose: 105 mls/hr Metoprolol Tartrate (Lopressor) 25 mg PO Q12 [facility] Last Admin: 05/17/16 21:53 Dose: 25 mg Ondansetron HCl (Zofran Inj) 4 mg IVP Q6 PRN PRN Reason: Nausea/Vomiting Last Admin: 05/16/16 22:51 Dose: 4 mg Pantoprazole Sodium (Protonix Inj) 40 mg IVP DAILY [facility] Last Admin: 05/17/16 09:35 Dose: 40 mg - Labs Labs: 05/17/16 04:35 05/17/16 12:33 PT 11.8 SECONDS (9.6-11.2) H 05/15/16 11:07 INR 1.13 (0.92-1.08) H 05/15/16 11:07 APTT 37.5 SECONDS (23.3-32.5) H 05/15/16 11:07 - Constitutional Appears: Well, Non-toxic, No Acute Distress - Head Exam Head Exam: ATRAUMATIC, NORMAL INSPECTION - Eye Exam Eye Exam: EOMI, Normal appearance - ENT Exam ENT Exam: Mucous Membranes Moist, Normal Exam - Neck Exam Neck Exam: Full ROM, Normal Inspection - Respiratory Exam Respiratory Exam: Clear to Ausculation Bilateral, NORMAL BREATHING PATTERN. absent: Rales, Wheezes - Cardiovascular Exam Cardiovascular Exam: REGULAR RHYTHM (occasional PVCs). absent: JVD - GI/Abdominal Exam GI & Abdominal Exam: Soft, Normal Bowel Sounds. absent: Tenderness - Extremities Exam Extremities Exam: Full ROM, Normal Capillary Refill, Pedal Edema (Trace b/l ankles) - Neurological Exam Neurological Exam: Alert, Awake, Oriented x3 - Psychiatric Exam Psychiatric exam: Normal Affect, Normal Mood - Skin Skin Exam: Dry, Warm Assessment and Plan - Assessment and Plan (Free Text) Assessment: 75M continues to improve clinically as well as improving objective thresholds. Heart rate and rhythm have improved with equilibration of metabolic factors. Iron deficiency anemia improving. Etiology of colitis remains unclear at this time, possibility of a small imbalance magnified by pyridostigmine. UO continues to improve though slight increase BUN/Cr this morning. Stable for transfer to med/surg. Plan: Nephrology (Dr Allison) Consult appreciated: Will undergo HD and remove volume, Venofer, Procrit - ID (Dr Rodney) Consult appreciated: Will follow, cultures negative thus far ( crypto, entamoeba, norovirus- pending) - GI (Dr Das) Consult appreciated - Anemia (Iron deficiency): Improving - Rpt CBC, CMP, Procalcitonin - Echocardiogram- LVfxn/LVEF-wnl, grade I abnml relaxation, MR mild-mod, TR-mod , Mild pulm HTN - Dr Lemos (cardiology) consult: c/w lopressor, hold ACEI - PT/OT - Hiccups: Thorazine - Elevated ALP: abdominal U/S <Miguel Rodríguez L - Last Filed: 05/21/16 11:22> Objective - Vital Signs/Intake and Output Vital Signs (last 24 hours): Temp Pulse Resp BP Pulse Ox 98.2 F 100 H 20 158/69 H 91 L 05/21/16 07:57 05/21/16 08:32 05/21/16 07:57 05/21/16 08:32 05/21/16 07:57 Intake and Output: 05/21/16 05/21/16 06:59 18:59 Output Total 40 Balance -40 - Medications Medications: Current Medications Cholestyramine Resin (Questran) 4 gm PO DAILY [facility] Last Admin: 05/21/16 08:32 Dose: 4 gm Doxercalciferol (Hectorol) 2 mcg IV MWF [facility] Last Admin: 05/19/16 08:59 Dose: 2 mcg Epoetin Claudio (Procrit) 20,000 unit SC MWF [facility] Ferrous Sulfate (Feosol) 325 mg PO DAILY [facility] Metronidazole (Flagyl 500mg/100ml Ns) 100 mls @ 100 mls/hr IVPB Q8 [facility] Last Admin: 05/21/16 10:25 Dose: 100 mls/hr Iron Sucrose 100 mg/ Sodium (Chloride) 105 mls @ 105 mls/hr IVPB DAILY [facility] Stop: 05/27/16 12:46 Last Admin: 05/20/16 12:58 Dose: 105 mls/hr Sodium Chloride (Sodium Chloride 0.45%) 1,000 mls @ 70 mls/hr IV .[id number] [facility] Stop: 05/22/16 11:46 Last Admin: 05/21/16 08:33 Dose: 70 mls/hr Metoprolol Tartrate (Lopressor) 25 mg PO Q12 [facility] Last Admin: 05/21/16 08:32 Dose: 25 mg Pantoprazole Sodium (Protonix Ec Tab) 40 mg PO DAILY [facility] Last Admin: 05/21/16 08:32 Dose: 40 mg Vitamin B Complex/Vit C/Folic Acid (Nephro-Leisa) 1 tab PO DAILY [facility] Last Admin: 05/21/16 08:32 Dose: 1 tab - Labs Labs: 05/21/16 06:30 05/21/16 09:30 PT 11.8 SECONDS (9.6-11.2) H 05/15/16 11:07 INR 1.13 (0.92-1.08) H 05/15/16 11:07 APTT 37.5 SECONDS (23.3-32.5) H 05/15/16 11:07 Assessment and Plan (1) Hypovolemia dehydration Status: Acute (2) Pancolitis Status: Acute (3) Acute renal failure Status: Acute (4) Gastroenteritis and colitis, viral Status: Acute (5) Toxic colitis Status: Acute (6) Toxic dilatation of colon Status: Acute - Assessment and Plan (Free Text) Plan: I personally examined patient and discussed with Dr Kayla lieberman plans of care and management. Miguel Rodríguez M.D.
[2016-05-18 06:19] LABS: BASO % 0.2 % (0.0-2.0); EOS # 0.1 K/uL (0.0-0.7); EOS % 1.2 % (0.0-4.0); HEMATOCRIT 28.7 % (35.0-51.0); LYMPH # 0.6 K/uL (1.0-4.3); LYMPH % 7.1 % (20.0-40.0); MEAN CELL VOLUME 71.3 fl (80.0-94.0); MEAN CORPUSCULAR HEMOGLOBIN 22.3 pg (27.0-31.0); MEAN CORPUSCULAR HGB CONC 31.3 g/dL (33.0-37.0); MEAN PLATELET VOLUME 7.8 fl (7.2-11.7); MONO # 0.6 K/uL (0.0-0.8); MONO % 7.9 % (0.0-10.0); NEUT # 6.7 K/uL (1.8-7.0); NEUT % 83.6 % (50.0-75.0); RED CELL DISTRIBUTION WIDTH 18.5 % (11.5-14.5)
[2016-05-18 06:29] LABS: ALB/GLOB RATIO 0.9 (1.0-2.1); BILIRUBIN,TOTAL 0.6 mg/dl (0.2-1.3); CALCIUM 7.7 mg/dL (8.4-10.2); POTASSIUM 4.3 MMOL/L (3.6-5.0); TOTAL PROTEIN 4.6 G/DL (6.3-8.2)
[2016-05-18] MEDS: Cholestyramine 4 gm/Pkt UD PO SCH (09:20)
[2016-05-18] MEDS: Pantoprazole 40 mg EC Tab PO SCH (10:00)
--- NOTE | 2016-05-18 13:02 | US ---
HISTORY: OLY, elevated alk phos, Pancolitis on CT COMPARISON: CT abdomen and pelvis from 05/13/2016 TECHNIQUE: Grayscale imaging was performed. FINDINGS: LIVER: Measures 17.5 cm. Normal echogenicity of the liver parenchyma. No mass. No intrahepatic bile duct dilatation. GALLBLADDER: Unremarkable. No gallstones. COMMON BILE DUCT: Measures 4.0 mm. No stones. No dilatation. PANCREAS: Unremarkable as visualized. No mass. No ductal dilatation. RIGHT KIDNEY: Measures 12.2cm. Normal echogenicity. No calculus, mass, or hydronephrosis. There is a 1.7 cm cyst in the upper pole. LEFT KIDNEY: Measures 14.6 wakecm. Normal echogenicity. No calculus, mass, or hydronephrosis. There is a 2.5 cm simple cyst in the interpolar region. SPLEEN: Normal in size and contour. No mass. AORTA: No aneurysmal dilatation. IVC: Unremarkable. OTHER FINDINGS: There is small amount of fluid in the Morison's pouch. IMPRESSION: Small amount of fluid in the [place]'s pouch. Solitary simple cysts in each kidney, the larger in the left interpolar region measures 2.5 cm.
--- NOTE | 2016-05-18 16:43 | CP.PCM.PN ---
Subjective - Date & Time of Evaluation Date of Evaluation: 05/18/16 Time of Evaluation: 07:00 - Subjective Subjective: remains afeb all cultures neg thus far cont supportive rx Objective - Vital Signs/Intake and Output Vital Signs (last 24 hours): Temp Pulse Resp BP Pulse Ox 97.9 F 101 H 13 126/54 L 98 05/18/16 08:00 05/18/16 09:18 05/18/16 08:00 05/18/16 09:18 05/18/16 08:00 Intake and Output: 05/18/16 05/18/16 06:59 18:59 Intake Total 224 Output Total 60 Balance 164 - Medications Medications: Current Medications Chlorpromazine (Thorazine) 25 mg PO Q8 [facility] Stop: 05/20/16 00:05 Last Admin: 05/18/16 09:20 Dose: 25 mg Cholestyramine Resin (Questran) 4 gm PO DAILY [facility] Last Admin: 05/18/16 09:20 Dose: 4 gm Doxercalciferol (Hectorol) 2 mcg IV MWF [facility] Last Admin: 05/17/16 11:52 Dose: 2 mcg Epoetin Claudio (Procrit) 10,000 unit SC MWF [facility] Last Admin: 05/17/16 11:51 Dose: 10,000 unit Metronidazole (Flagyl 500mg/100ml Ns) 100 mls @ 100 mls/hr IVPB Q8 [facility] Last Admin: 05/18/16 09:18 Dose: 100 mls/hr Iron Sucrose 100 mg/ Sodium (Chloride) 105 mls @ 105 mls/hr IVPB DAILY [facility] Stop: 05/27/16 12:46 Last Admin: 05/17/16 15:57 Dose: 105 mls/hr Metoprolol Tartrate (Lopressor) 25 mg PO Q12 [facility] Last Admin: 05/18/16 09:18 Dose: 25 mg Pantoprazole Sodium (Protonix Ec Tab) 40 mg PO DAILY [facility] - Labs Labs: 05/18/16 06:00 05/18/16 06:00 PT 11.8 SECONDS (9.6-11.2) H 05/15/16 11:07 INR 1.13 (0.92-1.08) H 05/15/16 11:07 APTT 37.5 SECONDS (23.3-32.5) H 05/15/16 11:07 Assessment and Plan (1) Dehydration Status: Acute (2) Pancolitis Status: Acute (3) Renal insufficiency Status: Acute (4) Hypovolemia dehydration Status: Acute
--- NOTE | 2016-05-18 18:03 | CP.PCM.PN ---
Subjective - Date & Time of Evaluation Date of Evaluation: 05/18/16 Time of Evaluation: 18:03 - Subjective Subjective: pt seen and examined, follow up consult is dictated#[id number] for hd in am, uop is slowly picking up Objective - Vital Signs/Intake and Output Vital Signs (last 24 hours): Temp Pulse Resp BP Pulse Ox 97.6 F 100 H 14 120/57 L 98 05/18/16 16:00 05/18/16 16:00 05/18/16 16:00 05/18/16 16:00 05/18/16 16:00 Intake and Output: 05/18/16 05/18/16 06:59 18:59 Intake Total 224 Output Total 60 Balance 164 - Medications Medications: Current Medications Chlorpromazine (Thorazine) 25 mg PO Q8 [facility] Stop: 05/20/16 00:05 Last Admin: 05/18/16 17:06 Dose: 25 mg Cholestyramine Resin (Questran) 4 gm PO DAILY [facility] Last Admin: 05/18/16 09:20 Dose: 4 gm Doxercalciferol (Hectorol) 2 mcg IV MWF [facility] Last Admin: 05/17/16 11:52 Dose: 2 mcg Epoetin Claudio (Procrit) 10,000 unit SC MWF [facility] Last Admin: 05/17/16 11:51 Dose: 10,000 unit Metronidazole (Flagyl 500mg/100ml Ns) 100 mls @ 100 mls/hr IVPB Q8 [facility] Last Admin: 05/18/16 17:04 Dose: 100 mls/hr Iron Sucrose 100 mg/ Sodium (Chloride) 105 mls @ 105 mls/hr IVPB DAILY [facility] Stop: 05/27/16 12:46 Last Admin: 05/18/16 10:00 Dose: 105 mls/hr Metoprolol Tartrate (Lopressor) 25 mg PO Q12 [facility] Last Admin: 05/18/16 09:18 Dose: 25 mg Pantoprazole Sodium (Protonix Ec Tab) 40 mg PO DAILY [facility] Last Admin: 05/18/16 10:00 Dose: 40 mg - Labs Labs: 05/18/16 06:00 05/18/16 06:00 PT 11.8 SECONDS (9.6-11.2) H 05/15/16 11:07 INR 1.13 (0.92-1.08) H 05/15/16 11:07 APTT 37.5 SECONDS (23.3-32.5) H 05/15/16 11:07
[2016-05-18] MEDS: Sodium Chloride 0.45% 1,000 ML IV SCH (21:18)
--- NOTE | 2016-05-18 23:49 | PN ---
DATE: 05/18/2016 REQUESTED BY: Dr. Miguel Rodríguez REASON FOR RENAL CONSULTATION: Acute renal failure, for continuation of hemodialysis. HISTORY OF PRESENT ILLNESS: The patient is a 75-year-old elderly obese male with a past medical history significant for hypertension, mild dementia, myasthenia gravis, who was admitted with severe profuse diarrhea, dehydration and hypotension and being wobbly. Found to have acute renal failure , metabolic acidosis, and hyperkalemia requiring initiation of the hemodialysis. The patient is feeling much better. No diarrhea today. No chest pain, no palpitations, no fever, no cough, no abdominal pain. The patient 's family at bedside. Urine output is slowly picking up. PHYSICAL EXAMINATION: VITAL SIGNS: As follows: Blood pressure 120/57, pulse 100, respirations 14, temperature 97.6, saturation 98%, height 6 feet 1 inch and weight is 201 pounds and BMI 26.5. GENERAL: The patient is a 75-year-old elderly male, well-built, well- nourished, not in acute distress, resting comfortably. HEENT: Pupils normal, reactive to light and accommodation. Conjunctivae pink. Sclerae anicteric. Tongue is moist. Trachea is midline. LUNGS: Symmetric on both sides. Bilateral breath sounds present. Clear on auscultation. CARDIOVASCULAR: [place] at the fifth intercostal space in midclavicular line. S1 and S2 audible. No murmur or gallop. ABDOMEN: Normal in appearance, soft, tympanic. No guarding, no rigidity. No hepatosplenomegaly. CENTRAL NERVOUS SYSTEM: The patient is arousable, following commands appropriately, oriented x 2-3. Sensory and motor system is within normal limits. Cranial nerves II-XII grossly intact. EXTREMITIES: No cyanosis, no clubbing. The patient has trace edema in both lower extremities. CURRENT MEDICATIONS: Include as follows: Flagyl 500 mg q. 8 hours, Hectorol 2 mcg 3 times a week (Sunday, Sunday and Sunday), iron 100 mcg IV piggyback daily, Lopressor 25 mg p.o. q. 12 hours, Procrit 10,000 units subQ 3 times a week, Protonix 40 mg p.o. daily, Questran 4 g p.o. daily, IV fluids started this evening, half normal saline at 70 mL per hour, hydralazine 25 mg p.o. q. 8 hours. His I's and O's: Intake is now 2204 and urine output is aboutt 1.5 liters. LABORATORY DATA: Include as follows: As of 05/18/2016, WBC 8, hemoglobin 9, hematocrit is 28.7, platelets 143. Sodium 140, potassium 4.3, chloride 103, CO2 of 27, BUN 53, creatinine 5.4. BUN 53, creatinine 5.4, glucose 82, calcium 7.7 and lactic acid 0.7, total bilirubin 0.6 and GGT 207, AST 31, ALT 34, alkaline phosphatase is 326, total protein 4.6, albumin is 2.2. Other reports: MRSA screening was negative and urine culture was negative. Stool culture was negative and stool for ova and parasites were negative. Blood culture x 2 negative on day 5. SUMMARY: The patient is a 75-year-old elderly male with a history of hypertension, myasthenia gravis and mild dementia, who was admitted with severe profuse diarrhea and hypotension and acute renal failure. 1. Oliguric acute renal failure, most likely secondary to acute tubular necrosis secondary to hypotension and sepsis. 2. Status post diarrhea. Rule out viral gastroenteritis versus toxin induced. 3. Anemia, status post transfusion of 1 unit of packed RBC, H and H is stable. Continue IV fluids, half normal saline at 70 mL per hour and BMP and CBC in a.m. We will schedule for hemodialysis in the a.m. Case discussed with patient 's family at bedside. We will follow with you. Thank you for allowing me to participate in your patient's care and after dialysis tomorrow, we will just monitor his BMP daily and we will try to hold hemodialysis. Kwaku Allison MD cc: [id number] TT: 05/18/2016 23:48:48 Confirmation # [id number] Dictation # [id number] MTDD
[2016-05-19] MEDS: metroNIDAZOLE 500mg/100ml NS 100 ML IVPB SCH ×3 (01:20→16:33)
[2016-05-19] MEDS: Doxercalciferol 4 mcg/2 ml Inj IV SCH (08:59)
[2016-05-19] MEDS: EPOETIN ALFA 10,000 UNIT/ML ML SC SCH (09:00)
[2016-05-19] MEDS: Sodium Chloride 0.45% 1,000 ML IV SCH (09:01)
[2016-05-19] MEDS: Cholestyramine 4 gm/Pkt UD PO SCH (12:17)
[2016-05-19] MEDS: Pantoprazole 40 mg EC Tab PO SCH (12:17)
--- NOTE | 2016-05-19 12:57 | CP.PCM.PN ---
Subjective - Date & Time of Evaluation Date of Evaluation: 05/19/16 Time of Evaluation: 12:55 - Subjective Subjective: patient with no current abdominal pain Objective - Vital Signs/Intake and Output Vital Signs (last 24 hours): Temp Pulse Resp BP Pulse Ox 98.4 F 105 H 11 L 103/57 L 100 05/19/16 12:00 05/19/16 12:16 05/19/16 12:00 05/19/16 12:16 05/19/16 12:00 Intake and Output: 05/19/16 05/19/16 06:59 18:59 Intake Total 1140 200 Output Total 360 1500 Balance 780 -1300 - Medications Medications: Current Medications Chlorpromazine (Thorazine) 25 mg PO Q8 [facility] Stop: 05/20/16 00:05 Last Admin: 05/19/16 12:17 Dose: 25 mg Cholestyramine Resin (Questran) 4 gm PO DAILY [facility] Last Admin: 05/19/16 12:17 Dose: 4 gm Doxercalciferol (Hectorol) 2 mcg IV MWF [facility] Last Admin: 05/19/16 08:59 Dose: 2 mcg Epoetin Claudio (Procrit) 10,000 unit SC MWF [facility] Last Admin: 05/19/16 09:00 Dose: 10,000 unit Metronidazole (Flagyl 500mg/100ml Ns) 100 mls @ 100 mls/hr IVPB Q8 [facility] Last Admin: 05/19/16 12:16 Dose: 100 mls/hr Iron Sucrose 100 mg/ Sodium (Chloride) 105 mls @ 105 mls/hr IVPB DAILY [facility] Stop: 05/27/16 12:46 Last Admin: 05/19/16 12:17 Dose: 105 mls/hr Sodium Chloride (Sodium Chloride 0.45%) 1,000 mls @ 70 mls/hr IV .[id number] [facility] Stop: 05/19/16 19:31 Last Admin: 05/19/16 09:01 Dose: 70 mls/hr Metoprolol Tartrate (Lopressor) 25 mg PO Q12 [facility] Last Admin: 05/19/16 12:16 Dose: 25 mg Pantoprazole Sodium (Protonix Ec Tab) 40 mg PO DAILY [facility] Last Admin: 05/19/16 12:17 Dose: 40 mg - Labs Labs: 05/18/16 06:00 05/18/16 06:00 PT 11.8 SECONDS (9.6-11.2) H 05/15/16 11:07 INR 1.13 (0.92-1.08) H 05/15/16 11:07 APTT 37.5 SECONDS (23.3-32.5) H 05/15/16 11:07 - Head Exam Head Exam: ATRAUMATIC - Eye Exam Eye Exam: Normal appearance - ENT Exam ENT Exam: Mucous Membranes Moist - Neck Exam Neck Exam: Normal Inspection - Cardiovascular Exam Cardiovascular Exam: REGULAR RHYTHM - GI/Abdominal Exam GI & Abdominal Exam: Normal Bowel Sounds. absent: Tenderness Assessment and Plan (1) Pancolitis Assessment & Plan: Doing well. Clinically colitis appears to have resolved. Status: Acute
--- NOTE | 2016-05-19 14:05 | CP.PCM.PN ---
Subjective - Date & Time of Evaluation Date of Evaluation: 05/19/16 Time of Evaluation: 07:00 - Subjective Subjective: urine output better no fever or diarrhea cont rx as per renal for ATN Objective - Vital Signs/Intake and Output Vital Signs (last 24 hours): Temp Pulse Resp BP Pulse Ox 98.4 F 105 H 11 L 103/57 L 100 05/19/16 12:00 05/19/16 12:16 05/19/16 12:00 05/19/16 12:16 05/19/16 12:00 Intake and Output: 05/19/16 05/19/16 06:59 18:59 Intake Total 1140 200 Output Total 360 1500 Balance 780 -1300 - Medications Medications: Current Medications Chlorpromazine (Thorazine) 25 mg PO Q8 [facility] Stop: 05/20/16 00:05 Last Admin: 05/19/16 12:17 Dose: 25 mg Cholestyramine Resin (Questran) 4 gm PO DAILY [facility] Last Admin: 05/19/16 12:17 Dose: 4 gm Doxercalciferol (Hectorol) 2 mcg IV MWF [facility] Last Admin: 05/19/16 08:59 Dose: 2 mcg Epoetin Claudio (Procrit) 10,000 unit SC MWF [facility] Last Admin: 05/19/16 09:00 Dose: 10,000 unit Metronidazole (Flagyl 500mg/100ml Ns) 100 mls @ 100 mls/hr IVPB Q8 [facility] Last Admin: 05/19/16 12:16 Dose: 100 mls/hr Iron Sucrose 100 mg/ Sodium (Chloride) 105 mls @ 105 mls/hr IVPB DAILY [facility] Stop: 05/27/16 12:46 Last Admin: 05/19/16 12:17 Dose: 105 mls/hr Sodium Chloride (Sodium Chloride 0.45%) 1,000 mls @ 70 mls/hr IV .[id number] [facility] Stop: 05/19/16 19:31 Last Admin: 05/19/16 09:01 Dose: 70 mls/hr Metoprolol Tartrate (Lopressor) 25 mg PO Q12 [facility] Last Admin: 05/19/16 12:16 Dose: 25 mg Pantoprazole Sodium (Protonix Ec Tab) 40 mg PO DAILY [facility] Last Admin: 05/19/16 12:17 Dose: 40 mg - Labs Labs: 05/18/16 06:00 05/18/16 06:00 PT 11.8 SECONDS (9.6-11.2) H 05/15/16 11:07 INR 1.13 (0.92-1.08) H 05/15/16 11:07 APTT 37.5 SECONDS (23.3-32.5) H 05/15/16 11:07 - Constitutional Appears: Non-toxic, Cachectic, Chronically Ill - Head Exam Head Exam: NORMOCEPHALIC - Eye Exam Eye Exam: absent: Scleral icterus - ENT Exam ENT Exam: Mucous Membranes Dry - Neck Exam Neck Exam: absent: Lymphadenopathy - Respiratory Exam Respiratory Exam: Decreased Breath Sounds, Rhonchi - Cardiovascular Exam Cardiovascular Exam: REGULAR RHYTHM, +S1, +S2 - GI/Abdominal Exam GI & Abdominal Exam: Distended, Soft. absent: Tenderness - Rectal Exam Rectal Exam: Deferred - Exam Exam: NORMAL INSPECTION Assessment and Plan (1) Dehydration Status: Acute (2) Pancolitis Status: Acute (3) Renal insufficiency Status: Acute (4) Hypovolemia dehydration Status: Acute
--- NOTE | 2016-05-19 14:08 | CP.PCM.PN ---
Subjective - Date & Time of Evaluation Date of Evaluation: 05/19/16 Time of Evaluation: 14:07 - Subjective Subjective: pt seen and examined. pt denies any complaints, no sob, no diarrhea s/p hd today, uf 1.5 lit check bmp daily Objective - Vital Signs/Intake and Output Vital Signs (last 24 hours): Temp Pulse Resp BP Pulse Ox 98.4 F 105 H 11 L 103/57 L 100 05/19/16 12:00 05/19/16 12:16 05/19/16 12:00 05/19/16 12:16 05/19/16 12:00 Intake and Output: 05/19/16 05/19/16 06:59 18:59 Intake Total 1140 200 Output Total 360 1500 Balance 780 -1300 - Medications Medications: Current Medications Chlorpromazine (Thorazine) 25 mg PO Q8 [facility] Stop: 05/20/16 00:05 Last Admin: 05/19/16 12:17 Dose: 25 mg Cholestyramine Resin (Questran) 4 gm PO DAILY [facility] Last Admin: 05/19/16 12:17 Dose: 4 gm Doxercalciferol (Hectorol) 2 mcg IV MWF [facility] Last Admin: 05/19/16 08:59 Dose: 2 mcg Epoetin Claudio (Procrit) 10,000 unit SC MWF [facility] Last Admin: 05/19/16 09:00 Dose: 10,000 unit Metronidazole (Flagyl 500mg/100ml Ns) 100 mls @ 100 mls/hr IVPB Q8 [facility] Last Admin: 05/19/16 12:16 Dose: 100 mls/hr Iron Sucrose 100 mg/ Sodium (Chloride) 105 mls @ 105 mls/hr IVPB DAILY [facility] Stop: 05/27/16 12:46 Last Admin: 05/19/16 12:17 Dose: 105 mls/hr Sodium Chloride (Sodium Chloride 0.45%) 1,000 mls @ 70 mls/hr IV .[id number] [facility] Stop: 05/19/16 19:31 Last Admin: 05/19/16 09:01 Dose: 70 mls/hr Metoprolol Tartrate (Lopressor) 25 mg PO Q12 [facility] Last Admin: 05/19/16 12:16 Dose: 25 mg Pantoprazole Sodium (Protonix Ec Tab) 40 mg PO DAILY [facility] Last Admin: 05/19/16 12:17 Dose: 40 mg - Labs Labs: 05/18/16 06:00 05/18/16 06:00 PT 11.8 SECONDS (9.6-11.2) H 05/15/16 11:07 INR 1.13 (0.92-1.08) H 05/15/16 11:07 APTT 37.5 SECONDS (23.3-32.5) H 05/15/16 11:07 - Constitutional Appears: Well, No Acute Distress - Head Exam Head Exam: ATRAUMATIC, NORMAL INSPECTION, NORMOCEPHALIC - Eye Exam Eye Exam: EOMI Pupil Exam: NORMAL ACCOMODATION, PERRL - ENT Exam ENT Exam: Mucous Membranes Dry - Neck Exam Neck Exam: Normal Inspection - Respiratory Exam Respiratory Exam: Clear to Ausculation Bilateral, NORMAL BREATHING PATTERN - GI/Abdominal Exam GI & Abdominal Exam: Soft, Normal Bowel Sounds - Rectal Exam Rectal Exam: Deferred - Neurological Exam Neurological Exam: Alert, Awake, CN II-XII Intact, Oriented x3 - Skin Skin Exam: Normal Color Assessment and Plan - Assessment and Plan (Free Text) Plan: 75 YO male with HTN, mild dementia, mysthenia, was admitted with severe diarrhea , dehydration, hypoteansion, OLY 1. OLY, most likley sec to ATN, sec to sepsis, and severe diarrhea continue hd 3 x aweek, until renal function improves, uop is picking up slowly will evaluate for hd on daily basis 2. HTN, bp is on boderline, encougre po intake continue ivf 1/2 ns at 70 ml/hr 3. s/p Diarrhea, [place] secto viral, r/o txin related check bmp daily
[2016-05-19 15:39] LABS: ALB/GLOB RATIO 0.9 (1.0-2.1); BILIRUBIN,TOTAL 0.6 mg/dl (0.2-1.3); CALCIUM 7.8 mg/dL (8.4-10.2); POTASSIUM 4.3 MMOL/L (3.6-5.0); TOTAL PROTEIN 4.9 G/DL (6.3-8.2)
[2016-05-20] MEDS: metroNIDAZOLE 500mg/100ml NS 100 ML IVPB SCH ×3 (00:22→17:15)
--- NOTE | 2016-05-20 08:36 | CP.PCM.PN ---
Subjective - Date & Time of Evaluation Date of Evaluation: 05/19/16 Time of Evaluation: 10:30 - Subjective Subjective: Patient remains stable Creatinine is still elevated. 3.5 Started to have urine output. more alert, Objective - Vital Signs/Intake and Output Vital Signs (last 24 hours): Temp Pulse Resp BP Pulse Ox 97.5 F L 101 H 18 156/69 H 95 05/20/16 08:16 05/20/16 08:16 05/20/16 08:16 05/20/16 08:16 05/20/16 08:16 Intake and Output: 05/20/16 05/20/16 06:59 18:59 Intake Total 300 Output Total 300 Balance 0 - Medications Medications: Current Medications Cholestyramine Resin (Questran) 4 gm PO DAILY [facility] Last Admin: 05/19/16 12:17 Dose: 4 gm Doxercalciferol (Hectorol) 2 mcg IV MWF [facility] Last Admin: 05/19/16 08:59 Dose: 2 mcg Epoetin Claudio (Procrit) 10,000 unit SC MWF [facility] Last Admin: 05/19/16 09:00 Dose: 10,000 unit Metronidazole (Flagyl 500mg/100ml Ns) 100 mls @ 100 mls/hr IVPB Q8 [facility] Last Admin: 05/20/16 00:22 Dose: 100 mls/hr Iron Sucrose 100 mg/ Sodium (Chloride) 105 mls @ 105 mls/hr IVPB DAILY [facility] Stop: 05/27/16 12:46 Last Admin: 05/19/16 12:17 Dose: 105 mls/hr Metoprolol Tartrate (Lopressor) 25 mg PO Q12 [facility] Last Admin: 05/19/16 21:14 Dose: 25 mg Pantoprazole Sodium (Protonix Ec Tab) 40 mg PO DAILY [facility] Last Admin: 05/19/16 12:17 Dose: 40 mg - Labs Labs: 05/18/16 06:00 05/19/16 15:09 PT 11.8 SECONDS (9.6-11.2) H 05/15/16 11:07 INR 1.13 (0.92-1.08) H 05/15/16 11:07 APTT 37.5 SECONDS (23.3-32.5) H 05/15/16 11:07 - Head Exam Head Exam: NORMAL INSPECTION - Eye Exam Eye Exam: Normal appearance Additional comments: pale conjunctivae - ENT Exam ENT Exam: Mucous Membranes Moist - Respiratory Exam Respiratory Exam: Clear to Ausculation Bilateral - Cardiovascular Exam Cardiovascular Exam: REGULAR RHYTHM - GI/Abdominal Exam GI & Abdominal Exam: Normal Bowel Sounds - Neurological Exam Neurological Exam: Awake, Oriented x3 Assessment and Plan (1) Hypovolemia dehydration Status: Acute (2) Pancolitis Status: Acute (3) Acute renal failure Status: Acute (4) Gastroenteritis and colitis, viral Status: Acute (5) Toxic colitis Status: Acute (6) Toxic dilatation of colon Status: Acute - Assessment and Plan (Free Text) Plan: cont medCont tx HD increase fluids ECHO reviewed. Normal EF
--- NOTE | 2016-05-20 08:36 | CP.PCM.PN ---
Subjective - Date & Time of Evaluation Date of Evaluation: 05/20/16 Time of Evaluation: 08:36 - Subjective Subjective: Patient remains stable Has no fever. Noted more urine output. has no abd pain. Objective - Vital Signs/Intake and Output Vital Signs (last 24 hours): Temp Pulse Resp BP Pulse Ox 97.5 F L 101 H 18 156/69 H 95 05/20/16 08:16 05/20/16 08:16 05/20/16 08:16 05/20/16 08:16 05/20/16 08:16 Intake and Output: 05/20/16 05/20/16 06:59 18:59 Intake Total 300 Output Total 300 Balance 0 - Medications Medications: Current Medications Cholestyramine Resin (Questran) 4 gm PO DAILY [facility] Last Admin: 05/19/16 12:17 Dose: 4 gm Doxercalciferol (Hectorol) 2 mcg IV MWF [facility] Last Admin: 05/19/16 08:59 Dose: 2 mcg Epoetin Claudio (Procrit) 10,000 unit SC MWF [facility] Last Admin: 05/19/16 09:00 Dose: 10,000 unit Metronidazole (Flagyl 500mg/100ml Ns) 100 mls @ 100 mls/hr IVPB Q8 [facility] Last Admin: 05/20/16 00:22 Dose: 100 mls/hr Iron Sucrose 100 mg/ Sodium (Chloride) 105 mls @ 105 mls/hr IVPB DAILY [facility] Stop: 05/27/16 12:46 Last Admin: 05/19/16 12:17 Dose: 105 mls/hr Metoprolol Tartrate (Lopressor) 25 mg PO Q12 [facility] Last Admin: 05/19/16 21:14 Dose: 25 mg Pantoprazole Sodium (Protonix Ec Tab) 40 mg PO DAILY [facility] Last Admin: 05/19/16 12:17 Dose: 40 mg - Labs Labs: 05/18/16 06:00 05/19/16 15:09 PT 11.8 SECONDS (9.6-11.2) H 05/15/16 11:07 INR 1.13 (0.92-1.08) H 05/15/16 11:07 APTT 37.5 SECONDS (23.3-32.5) H 05/15/16 11:07 - Head Exam Head Exam: NORMAL INSPECTION - Eye Exam Eye Exam: Normal appearance - ENT Exam ENT Exam: Mucous Membranes Moist - Respiratory Exam Respiratory Exam: Clear to Ausculation Bilateral - Cardiovascular Exam Cardiovascular Exam: REGULAR RHYTHM - GI/Abdominal Exam GI & Abdominal Exam: Soft - Neurological Exam Neurological Exam: Awake, Oriented x3 - Psychiatric Exam Psychiatric exam: Anxious Assessment and Plan (1) Hypovolemia dehydration Status: Acute (2) Pancolitis Status: Acute (3) Acute renal failure Status: Acute (4) Gastroenteritis and colitis, viral Status: Acute (5) Toxic colitis Status: Acute (6) Toxic dilatation of colon Status: Acute - Assessment and Plan (Free Text) Plan: cont meds Cont tx Iv fluids cont HD DC [place]
[2016-05-20] MEDS: Pantoprazole 40 mg EC Tab PO SCH (08:39)
[2016-05-20] MEDS: Cholestyramine 4 gm/Pkt UD PO SCH (08:40)
[2016-05-20 08:55] LABS: CALCIUM 7.6 mg/dL (8.4-10.2)
--- NOTE | 2016-05-20 10:53 | CP.PCM.PN ---
Subjective - Date & Time of Evaluation Date of Evaluation: 05/20/16 Time of Evaluation: 10:52 - Subjective Subjective: pt seen and examind, follow up consult is dictated #[id number] Objective - Vital Signs/Intake and Output Vital Signs (last 24 hours): Temp Pulse Resp BP Pulse Ox 97.5 F L 101 H 18 156/69 H 95 05/20/16 08:16 05/20/16 08:39 05/20/16 08:16 05/20/16 08:39 05/20/16 08:16 Intake and Output: 05/20/16 05/20/16 06:59 18:59 Intake Total 300 Output Total 300 Balance 0 - Medications Medications: Current Medications Cholestyramine Resin (Questran) 4 gm PO DAILY [facility] Last Admin: 05/20/16 08:40 Dose: 4 gm Doxercalciferol (Hectorol) 2 mcg IV MWF [facility] Last Admin: 05/19/16 08:59 Dose: 2 mcg Epoetin Claudio (Procrit) 10,000 unit SC MWF [facility] Last Admin: 05/19/16 09:00 Dose: 10,000 unit Metronidazole (Flagyl 500mg/100ml Ns) 100 mls @ 100 mls/hr IVPB Q8 [facility] Last Admin: 05/20/16 08:37 Dose: 100 mls/hr Iron Sucrose 100 mg/ Sodium (Chloride) 105 mls @ 105 mls/hr IVPB DAILY [facility] Stop: 05/27/16 12:46 Last Admin: 05/19/16 12:17 Dose: 105 mls/hr Metoprolol Tartrate (Lopressor) 25 mg PO Q12 [facility] Last Admin: 05/20/16 08:39 Dose: 25 mg Pantoprazole Sodium (Protonix Ec Tab) 40 mg PO DAILY [facility] Last Admin: 05/20/16 08:39 Dose: 40 mg - Labs Labs: 05/18/16 06:00 05/20/16 08:25 PT 11.8 SECONDS (9.6-11.2) H 05/15/16 11:07 INR 1.13 (0.92-1.08) H 05/15/16 11:07 APTT 37.5 SECONDS (23.3-32.5) H 05/15/16 11:07
--- NOTE | 2016-05-20 12:11 | PN ---
DATE: 05/20/2016 The patient is located in room 667, bed 1. HISTORY OF PRESENT ILLNESS: The patient is a 75-year-old elderly male with a history of hy pertension, mild dementia and myasthenia gravis, who was admitted with severe watery diarrhea and fee ling weak, tired and lightheadedness and found to have a hyperkalemia, metabolic acidosis, and acute renal failure requiring initiation of the hemodialysis for the anuria. The patient is feeling better , now status post hemodialysis x 3. The patient is feeling much stronger. No more nausea, vomiting, diarrhea. No abdominal pain. Aviles catheter was discontinued. The patient is out of bed to chair today. PHYSICAL EXAMINATION: VITAL SIGNS: As follows: Blood pressure 156/69, pulse 101, respirations 18, temperature 97.5, satur ation 95%, height 6 feet 1 inch, weight is 201 pounds. GENERAL: The patient is a 75-year-old male, well built, well nourished, not in distress. HEENT: Pupils normal, reactive to light and accommodation. Conjunctivae pink. Sclerae anicteric. Tongue is moist. NECK: Trachea is midline. LUNGS: Symmetric on both sides. Bilateral breath sounds present. Clear on auscultation. CARDIOVASCULAR: [place] in the fifth intercostal space midclavicular line. S1 and S2 audible. No murm ur or gallop. ABDOMEN: Normal in appearance, soft, tympanic. No guarding, no rigidity. No hepatosplenomegaly. CENTRAL NERVOUS SYSTEM: The patient is alert, awake, oriented x 3, nonfocal on examination. Cranial nerves II-XII grossly intact. Sensory and motor system is within normal limits. EXTREMITIES: No cyanosis, no clubbing. Trace edema in both lower extremities. His I and O. Intake is 1680, output is 2200 and urine output is about 700 and UF about 1.5 L during dialysis. CURRENT MEDICATIONS: Include as follows: Flagyl 500 IV q. 8 hours, Hectorol 2 mcg 3 times a week, i benjamin 100 mg IV daily, Lopressor 25 mg p.o. q. 12 hours, Procrit 10,000 units 3 times a week, Sunday, W and Sunday, Protonix 40 mg p.o. daily and Questran 4 g p.o. daily. LABORATORY DATA: Include as of 05/18/2016. WBC 8, hemoglobin 9, hematocrit is 28.7, platelets 143. As of 05/20/2016, sodium is 139, potassium is 4, chloride 102, CO2 23, BUN 44, creatinine 4.3, glucose 79, calcium 7.6 and blood culture x 2 negative day 5 and stool cultures negative and stool for ova a nd parasites negative and urine culture is negative. MRSA screening was not detected. SUMMARY: The patient is a 75-year-old elderly male with hypertension, mild dementia, and myasthenia with severe diarrhea and acute renal failure and anemia, status post transfusion of 1 unit packed RBC . 1. Acute renal failure. Now, the patient is nonoliguric. Renal function is slowly improving. Stat us post hemodialysis yesterday, had ultrafiltration about 1.5 L. We will try to hold off on dialysis on Sunday and continue to monitor BMP daily. 2. Anemia. Hemoglobin and hematocrit are stable and continue Procrit subQ 3 times a week. 3. Hypertension. Blood pressure is slightly high. Continue metoprolol and we will discontinue IV f luids and Lasix 40 mg x 1 dose now and BMP in a.m. and CBC in the a.m. Consider physical therapy ryland luation and consider subacute rehab. We will try to hold the dialysis on Sunday. Thank you for allowing me to participate in your patient's care. Kwaku Allison MD cc: [id number] TT: 05/20/2016 12:10:23 Confirmation # [id number] Dictation # [id number] tn
--- NOTE | 2016-05-20 12:25 | CP.PCM.PN ---
Subjective - Date & Time of Evaluation Date of Evaluation: 05/20/16 Time of Evaluation: 09:00 - Subjective Subjective: no fever alert/ confused nad Objective - Vital Signs/Intake and Output Vital Signs (last 24 hours): Temp Pulse Resp BP Pulse Ox 97.5 F L 101 H 18 156/69 H 95 05/20/16 08:16 05/20/16 08:39 05/20/16 08:16 05/20/16 08:39 05/20/16 08:16 Intake and Output: 05/20/16 05/20/16 06:59 18:59 Intake Total 300 Output Total 300 Balance 0 - Medications Medications: Current Medications Cholestyramine Resin (Questran) 4 gm PO DAILY [facility] Last Admin: 05/20/16 08:40 Dose: 4 gm Doxercalciferol (Hectorol) 2 mcg IV MWF [facility] Last Admin: 05/19/16 08:59 Dose: 2 mcg Epoetin Claudio (Procrit) 10,000 unit SC MWF [facility] Last Admin: 05/19/16 09:00 Dose: 10,000 unit Metronidazole (Flagyl 500mg/100ml Ns) 100 mls @ 100 mls/hr IVPB Q8 [facility] Last Admin: 05/20/16 08:37 Dose: 100 mls/hr Iron Sucrose 100 mg/ Sodium (Chloride) 105 mls @ 105 mls/hr IVPB DAILY [facility] Stop: 05/27/16 12:46 Last Admin: 05/19/16 12:17 Dose: 105 mls/hr Sodium Chloride (Sodium Chloride 0.45%) 1,000 mls @ 70 mls/hr IV .[id number] [facility] Stop: 05/22/16 11:46 Metoprolol Tartrate (Lopressor) 25 mg PO Q12 [facility] Last Admin: 05/20/16 08:39 Dose: 25 mg Pantoprazole Sodium (Protonix Ec Tab) 40 mg PO DAILY [facility] Last Admin: 05/20/16 08:39 Dose: 40 mg Vitamin B Complex/Vit C/Folic Acid (Nephro-Leisa) 1 tab PO DAILY [facility] - Labs Labs: 05/18/16 06:00 05/20/16 08:25 PT 11.8 SECONDS (9.6-11.2) H 05/15/16 11:07 INR 1.13 (0.92-1.08) H 05/15/16 11:07 APTT 37.5 SECONDS (23.3-32.5) H 05/15/16 11:07 - Constitutional Appears: Non-toxic, Cachectic, Chronically Ill - Head Exam Head Exam: NORMOCEPHALIC - Eye Exam Eye Exam: PERRL. absent: Scleral icterus - ENT Exam ENT Exam: Mucous Membranes Dry - Neck Exam Neck Exam: absent: Lymphadenopathy - Respiratory Exam Respiratory Exam: Decreased Breath Sounds, Rhonchi - Cardiovascular Exam Cardiovascular Exam: REGULAR RHYTHM, +S1, +S2 - GI/Abdominal Exam GI & Abdominal Exam: Distended, Soft. absent: Tenderness - Rectal Exam Rectal Exam: Deferred - Exam Exam: NORMAL INSPECTION - Extremities Exam Extremities Exam: absent: Pedal Edema - Back Exam Back Exam: absent: CVA tenderness (L), CVA tenderness (R) Assessment and Plan (1) Dehydration Status: Acute (2) Pancolitis Status: Acute (3) Renal insufficiency Status: Acute (4) Hypovolemia dehydration Status: Acute
[2016-05-20] MEDS: Multivitamin Vitamin B Complex (Nephro-Vite) Tab PO SCH (15:18)
[2016-05-20 17:09] VITALS: RESP 20
[2016-05-21] MEDS: metroNIDAZOLE 500mg/100ml NS 100 ML IVPB SCH ×3 (01:33→16:39)
[2016-05-21] MEDS: Sodium Chloride 0.45% 1,000 ML IV SCH ×4 (02:09→16:41)
[2016-05-21 08:07] LABS: HEMATOCRIT 26.9 % (35.0-51.0); MEAN CELL VOLUME 70.1 fl (80.0-94.0); MEAN CORPUSCULAR HEMOGLOBIN 22.4 pg (27.0-31.0); RED CELL DISTRIBUTION WIDTH 18.4 % (11.5-14.5); WHITE BLOOD COUNT 6.6 K/uL (4.8-10.8)
[2016-05-21] MEDS: Cholestyramine 4 gm/Pkt UD PO SCH (08:32)
[2016-05-21] MEDS: Pantoprazole 40 mg EC Tab PO SCH (08:32)
[2016-05-21] MEDS: Multivitamin Vitamin B Complex (Nephro-Vite) Tab PO SCH (08:32)
[2016-05-21 10:50] LABS: CALCIUM 7.8 mg/dL (8.4-10.2); POTASSIUM 3.5 MMOL/L (3.6-5.0)
--- NOTE | 2016-05-21 11:25 | CP.PCM.PN ---
Subjective - Date & Time of Evaluation Date of Evaluation: 05/15/16 Time of Evaluation: 10:00 - Subjective Subjective: patient has some confusion. Discussed with Dr De Los Santos. Noted continued rising creatinine. has no fever. Objective - Vital Signs/Intake and Output Vital Signs (last 24 hours): Temp Pulse Resp BP Pulse Ox 98.2 F 100 H 20 158/69 H 91 L 05/21/16 07:57 05/21/16 08:32 05/21/16 07:57 05/21/16 08:32 05/21/16 07:57 Intake and Output: 05/21/16 05/21/16 06:59 18:59 Output Total 40 Balance -40 - Medications Medications: Current Medications Cholestyramine Resin (Questran) 4 gm PO DAILY [facility] Last Admin: 05/21/16 08:32 Dose: 4 gm Doxercalciferol (Hectorol) 2 mcg IV MWF [facility] Last Admin: 05/19/16 08:59 Dose: 2 mcg Epoetin Claudio (Procrit) 20,000 unit SC MWF [facility] Ferrous Sulfate (Feosol) 325 mg PO DAILY [facility] Metronidazole (Flagyl 500mg/100ml Ns) 100 mls @ 100 mls/hr IVPB Q8 [facility] Last Admin: 05/21/16 10:25 Dose: 100 mls/hr Iron Sucrose 100 mg/ Sodium (Chloride) 105 mls @ 105 mls/hr IVPB DAILY [facility] Stop: 05/27/16 12:46 Last Admin: 05/20/16 12:58 Dose: 105 mls/hr Sodium Chloride (Sodium Chloride 0.45%) 1,000 mls @ 70 mls/hr IV .[id number] [facility] Stop: 05/22/16 11:46 Last Admin: 05/21/16 08:33 Dose: 70 mls/hr Metoprolol Tartrate (Lopressor) 25 mg PO Q12 [facility] Last Admin: 05/21/16 08:32 Dose: 25 mg Pantoprazole Sodium (Protonix Ec Tab) 40 mg PO DAILY [facility] Last Admin: 05/21/16 08:32 Dose: 40 mg Vitamin B Complex/Vit C/Folic Acid (Nephro-Leisa) 1 tab PO DAILY [facility] Last Admin: 05/21/16 08:32 Dose: 1 tab - Labs Labs: 05/21/16 06:30 05/21/16 09:30 PT 11.8 SECONDS (9.6-11.2) H 05/15/16 11:07 INR 1.13 (0.92-1.08) H 05/15/16 11:07 APTT 37.5 SECONDS (23.3-32.5) H 05/15/16 11:07 - Head Exam Head Exam: NORMAL INSPECTION - Eye Exam Eye Exam: Normal appearance - Respiratory Exam Respiratory Exam: Clear to Ausculation Bilateral - Cardiovascular Exam Cardiovascular Exam: REGULAR RHYTHM - GI/Abdominal Exam GI & Abdominal Exam: Normal Bowel Sounds - Neurological Exam Neurological Exam: Altered, CN II-XII Intact - Skin Skin Exam: Dry Assessment and Plan (1) Hypovolemia dehydration Status: Acute (2) Pancolitis Status: Acute (3) Acute renal failure Status: Acute (4) Gastroenteritis and colitis, viral Status: Acute (5) Toxic colitis Status: Acute (6) Toxic dilatation of colon Status: Acute - Assessment and Plan (Free Text) Plan: cont meds Cont tx Cont IV fluids hemodialysis folow up cbc cmp.
--- NOTE | 2016-05-21 11:32 | CP.PCM.PN ---
Subjective - Date & Time of Evaluation Date of Evaluation: 05/21/16 Time of Evaluation: 11:30 - Subjective Subjective: Noted decreased urine output and creatinine rising HD was held and currently on D5 1/2 at [address] Waddell. Noted low Hgb. 8.6 on procrit 10 K 3x a week. BUN 456 Cr 4.1 Objective - Vital Signs/Intake and Output Vital Signs (last 24 hours): Temp Pulse Resp BP Pulse Ox 98.2 F 100 H 20 158/69 H 91 L 05/21/16 07:57 05/21/16 08:32 05/21/16 07:57 05/21/16 08:32 05/21/16 07:57 Intake and Output: 05/21/16 05/21/16 06:59 18:59 Output Total 40 Balance -40 - Medications Medications: Current Medications Cholestyramine Resin (Questran) 4 gm PO DAILY [facility] Last Admin: 05/21/16 08:32 Dose: 4 gm Doxercalciferol (Hectorol) 2 mcg IV MWF [facility] Last Admin: 05/19/16 08:59 Dose: 2 mcg Epoetin Claudio (Procrit) 20,000 unit SC MWF [facility] Ferrous Sulfate (Feosol) 325 mg PO DAILY [facility] Metronidazole (Flagyl 500mg/100ml Ns) 100 mls @ 100 mls/hr IVPB Q8 [facility] Last Admin: 05/21/16 10:25 Dose: 100 mls/hr Iron Sucrose 100 mg/ Sodium (Chloride) 105 mls @ 105 mls/hr IVPB DAILY [facility] Stop: 05/27/16 12:46 Last Admin: 05/20/16 12:58 Dose: 105 mls/hr Sodium Chloride (Sodium Chloride 0.45%) 1,000 mls @ 70 mls/hr IV .[id number] [facility] Stop: 05/22/16 11:46 Last Admin: 05/21/16 08:33 Dose: 70 mls/hr Metoprolol Tartrate (Lopressor) 25 mg PO Q12 [facility] Last Admin: 05/21/16 08:32 Dose: 25 mg Pantoprazole Sodium (Protonix Ec Tab) 40 mg PO DAILY [facility] Last Admin: 05/21/16 08:32 Dose: 40 mg Vitamin B Complex/Vit C/Folic Acid (Nephro-Leisa) 1 tab PO DAILY [facility] Last Admin: 05/21/16 08:32 Dose: 1 tab - Labs Labs: 05/21/16 06:30 05/21/16 09:30 PT 11.8 SECONDS (9.6-11.2) H 05/15/16 11:07 INR 1.13 (0.92-1.08) H 05/15/16 11:07 APTT 37.5 SECONDS (23.3-32.5) H 05/15/16 11:07 - Head Exam Head Exam: NORMAL INSPECTION - Eye Exam Eye Exam: Normal appearance - ENT Exam ENT Exam: Mucous Membranes Moist - Respiratory Exam Respiratory Exam: Clear to Ausculation Bilateral - Cardiovascular Exam Cardiovascular Exam: REGULAR RHYTHM - GI/Abdominal Exam GI & Abdominal Exam: Normal Bowel Sounds - Neurological Exam Neurological Exam: CN II-XII Intact, Oriented x3 Assessment and Plan (1) Hypovolemia dehydration Status: Acute (2) Pancolitis Status: Acute (3) Acute renal failure Status: Acute (4) Gastroenteritis and colitis, viral Status: Acute (5) Toxic colitis Status: Acute (6) Toxic dilatation of colon Status: Acute (7) Anemia Status: Acute - Assessment and Plan (Free Text) Plan: [place] [address] 3x a week. Discussed with Dr waddell, Monitor BP.
[2016-05-21] MEDS ORDERED: Potassium Chloride 20 mEq ER Tab PO STA (19:58)
[2016-05-22] MEDS: metroNIDAZOLE 500mg/100ml NS 100 ML IVPB SCH ×3 (01:35→18:23)
[2016-05-22] MEDS: Sodium Chloride 0.45% 1,000 ML IV SCH ×2 (04:35→07:03)
[2016-05-22] MEDS: Pantoprazole 40 mg EC Tab PO SCH (08:37)
[2016-05-22] MEDS: Potassium Chloride 20 mEq ER Tab PO SCH (08:37)
[2016-05-22] MEDS: Multivitamin Vitamin B Complex (Nephro-Vite) Tab PO SCH (08:37)
[2016-05-22] MEDS: Cholestyramine 4 gm/Pkt UD PO SCH (08:37)
[2016-05-22] MEDS ORDERED: Epoetin Alfa 20000 UNIT/ML (RENAL DOSE) SC SCH (09:00)
--- NOTE | 2016-05-22 09:01 | CP.PCM.PN ---
Subjective - Date & Time of Evaluation Date of Evaluation: 05/22/16 Time of Evaluation: 08:58 - Subjective Subjective: Patient has put out almost a liter of urine in the past 12 hrs last night. No chest pain or SOB Had urinary retention yesterday Has no cough No SOB No chest pain. Objective - Vital Signs/Intake and Output Vital Signs (last 24 hours): Temp Pulse Resp BP Pulse Ox 98.1 F 95 H 20 144/79 95 05/22/16 08:47 05/22/16 08:47 05/22/16 08:47 05/22/16 08:47 05/22/16 08:47 Intake and Output: 05/22/16 05/22/16 06:59 18:59 Output Total 300 Balance -300 - Medications Medications: Current Medications Amlodipine Besylate (Norvasc) 5 mg PO DAILY [facility] Last Admin: 05/22/16 08:40 Dose: 5 mg Cholestyramine Resin (Questran) 4 gm PO DAILY [facility] Last Admin: 05/22/16 08:37 Dose: 4 gm Doxercalciferol (Hectorol) 2 mcg IV MWF [facility] Last Admin: 05/19/16 08:59 Dose: 2 mcg Epoetin Claudio (Procrit) 20,000 unit SC MWF [facility] Metronidazole (Flagyl 500mg/100ml Ns) 100 mls @ 100 mls/hr IVPB Q8 [facility] Last Admin: 05/22/16 01:35 Dose: 100 mls/hr Iron Sucrose 100 mg/ Sodium (Chloride) 105 mls @ 105 mls/hr IVPB DAILY [facility] Stop: 05/27/16 12:46 Last Admin: 05/21/16 12:17 Dose: 105 mls/hr Sodium Chloride (Sodium Chloride 0.45%) 1,000 mls @ 70 mls/hr IV .[id number] [facility] Stop: 05/22/16 11:46 Last Admin: 05/22/16 07:03 Dose: Not Given Metoprolol Tartrate (Lopressor) 25 mg PO Q12 [facility] Last Admin: 05/22/16 08:41 Dose: 25 mg Pantoprazole Sodium (Protonix Ec Tab) 40 mg PO DAILY [facility] Last Admin: 05/22/16 08:37 Dose: 40 mg Potassium Chloride (K-Dur 20 Meq Er Tab) 20 meq PO DAILY [facility] Last Admin: 05/22/16 08:37 Dose: 20 meq Vitamin B Complex/Vit C/Folic Acid (Nephro-Leisa) 1 tab PO DAILY [facility] Last Admin: 05/22/16 08:37 Dose: 1 tab - Labs Labs: 05/21/16 06:30 05/21/16 09:30 PT 11.8 SECONDS (9.6-11.2) H 05/15/16 11:07 INR 1.13 (0.92-1.08) H 05/15/16 11:07 APTT 37.5 SECONDS (23.3-32.5) H 05/15/16 11:07 - Head Exam Head Exam: NORMAL INSPECTION - Eye Exam Eye Exam: Normal appearance - ENT Exam ENT Exam: Mucous Membranes Moist - Respiratory Exam Respiratory Exam: Clear to Ausculation Bilateral - Cardiovascular Exam Cardiovascular Exam: REGULAR RHYTHM - Neurological Exam Neurological Exam: Awake, CN II-XII Intact, Oriented x3 - Psychiatric Exam Psychiatric exam: Normal Mood Assessment and Plan (1) Hypovolemia dehydration Status: Acute (2) Pancolitis Status: Acute (3) Acute renal failure Status: Acute (4) Gastroenteritis and colitis, viral Status: Acute (5) Toxic colitis Status: Acute (6) Toxic dilatation of colon Status: Acute (7) Anemia Status: Acute - Assessment and Plan (Free Text) Plan: Cont meds monitor output Flomax cont PT ambulate encouraged po liquids,
[2016-05-22 09:45] LABS: CALCIUM 8.1 mg/dL (8.4-10.2); POTASSIUM 3.6 MMOL/L (3.6-5.0)
--- NOTE | 2016-05-22 10:43 | CP.PCM.PN ---
Subjective - Date & Time of Evaluation Date of Evaluation: 05/22/16 Time of Evaluation: 10:42 - Subjective Subjective: pt seen and examined, follow up consult is dictated #[id number] renal function is improving, will hold hd check labs in am Objective - Vital Signs/Intake and Output Vital Signs (last 24 hours): Temp Pulse Resp BP Pulse Ox 98.1 F 95 H 20 144/79 95 05/22/16 08:47 05/22/16 08:47 05/22/16 08:47 05/22/16 08:47 05/22/16 08:47 Intake and Output: 05/22/16 05/22/16 06:59 18:59 Output Total 300 Balance -300 - Medications Medications: Current Medications Amlodipine Besylate (Norvasc) 5 mg PO DAILY [facility] Last Admin: 05/22/16 08:40 Dose: 5 mg Cholestyramine Resin (Questran) 4 gm PO DAILY [facility] Last Admin: 05/22/16 08:37 Dose: 4 gm Doxercalciferol (Hectorol) 2 mcg IV MWF [facility] Last Admin: 05/19/16 08:59 Dose: 2 mcg Epoetin Claudio (Procrit) 20,000 unit SC F [facility] Metronidazole (Flagyl 500mg/100ml Ns) 100 mls @ 100 mls/hr IVPB Q8 [facility] Last Admin: 05/22/16 01:35 Dose: 100 mls/hr Iron Sucrose 100 mg/ Sodium (Chloride) 105 mls @ 105 mls/hr IVPB DAILY [facility] Stop: 05/27/16 12:46 Last Admin: 05/21/16 12:17 Dose: 105 mls/hr Sodium Chloride (Sodium Chloride 0.45%) 1,000 mls @ 70 mls/hr IV .[id number] [facility] Stop: 05/22/16 11:46 Last Admin: 05/22/16 07:03 Dose: Not Given Metoprolol Tartrate (Lopressor) 25 mg PO Q12 [facility] Last Admin: 05/22/16 08:41 Dose: 25 mg Pantoprazole Sodium (Protonix Ec Tab) 40 mg PO DAILY [facility] Last Admin: 05/22/16 08:37 Dose: 40 mg Potassium Chloride (K-Dur 20 Meq Er Tab) 20 meq PO DAILY [facility] Last Admin: 05/22/16 08:37 Dose: 20 meq Tamsulosin HCl (Flomax) 0.4 mg PO DAILY [facility] Vitamin B Complex/Vit C/Folic Acid (Nephro-Leisa) 1 tab PO DAILY [facility] Last Admin: 05/22/16 08:37 Dose: 1 tab - Labs Labs: 05/21/16 06:30 05/22/16 09:19 PT 11.8 SECONDS (9.6-11.2) H 05/15/16 11:07 INR 1.13 (0.92-1.08) H 05/15/16 11:07 APTT 37.5 SECONDS (23.3-32.5) H 05/15/16 11:07
[2016-05-22] MEDS: Doxercalciferol 4 mcg/2 ml Inj IV SCH (12:52)
[2016-05-22] MEDS ORDERED: Potassium Chloride 20 mEq ER Tab PO ONE (19:53)
--- NOTE | 2016-05-22 23:37 | PN ---
DATE: 05/22/2016 Followup renal consultation The patient is located in room 667, bed 1. REQUESTED BY: Dr. Miguel Rodríguez. REASON FOR RENAL CONSULTATION: Acute renal failure. HISTORY OF PRESENT ILLNESS: The patient is a 75-year-old elderly male with a past medical history significant for hypertension, mild dementia, myasthenia gravis, who was admitted with severe, profuse diarrhea and found to be hypotensive and also dehydrated with acute renal failure, metabolic acidosis, hyperkalemia, requiring initiation of the hemodialysis for ATN. The patient underwe nt hemodialysis x 3, and patient is feeling better and claims he has a good urine output. No chest p ain. No palpitations. No fever. No cough. No nausea, vomiting, diarrhea. PHYSICAL EXAMINATION: VITAL SIGNS: Blood pressure this morning 144/79, pulse 95, respiration 20, temperature 98.1, saturat ion 95%, height 6 feet 1 inches and weight is 201 pounds. GENERAL: The patient is a 75-year-old elderly, very pleasant male, moderately built, moder ately nourished, not in acute distress. HEENT: Pupils normal, reactive to light and accommodation. Conjunctivae pink. Sclerae anicteric. Tongue is moist. NECK: Trachea is midline. LUNGS: Symmetric on both sides. Bilateral breath sounds present. No murmur. No gallop. CARDIOVASCULAR: [place] in the fifth intercostal space midclavicular line. S1 and S2 audible. No murm ur or gallop. ABDOMEN: Normal in appearance, soft, tympanitic. No guarding. No rigidity. No hepatosplenomegaly. CENTRAL NERVOUS SYSTEM: The patient is alert, awake, oriented x 2-3. Sensory and motor system are g rossly within normal limits. EXTREMITIES: No cyanosis. No clubbing. No edema. Cranial nerves II-XII grossly intact. CURRENT MEDICATIONS: Include as follows: Flagyl 500 mg q. 8 hours, Flomax 0.4 mg p.o. daily, Hect orol on hold, and iron sucrose 100 mg IV piggyback daily and K-Dur 20 mEq p.o. x 1, Lopressor 25 mg p .o. q. 12 hours and Nephro-Leisa Rx 1 tablet p.o. daily, Norvasc 5 mg daily, Procrit 20,000 units subQ 3 times a week and Protonix 40 mg p.o. daily and Questran 4 mg p.o. daily. LABORATORY DATA: Include as follows: As of 05/22/2016: Sodium 139, potassium 3.6, chloride 105, CO 2 21, BUN 38, creatinine 3.4, glucose 79, calcium 8.1. His other laboratory data as of 05/13/2016: Blood culture x 2 negative and stool cultures are negative and urine culture negative as of 7 and MRSA screening was negative. SUMMARY: The patient is a 75-year-old elderly, very pleasant, male with a history of hyper tension, mild dementia, myasthenia gravis, who was admitted with severe, profuse diarrhea, weakness, and severe dehydration, metabolic acidosis, hyperkalemia, and anuric acute renal failure requiring in itiation of hemodialysis. 1. Nonoliguric acute renal failure. Urine output is improving nicely and renal function is slowly i mproving. 2. Hypertension. 3. Status post diarrhea. Rule out viral versus toxic colitis. Repeat BMP in a.m. and discontinue f luid restriction and increase p.o. fluids as tolerated, and no need for continuation of the hemodialy sis at this time. Continue physical therapy. Thank you for allowing me to participate in your patient's care. Repeat BMP and magnesium level in a.m. Kwaku Allison MD cc: 165 TT: 05/22/2016 23:36:47 Confirmation # [id number] Dictation # [id number] tn
[2016-05-23] MEDS: metroNIDAZOLE 500mg/100ml NS 100 ML IVPB SCH ×3 (00:02→17:07)
[2016-05-23 06:17] LABS: BASO % 0.6 % (0.0-2.0); EOS # 0.2 K/uL (0.0-0.7); EOS % 1.9 % (0.0-4.0); HEMATOCRIT 28.4 % (35.0-51.0); LYMPH # 0.7 K/uL (1.0-4.3); MEAN CELL VOLUME 71.1 fl (80.0-94.0); MEAN CORPUSCULAR HEMOGLOBIN 22.7 pg (27.0-31.0); MEAN CORPUSCULAR HGB CONC 31.9 g/dL (33.0-37.0); MEAN PLATELET VOLUME 7.9 fl (7.2-11.7); MONO # 0.6 K/uL (0.0-0.8); NEUT # 6.9 K/uL (1.8-7.0); NEUT % 82.5 % (50.0-75.0); PLATELET COUNT 323 K/uL (130-400); RED CELL DISTRIBUTION WIDTH 18.5 % (11.5-14.5); WHITE BLOOD COUNT 8.4 K/uL (4.8-10.8)
[2016-05-23 06:24] LABS: BILIRUBIN,TOTAL 0.3 mg/dl (0.2-1.3); POTASSIUM 3.4 MMOL/L (3.6-5.0); TOTAL PROTEIN 4.6 G/DL (6.3-8.2)
[2016-05-23 06:25] LABS: ALB/GLOB RATIO 0.8 (1.0-2.1)
[2016-05-23] MEDS: Potassium Chloride 20 mEq ER Tab PO SCH (08:15)
[2016-05-23] MEDS: Cholestyramine 4 gm/Pkt UD PO SCH (08:15)
[2016-05-23] MEDS: Multivitamin Vitamin B Complex (Nephro-Vite) Tab PO SCH (08:15)
[2016-05-23] MEDS: Pantoprazole 40 mg EC Tab PO SCH (08:18)
[2016-05-23 08:51] LABS: CALCIUM 8.3 mg/dL (8.4-10.2); POTASSIUM 3.4 MMOL/L (3.6-5.0)
--- NOTE | 2016-05-23 08:57 | CP.PCM.PN ---
Subjective - Date & Time of Evaluation Date of Evaluation: 05/23/16 Time of Evaluation: 08:57 - Subjective Subjective: ptseen and examined, follow up consult is dictated #[id number] k dur 40 meq po x 1 d/c rt ijv sarah catheter check mg level Objective - Vital Signs/Intake and Output Vital Signs (last 24 hours): Temp Pulse Resp BP Pulse Ox 98.4 F 101 H 20 149/68 97 05/23/16 08:29 05/23/16 08:29 05/23/16 08:29 05/23/16 08:29 05/23/16 08:29 Intake and Output: 05/23/16 05/23/16 06:59 18:59 Intake Total 100 Output Total 850 Balance -750 - Medications Medications: Current Medications Amlodipine Besylate (Norvasc) 5 mg PO DAILY [facility] Last Admin: 05/23/16 08:19 Dose: 5 mg Cholestyramine Resin (Questran) 4 gm PO DAILY [facility] Last Admin: 05/23/16 08:15 Dose: 4 gm Doxercalciferol (Hectorol) 2 mcg IV MWF [facility] Last Admin: 05/22/16 12:52 Dose: Not Given Epoetin Claudio (Procrit) 20,000 unit SC MWF [facility] Last Admin: 05/22/16 15:40 Dose: 20,000 unit Metronidazole (Flagyl 500mg/100ml Ns) 100 mls @ 100 mls/hr IVPB Q8 [facility] Last Admin: 05/23/16 08:20 Dose: 100 mls/hr Iron Sucrose 100 mg/ Sodium (Chloride) 105 mls @ 105 mls/hr IVPB DAILY [facility] Stop: 05/27/16 12:46 Last Admin: 05/22/16 15:39 Dose: 105 mls/hr Metoprolol Tartrate (Lopressor) 25 mg PO Q12 [facility] Last Admin: 05/23/16 08:17 Dose: 25 mg Pantoprazole Sodium (Protonix Ec Tab) 40 mg PO DAILY [facility] Last Admin: 05/23/16 08:18 Dose: 40 mg Potassium Chloride (K-Dur 20 Meq Er Tab) 20 meq PO DAILY [facility] Last Admin: 05/23/16 08:15 Dose: 20 meq Tamsulosin HCl (Flomax) 0.4 mg PO DAILY [facility] Last Admin: 05/23/16 08:19 Dose: 0.4 mg Vitamin B Complex/Vit C/Folic Acid (Nephro-Leisa) 1 tab PO DAILY [facility] Last Admin: 05/23/16 08:15 Dose: 1 tab - Labs Labs: 05/23/16 05:00 05/23/16 05:00 PT 11.8 SECONDS (9.6-11.2) H 05/15/16 11:07 INR 1.13 (0.92-1.08) H 05/15/16 11:07 APTT 37.5 SECONDS (23.3-32.5) H 05/15/16 11:07
[2016-05-23] MEDS ORDERED: Potassium Chloride 40 mEq/30 ml LIQ UD PO ONE (08:58)
--- NOTE | 2016-05-23 09:29 | CP.PCM.DIS ---
Provider - Provider Date of Admission: 05/13/16 17:00 Attending physician: Miguel Rodríguez MD Time Spent in preparation of Discharge (in minutes): 45 Hospital Course - Lab Results Lab Results: Micro Results 05/19/16 06:00 Nose MRSA Culture (Admit) - Final MRSA NOT DETECTED 05/13/16 17:30 Blood Blood Culture - Final NO GROWTH AFTER 5 DAYS 05/13/16 17:30 Blood Gram Stain - Final TEST NOT PERFORMED 05/13/16 17:30 Blood Blood Culture - Final NO GROWTH AFTER 5 DAYS 05/13/16 17:30 Blood Gram Stain - Final TEST NOT PERFORMED 05/15/16 04:00 Urine,Catheterized Urine Culture - Final No Growth (<1,000 CFU/ML) 05/14/16 06:00 Stool Stool Culture - Final NO SALMONELLA, SHIGELLA OR CAMPYLOBACTER ISOLATED. 05/15/16 07:02 Naris MRSA Culture (Admit) - Final MRSA NOT DETECTED 05/13/16 19:55 Stool Stool Culture - Final NO SALMONELLA, SHIGELLA OR CAMPYLOBACTER ISOLATED. 05/13/16 19:55 Stool Ova and Parasite Concentrate Exam - Final Most Recent Lab Values WBC 8.4 K/uL (4.8-10.8) 05/23/16 05:00 RBC 4.00 Mil/uL (4.40-5.90) L 05/23/16 05:00 Hgb 9.1 g/dL (12.0-18.0) L 05/23/16 05:00 Hct 28.4 % (35.0-51.0) L 05/23/16 05:00 MCV 71.1 fl (80.0-94.0) L 05/23/16 05:00 MCH 22.7 pg (27.0-31.0) L 05/23/16 05:00 MCHC 31.9 g/dL (33.0-37.0) L 05/23/16 05:00 RDW 18.5 % (11.5-14.5) H 05/23/16 05:00 Plt Count 323 K/uL (130-400) D 05/23/16 05:00 MPV 7.9 fl (7.2-11.7) 05/23/16 05:00 Neut % (Auto) 82.5 % (50.0-75.0) H 05/23/16 05:00 Lymph % (Auto) 8.0 % (20.0-40.0) L 05/23/16 05:00 [place] % (Auto) 7.0 % (0.0-10.0) 05/23/16 05:00 Eos % (Auto) 1.9 % (0.0-4.0) 05/23/16 05:00 Baso % (Auto) 0.6 % (0.0-2.0) 05/23/16 05:00 Neut # 6.9 K/uL (1.8-7.0) 05/23/16 05:00 Lymph # 0.7 K/uL (1.0-4.3) L 05/23/16 05:00 [place] # 0.6 K/uL (0.0-0.8) 05/23/16 05:00 Eos # 0.2 K/uL (0.0-0.7) 05/23/16 05:00 Baso # 0.0 K/uL (0.0-0.2) 05/23/16 05:00 Neutrophils % (Manual) 89 % (42-75) H 05/17/16 04:35 Band Neutrophils % 2 % (0-2) 05/17/16 04:35 Lymphocytes % (Manual) 5 % (20-50) L 05/17/16 04:35 Monocytes % (Manual) 2 % (0-10) 05/17/16 04:35 Eosinophils % (Manual) 2 % (0-7) 05/17/16 04:35 Toxic Granulation Present 05/17/16 04:35 Platelet Estimate Normal (NORMAL) 05/17/16 04:35 Hypochromasia (manual) Slight 05/13/16 13:45 Anisocytosis (manual) Slight 05/17/16 04:35 [place] Cells Slight 05/17/16 04:35 PT 11.8 SECONDS (9.6-11.2) H 05/15/16 11:07 INR 1.13 (0.92-1.08) H 05/15/16 11:07 APTT 37.5 SECONDS (23.3-32.5) H 05/15/16 11:07 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 05/15/16 02:25 pCO2 25 mm/Hg (35-45) L 05/15/16 02:25 pO2 62 mm/Hg (80-100) L 05/15/16 02:25 HCO3 20.0 mmol/L (21-28) L 05/15/16 02:25 ABG pH 7.44 (7.35-7.45) 05/15/16 02:25 ABG Total CO2 17.8 mmol/L (22-28) L 05/15/16 02:25 ABG O2 Saturation 95.1 % (95-98) 05/15/16 02:25 ABG Base Excess -6.3 mmol/L (-2.0-3.0) L 05/15/16 02:25 ABG Hemoglobin 7.5 g/dL (11.7-17.4) L 05/15/16 02:25 ABG Carboxyhemoglobin 1.3 % (0.5-1.5) 05/15/16 02:25 POC ABG HHb (Measured) 4.8 % (0.0-5.0) 05/15/16 02:25 ABG Methemoglobin 1.3 % (0.0-3.0) 05/15/16 02:25 ABG O2 Capacity 10.4 mL/dL (16-24) L 05/15/16 02:25 Kishor Test Yes 05/15/16 02:25 A-a O2 Difference 135.0 mm/Hg 05/15/16 02:25 Hgb O2 Saturation 92.7 % (95.0-98.0) L 05/15/16 02:25 FiO2 32 % 05/15/16 02:25 Crit Value Called To elmo jesus rn 05/15/16 02:25 Blood Gas Notified Time 229 05/15/16 02:25 Sodium 142 mmol/l (132-148) 05/23/16 08:35 Potassium 3.4 MMOL/L (3.6-5.0) L 05/23/16 08:35 Chloride 107 mmol/L (98-107) 05/23/16 08:35 Carbon Dioxide 22 mmol/L (22-30) 05/23/16 08:35 Anion Gap 16 (10-20) 05/23/16 08:35 BUN 34 mg/dl (9-20) H 05/23/16 08:35 Creatinine 2.6 mg/dL (0.8-1.5) H 05/23/16 08:35 Est GFR ( Amer) 29 05/23/16 08:35 Est GFR (Non-Af Amer) 24 05/23/16 08:35 POC Glucose (mg/dL) 114 mg/dL (65-110) H 05/14/16 22:19 Random Glucose 90 mg/dL (75-110) 05/23/16 08:35 Lactic Acid 0.7 MMOL/L (0.7-2.1) 05/18/16 06:00 Calcium 8.3 mg/dL (8.4-10.2) L 05/23/16 08:35 Phosphorus 5.6 mg/dl (2.5-4.5) H 05/14/16 20:20 Magnesium 1.6 MG/DL (1.6-2.3) 05/23/16 09:00 Iron < 10 ug/dL (49-181) L 05/16/16 11:04 TIBC 218 ug/dL (250-450) L 05/16/16 11:04 % Saturation 5 % (20-55) L 05/16/16 11:04 Ferritin 24.6 ng/mL 05/16/16 11:04 Total Bilirubin 0.3 mg/dl (0.2-1.3) 05/23/16 05:00 GGT 207 U/L (8-78) H 05/18/16 06:00 AST 26 U/L (17-59) 05/23/16 05:00 ALT 36 U/L (21-72) 05/23/16 05:00 Alkaline Phosphatase 175 U/L (38-126) H D 05/23/16 05:00 Total Creatine Kinase 526 U/L (55-170) H 05/15/16 01:30 Troponin I 0.0220 ng/mL (0.00-0.120) 05/13/16 13:45 Total Protein 4.6 G/DL (6.3-8.2) L 05/23/16 05:00 Albumin 2.1 g/dL (3.5-5.0) L 05/23/16 05:00 Globulin 2.5 gm/dL (2.2-3.9) 05/23/16 05:00 Albumin/Globulin Ratio 0.8 (1.0-2.1) L 05/23/16 05:00 Lipase 104 U/L (23-300) 05/13/16 13:45 Procalcitonin 0.22 NG/ML (0.19-0.49) 05/18/16 06:00 Urine Osmolality 309 mosm/kg (300-1000) 05/15/16 13:30 Ur Random Creatinine 4.9 mg/dL 05/15/16 13:30 Ur Random Sodium 150 meq/L 05/15/16 13:30 Ur Random Potassium 8.2 mmol/L 05/15/16 13:30 Stool Occult Blood Positive (NEGATIVE) H 05/16/16 04:00 C. difficile Ag & Toxin Negative (NEGATIVE) 05/14/16 06:00 Hepatitis A IgM Ab Negative (NEGATIVE) 05/15/16 11:24 Hep Bs Antigen Negative (NEGATIVE) 05/15/16 11:24 Hep Bs Antibody Negative (NEGATIVE) 05/17/16 15:02 Hep B Core IgM Ab Negative (NEGATIVE) 05/15/16 11:24 Hepatitis C Antibody Negative (NEGATIVE) 05/15/16 12:17 HIV 1&2 Antibody Screen Negative (NEGATIVE) 05/15/16 04:20 Blood Type O POSITIVE 05/16/16 11:47 Blood Type Confirm O POSITIVE 05/16/16 12:33 Antibody Screen Negative 05/16/16 11:47 Crossmatch See Detail 05/16/16 11:47 BBK History Checked No verified bt 05/16/16 11:47 Discharge Exam - Head Exam Head Exam: NORMAL INSPECTION Discharge Plan - Follow Up Plan Condition: GUARDED Disposition: HOME/ ROUTINE
[2016-05-23] MEDS ORDERED: Potassium Chloride 20 mEq/15 ml LIQ UD PO ONE (10:45)
--- NOTE | 2016-05-23 11:14 | CP.PCM.PN ---
Subjective - Date & Time of Evaluation Date of Evaluation: 05/23/16 Time of Evaluation: 08:00 - Subjective Subjective: c/o diarrhea will need colonoscopy Objective - Vital Signs/Intake and Output Vital Signs (last 24 hours): Temp Pulse Resp BP Pulse Ox 98.4 F 101 H 20 149/68 97 05/23/16 08:29 05/23/16 08:29 05/23/16 08:29 05/23/16 08:29 05/23/16 08:29 Intake and Output: 05/23/16 05/23/16 06:59 18:59 Intake Total 100 300 Output Total 850 2140 Balance -750 -1840 - Medications Medications: Current Medications Amlodipine Besylate (Norvasc) 5 mg PO DAILY [facility] Last Admin: 05/23/16 08:19 Dose: 5 mg Cholestyramine Resin (Questran) 4 gm PO DAILY [facility] Last Admin: 05/23/16 08:15 Dose: 4 gm Doxercalciferol (Hectorol) 2 mcg IV MWF [facility] Last Admin: 05/22/16 12:52 Dose: Not Given Epoetin Claudio (Procrit) 20,000 unit SC MWF [facility] Last Admin: 05/22/16 15:40 Dose: 20,000 unit Metronidazole (Flagyl 500mg/100ml Ns) 100 mls @ 100 mls/hr IVPB Q8 [facility] Last Admin: 05/23/16 08:20 Dose: 100 mls/hr Iron Sucrose 100 mg/ Sodium (Chloride) 105 mls @ 105 mls/hr IVPB DAILY [facility] Stop: 05/27/16 12:46 Last Admin: 05/22/16 15:39 Dose: 105 mls/hr Metoprolol Tartrate (Lopressor) 25 mg PO Q12 [facility] Last Admin: 05/23/16 08:17 Dose: 25 mg Pantoprazole Sodium (Protonix Ec Tab) 40 mg PO DAILY [facility] Last Admin: 05/23/16 08:18 Dose: 40 mg Tamsulosin HCl (Flomax) 0.4 mg PO DAILY [facility] Last Admin: 05/23/16 08:19 Dose: 0.4 mg Vitamin B Complex/Vit C/Folic Acid (Nephro-Leisa) 1 tab PO DAILY [facility] Last Admin: 05/23/16 08:15 Dose: 1 tab - Labs Labs: 05/23/16 05:00 05/23/16 08:35 PT 11.8 SECONDS (9.6-11.2) H 05/15/16 11:07 INR 1.13 (0.92-1.08) H 05/15/16 11:07 APTT 37.5 SECONDS (23.3-32.5) H 05/15/16 11:07 Assessment and Plan (1) Dehydration Status: Acute (2) Pancolitis Status: Acute (3) Renal insufficiency Status: Acute (4) Hypovolemia dehydration Status: Acute
[2016-05-23 12:47] LABS: EOSINOPHIL 3 % (0-7); MYELOCYTE 2 % (0-0); NEUTROPHIL 82 % (42-75); REACTIVE LYMPHOCYTES 4 % (0-0); TOTAL CELLS COUNTED 100
[2016-05-23 16:57] VITALS: BP 130/72; PULSE 70; TEMP 98.7; O2SAT 100
--- NOTE | 2016-05-24 01:35 | PN ---
DATE: 05/23/2016 LOCATION: The patient is located in room 667, bed 1. REQUESTED BY: Dr. Miguel Rodríguez. REASON FOR FOLLOWUP: Acute renal failure and for further evaluation. HISTORY OF PRESENT ILLNESS: The patient is a 75-year-old elderly male with a history of hypertension, mild dementia and myasthenia gravis, who was admitted with severe profuse diarrhea, watery, dizziness and weakness and near syncope with acute renal failure, metabolic acidosis, and hyperkalemia and anuria requiring initiation of the hemodialysis, status post HD x 3. The patient is out of bed to chair and feeling much better, not in acute distress, no chest pain, no palpitations, no fever, no cough, no abdominal pain, no nausea , vomiting, diarrhea. PHYSICAL EXAMINATION: VITAL SIGNS: This morning, blood pressure 138/64, pulse 103, respiration 20, temperature 98.4, saturation 97%, height 6 feet 1 inch and weight is 201 pounds. GENERAL: The patient is an 75-year-old elderly male, well-built, well -nourished, not in acute distress. HEENT: Pupils normal, reactive to light and accommodation. Conjunctivae pink. Sclerae anicteric. Tongue is moist. NECK: Trachea midline. LUNGS: Symmetric on both sides. Bilateral breath sounds present. Clear on auscultation. CARDIOVASCULAR: [place] in the fifth intercostal space midclavicular line. S1 and S2 audible. No murmur or gallop. ABDOMEN: Normal in appearance. Soft, tympanic. No guarding, no rigidity. No hepatosplenomegaly. CENTRAL NERVOUS SYSTEM: The patient is alert, awake, oriented x 2-3. Sensory and motor system is grossly within normal limits. Cranial nerves II-XII grossly intact. EXTREMITIES: No cyanosis, no clubbing. The patient has 1+ edema in both lower extremities. CURRENT MEDICATIONS: Include as follows: Flagyl 500 mg IV piggyback q. 8 hours , Flomax 0.4 mg p.o. daily, Venofer 100 mg daily, K-Dur 40 mEq p.o. x 1 and Lopressor 25 mg p.o. q. 12 hours, Nephro-Leisa 1 tablet daily, Norvasc 5 mg daily , Protonix 40 mg p.o. daily and Questran 4 g p.o. daily. LABORATORY DATA: Include as follows: As of 05/23/2016, WBC 8.4, hemoglobin 9.1 , hematocrit is 28.4, MCV 71.1 and platelets 323, neutrophils 82, lymphs 5 and reactive lymph is 4 and monocytes 4, eosinophils 3, myelocytes 2. As of 2016 at 5:00 a.m., sodium 142, potassium 3.4, BUN and creatinine 23/2.8 and total protein 4.6, albumin is 2.1. As of 05/23/2016 at 8:35 a.m., sodium 142, potassium 3.4, chloride 107, CO2 22, BUN 34, creatinine 2.6, glucose 90, calcium 8.3. SUMMARY: The patient is a 75-year-old elderly male with a history of hypertension, myasthenia gravis, mild dementia who was admitted with acute renal failure, status post hemodialysis x 3 with a good urine output. IMPRESSION AND PLAN: 1. Acute renal failure. Renal function is slowly improving off hemodialysis this week. Now, serum creatinine is 2.6-2.8. Continue to hold hemodialysis and will recommend to remove the right ijv Braxton catheter and continue to monitor BMP daily. 2. Anemia secondary to renal failure and iron deficiency. Continue Epogen and Procrit. 3. Hypertension. Blood pressure is stable. Continue metoprolol and Norvasc and titrate as needed. Discussed with nurse practitioner in rounds. Will follow with you. Thank you for allowing me to participate in your patient's care. The patient can be transferred to subacute rehab from the renal standpoint and will give KCl 40 mEq p.o. x 1 for hypokalemia and also will check the magnesium level. Kwaku Allison MD cc: [id number] TT: 05/24/2016 01:35:20 Confirmation # [id number] Dictation # [id number] roland CAMPBELL
--- NOTE | 2016-05-25 10:51 | VASCULAR ---
Removal of right-sided non tunneled dialysis catheter History: Renal failure. Procedure and findings: A paper roll machine operator image of the right-sided tunneled HD catheter was obtained. The right neck was then prepped and draped in the usual sterile techniques. The skin sutures were cut and the HD catheter was removed. Compression over the venotomy site in the right IJV was performed to achieve hemostasis. A sterile dressing was placed over the tunneling site in the right upper chest. A fluoroscopic image demonstrating removal of the catheter was obtained. Impression: Successful removal of right-sided non tunneled dialysis catheter.
== END 2016-05-23 18:24 | DRG 385 ==
LOC: H.ER 13:10 → H.ERHOLD 17:00 → H.TEL 21:04 → H.ICU/CCU 05-14 23:40 → H.MEDSURG1 05-19 18:26
PROVIDERS: ADMIT Family Medicine; ATTEND Family Medicine
PROC: 05HM33Z Insertion of Infusion Device into Right Internal Jugular Vein, Percutaneous Approach (ICD-10-PCS; 2016-05-15)
PROC: 3E0234Z Introduction of Serum, Toxoid and Vaccine into Muscle, Percutaneous Approach (ICD-10-PCS; principal; 2016-05-16)
PROC: 5A1D60Z (ICD-10-PCS; 2016-05-16)
DX: K51.00 Ulcerative (chronic) pancolitis without complications (principal); N17.0 Acute kidney failure with tubular necrosis; E87.2 Acidosis; K52.1 Toxic gastroenteritis and colitis; K59.31 Toxic megacolon; F03.90 Unspecified dementia, unspecified severity, without behavioral disturbance, psychotic disturbance, mood disturbance, and anxiety; G70.00 Myasthenia gravis without (acute) exacerbation; E87.5 Hyperkalemia; E86.0 Dehydration; D50.9 Iron deficiency anemia, unspecified; E86.1 Hypovolemia; E87.6 Hypokalemia; Z23 Encounter for immunization; N40.0 Benign prostatic hyperplasia without lower urinary tract symptoms; I10 Essential (primary) hypertension; K29.70 Gastritis, unspecified, without bleeding; R79.89 Other specified abnormal findings of blood chemistry; I49.3 Ventricular premature depolarization; D63.1 Anemia in chronic kidney disease; A08.4 Viral intestinal infection, unspecified

== ENCOUNTER 2016-05-23 15:04 | Inpatient (IN) | payer OTHER, MEDICARE ==
[2016-05-23 18:33] VITALS: BMI 27.1
[2016-05-23 20:21] VITALS: RESP 20
[2016-05-24] MEDS ORDERED: metroNIDAZOLE 500mg/100ml NS IVPB SCH (01:00)
[2016-05-24 06:49] LABS: HEMATOCRIT 26.8 % (35.0-51.0); MEAN CELL VOLUME 71.6 fl (80.0-94.0); MEAN CORPUSCULAR HGB CONC 32.1 g/dL (33.0-37.0); RED CELL DISTRIBUTION WIDTH 18.9 % (11.5-14.5); WHITE BLOOD COUNT 9.9 K/uL (4.8-10.8)
[2016-05-24 06:57] LABS: BILIRUBIN,TOTAL 0.2 mg/dl (0.2-1.3); CALCIUM 7.8 mg/dL (8.4-10.2); POTASSIUM 3.3 MMOL/L (3.6-5.0); TOTAL PROTEIN 4.6 G/DL (6.3-8.2)
[2016-05-24 07:08] LABS: ALB/GLOB RATIO 0.8 (1.0-2.1)
--- NOTE | 2016-05-24 08:23 | CP.PCM.HP ---
History of Present Illness - History of Present Illness History of Present Illness: This is a 75 y/o male admitted for physical debility and gait dysfunction after being hospitalized for acute renal failure. Tao acosta was doing well till he had multiple episodes of vomiting and diarrhea few hours after having lunch in a restaurant. He was admitted for severe dehydration and acute renal failure necessitating hemodialysis. His GFR went down to about 10 and creatinine went up to 6 . He was noted to have severe megacolon( toxic) and pancolitis . Stool exams were so far negative for any bacterial growth. He started putting out urine few days ago and progressively noted improvement of renal function. He was evaluated for Phys therapy and suggested subacute rehab. He received two units of PRBC while he was in the medical floor and was maintained on Epogen and venofer. He had an episode of urinary retention after alford cath was removed. Medical Hx HTN renal insufficiency hyperlipidemia mild dementia and BPH. He also noted to have elevated PSA. Present on Admission - Present on Admission Any Indicators Present on Admission: No History of DVT/PE: No History of Uncontrolled Diabetes: No Urinary Catheter: No Decubitus Ulcer Present: No Review of Systems - Genitourinary Genitourinary: Difficulty Urinating, Nocturia - Neurological Neurological: Memory Loss Past Patient History - Past Medical History & Family History Past Medical History?: Yes - Past Social History Smoking Status: Never Smoked - CARDIAC Hx Hypertension: Yes - PULMONARY Hx Respiratory Disorders: No - NEUROLOGICAL Hx Neurological Disorder: No - HEENT Hx HEENT Problems: Yes Other/Comment: uses eye glasses - RENAL Hx Chronic Kidney Disease: No - ENDOCRINE/METABOLIC Hx Endocrine Disorders: Yes Other/Comment: Hx Myasthenia Gravis - HEMATOLOGICAL/ONCOLOGICAL Hx Blood Disorders: No - INTEGUMENTARY Hx Dermatological Problems: No - MUSCULOSKELETAL/RHEUMATOLOGICAL Hx Musculoskeletal Disorders: No Hx Falls: No - GASTROINTESTINAL Hx Diverticulitis: Yes - GENITOURINARY/GYNECOLOGICAL Hx Genitourinary Disorders: No - PSYCHIATRIC Hx Psychophysiologic Disorder: No Hx Substance Use: No - SURGICAL HISTORY Hx Surgeries: No - ANESTHESIA Hx Anesthesia: No Has any member of the family had a problem w/ anesthesia?: No Meds Allergies/Adverse Reactions: Allergies Allergy/AdvReac Type Severity Reaction Status Date / Time No Known Allergies Allergy Verified 05/13/16 13:12 Physical Exam - Head Exam Head Exam: NORMAL INSPECTION - Eye Exam Eye Exam: Normal appearance - ENT Exam ENT Exam: Mucous Membranes Moist - Respiratory Exam Respiratory Exam: Clear to Auscultation Bilateral - GI/Abdominal Exam GI & Abdominal Exam: Normal Bowel Sounds - Extremities Exam Additional comments: leg edema bilateral - Neurological Exam Neurological exam: CN II-XII Intact, Oriented x3 - Psychiatric Exam Psychiatric exam: Normal Mood Results - Vital Signs Recent Vital Signs: Last Vital Signs Temp 97.9 F 05/24/16 08:13 Pulse 101 H 05/24/16 08:13 Resp 20 05/24/16 08:13 BP 125/68 05/24/16 08:13 Pulse Ox 96 05/24/16 08:13 - Labs Result Diagrams: 05/24/16 04:45 05/24/16 04:45 Labs: Laboratory Results - last 24 hr 05/24/16 04:45 WBC 9.9 RBC 3.75 L Hgb 8.6 L Hct 26.8 L MCV 71.6 L MCH 23.0 L MCHC 32.1 L RDW 18.9 H Plt Count 357 Sodium 143 Potassium 3.3 L Chloride 110 H Carbon Dioxide 21 L Anion Gap 15 BUN 22 H Creatinine 2.1 H Est GFR ( Amer) 38 Est GFR (Non-Af Amer) 31 Random Glucose 89 Calcium 7.8 L Total Bilirubin 0.2 AST 20 ALT 30 Alkaline Phosphatase 145 H Total Protein 4.6 L Albumin 2.1 L Globulin 2.5 Albumin/Globulin Ratio 0.8 L Assessment & Plan (1) Acute renal failure Status: Acute (2) Dehydration Status: Acute (3) HTN (hypertension) Status: Acute (4) Pancolitis Status: Acute (5) Toxic dilatation of colon Status: Acute (6) Physical debility Status: Acute (7) Gait instability Status: Acute (8) Leg edema Status: Acute - Assessment and Plan (Free Text) Plan: start Phys therapy recheck labs Is and O's encouraged increase po fluids check anemia thyroid cmp tcompression sockings
[2016-05-24] MEDS: Metoprolol Succinate 100 mg XL Tab PO SCH (08:33)
[2016-05-24] MEDS: Cholestyramine 4 gm/Pkt UD PO SCH (08:35)
[2016-05-24] MEDS: Pantoprazole 40 mg EC Tab PO SCH (08:35)
[2016-05-24] MEDS: metroNIDAZOLE 500mg/100ml NS 100 ML IVPB SCH ×2 (08:38→17:19)
[2016-05-24] MEDS ORDERED: DONEPEZIL HCL PO SCH (09:00)
[2016-05-24] MEDS ORDERED: MEMANTINE HCL PO SCH (09:00)
[2016-05-24] MEDS ORDERED: Patient's Own Med (Iron Sucrose Complex [Venofer] 100 MG) IV SCH (09:00)
[2016-05-24] MEDS: EPOETIN ALFA 10,000 UNIT/ML ML SC SCH (09:57)
[2016-05-24 11:21] LABS: BASO # 0.1 K/uL (0.0-0.2); BASO % 0.8 % (0.0-2.0); EOS # 0.2 K/uL (0.0-0.7); EOS % 1.6 % (0.0-4.0); HEMATOCRIT 27.4 % (35.0-51.0); LYMPH # 0.9 K/uL (1.0-4.3); LYMPH % 8.2 % (20.0-40.0); MEAN CELL VOLUME 71.3 fl (80.0-94.0); MEAN CORPUSCULAR HGB CONC 32.2 g/dL (33.0-37.0); MEAN PLATELET VOLUME 8.2 fl (7.2-11.7); MONO # 0.7 K/uL (0.0-0.8); MONO % 6.4 % (0.0-10.0); RED CELL DISTRIBUTION WIDTH 18.6 % (11.5-14.5); WHITE BLOOD COUNT 10.9 K/uL (4.8-10.8)
[2016-05-24 11:31] LABS: POTASSIUM 3.5 MMOL/L (3.6-5.0)
[2016-05-24 11:33] LABS: BILIRUBIN,TOTAL 0.3 mg/dl (0.2-1.3)
[2016-05-24 11:34] LABS: ALB/GLOB RATIO 0.9 (1.0-2.1); CALCIUM 7.9 mg/dL (8.4-10.2); TOTAL PROTEIN 4.9 G/DL (6.3-8.2)
[2016-05-24 12:16] LABS: THYROID STIMULATING HORMONE 6.69 mIU/ML (0.46-4.68)
[2016-05-24] MEDS: MEMANTINE HCL PO SCH (17:20)
[2016-05-24] MEDS: DONEPEZIL HCL PO SCH (17:20)
[2016-05-25] MEDS: metroNIDAZOLE 500mg/100ml NS 100 ML IVPB SCH ×3 (00:12→17:42)
[2016-05-25] MEDS: DONEPEZIL HCL PO SCH (08:19)
[2016-05-25] MEDS: MEMANTINE HCL PO SCH (08:19)
[2016-05-25] MEDS: Pantoprazole 40 mg EC Tab PO SCH (08:20)
[2016-05-25] MEDS: Metoprolol Succinate 100 mg XL Tab PO SCH (08:21)
[2016-05-25] MEDS: Cholestyramine 4 gm/Pkt UD PO SCH (08:21)
--- NOTE | 2016-05-25 09:12 | CP.PCM.PN ---
Subjective - Date & Time of Evaluation Date of Evaluation: 05/25/16 Time of Evaluation: 09:07 - Subjective Subjective: patient remains stable but noted elevated IA BP is stable Noted improvement of BUN and creatinine Doing well with PT Objective - Vital Signs/Intake and Output Vital Signs (last 24 hours): Temp Pulse Resp BP Pulse Ox 98.1 F 103 H 20 137/80 98 05/25/16 07:54 05/25/16 08:21 05/25/16 07:54 05/25/16 08:21 05/25/16 07:54 Intake and Output: 05/25/16 05/25/16 06:59 18:59 Intake Total 400 Output Total 710 Balance -310 - Medications Medications: Current Medications Aspirin (Aspirin Chewable) 81 mg PO DAILY [facility] Last Admin: 05/25/16 08:16 Dose: 81 mg Cholestyramine Resin (Questran) 4 gm PO DAILY [facility] Last Admin: 05/25/16 08:21 Dose: 4 gm Epoetin Claudio (Procrit) 10,000 unit SC MWF [facility] Last Admin: 05/24/16 09:57 Dose: 10,000 unit Home Med (Memantine Hcl/Donepezil Hcl [Namzaric 28 Mg-10 Mg Capsule]) 10 mg PO DAILY [facility] Last Admin: 05/25/16 08:19 Dose: 10 mg Home Med (Rosuvastatin Calcium [Crestor]) 5 mg PO DAILY [facility] Last Admin: 05/25/16 08:21 Dose: 5 mg Iron Sucrose 100 mg/ Sodium (Chloride) 105 mls @ 105 mls/hr IV DAILY [facility] Last Admin: 05/24/16 11:32 Dose: 105 mls/hr Metronidazole (Flagyl 500mg/100ml Ns) 100 mls @ 100 mls/hr IVPB Q8 [facility] Last Admin: 05/25/16 08:17 Dose: 100 mls/hr Metoprolol Succinate (Toprol Xl) 100 mg PO DAILY [facility] Last Admin: 05/25/16 08:21 Dose: 100 mg Pantoprazole Sodium (Protonix Ec Tab) 40 mg PO DAILY [facility] Last Admin: 05/25/16 08:20 Dose: 40 mg Prednisone (Prednisone Tab) 10 mg PO DAILY [facility] Last Admin: 05/25/16 08:20 Dose: 10 mg Pyridostigmine [place] (Mestinon Tab) 60 mg PO QID [facility] Last Admin: 05/25/16 08:19 Dose: 60 mg Tamsulosin HCl (Flomax) 0.4 mg PO DAILY [facility] Last Admin: 05/25/16 08:18 Dose: 0.4 mg - Labs Labs: 05/24/16 11:07 05/24/16 11:07 - Head Exam Head Exam: NORMAL INSPECTION - Eye Exam Eye Exam: Normal appearance - ENT Exam ENT Exam: Mucous Membranes Moist - Respiratory Exam Respiratory Exam: Clear to Ausculation Bilateral - Cardiovascular Exam Cardiovascular Exam: REGULAR RHYTHM - Neurological Exam Neurological Exam: CN II-XII Intact, Oriented x3 - Psychiatric Exam Psychiatric exam: Normal Mood Assessment and Plan (1) Acute renal failure Status: Acute (2) Dehydration Status: Acute (3) HTN (hypertension) Status: Acute (4) Pancolitis Status: Acute (5) Toxic dilatation of colon Status: Acute (6) Physical debility Status: Acute (7) Gait instability Status: Acute (8) Leg edema Status: Acute (9) Myasthenia gravis Status: Acute - Assessment and Plan (Free Text) Plan: Cont meds Cont encourage increase fluids recheck BMP and cbc on sunday Increase metoprolol to 100 bid continue iron cont c
[2016-05-26] MEDS: metroNIDAZOLE 500mg/100ml NS 100 ML IVPB SCH ×4 (00:58→22:00)
[2016-05-26] MEDS: Cholestyramine 4 gm/Pkt UD PO SCH (08:32)
[2016-05-26] MEDS: Pantoprazole 40 mg EC Tab PO SCH (08:32)
[2016-05-26] MEDS: DONEPEZIL HCL PO SCH (08:39)
[2016-05-26] MEDS: MEMANTINE HCL PO SCH (08:39)
[2016-05-26] MEDS: EPOETIN ALFA 10,000 UNIT/ML ML SC SCH (08:39)
--- NOTE | 2016-05-26 09:36 | PN ---
DATE: 05/26/2016 The patient seen and examined. The patient seen for Dr. Rodríguez while he is away. The patient feels okay, still complains of diarrhea about 4-6 times a day. No nausea, no vomiting, able to eat food. No chest pain or shortness of breath. PHYSICAL EXAMINATION: GENERAL: The patient is in no acute distress. VITAL SIGNS: Stable. HEART: S1, S2 normal, regular. LUNGS: Good bilateral air entry. ABDOMEN: Soft, nontender. No organomegaly, no fluid. Bowel sounds are plus. No sign of acute abdo men. No guarding, no rigidity, no rebound. EXTREMITIES: No edema, no calf swelling, no tenderness, no acute ischemia. CENTRAL NERVOUS SYSTEM: Essentially unchanged. DIAGNOSTIC DATA: Available reviewed. Overall, patient still complains of diarrhea, but overall, patient is improving. Able to ambulate wi th walker, doing his ADLs on his own. PLAN: As ordered. Gareth Anderson MD cc: [id number] TT: 05/26/2016 09:35:44 Confirmation # [id number] Dictation # [id number] en
--- NOTE | 2016-05-26 14:45 | CP.PCM.CON ---
History of Present Illness - History of Present Illness History of Present Illness: IMPROVING SLOWLY RX IN PROGRESS 75 y/o male admitted after being hospitalized for acute renal failure after recent gastrointestinal illness with severe diarrhea all cultures remain negative renal function improving encouraged to have out pt gi follow up for colonoscopy Medical Hx HTN renal insufficiency hyperlipidemia mild dementia and BPH. He also noted to have elevated PSA. Review of Systems - Constitutional Constitutional: absent: As Per HPI, Anorexia, Chills, Daytime Sleepiness, Excessive Sweating, Fatigue, Fever, Frequent Falls, Headache, Increased Appetite , Lethargy, Malaise, Night Sweats, Snoring, Sleep Apnea, Weight Gain, Weight Loss, Weakness, Other - EENT Eyes: absent: As Per HPI, Blind Spots, Blurred Vision, Change in Vision, Decreased Night Vision, Diplopia, Discharge, Dry Eye, Exophthalmos, Floaters, Irritation, Itchy Eyes, Loss of Peripheral Vision, Pain, Photophobia, Requires Corrective Lenses, Sees Flashes, Spots in Vision, Tunnel Vision, Other Visual Disturbances, Loss of Vision, Other Ears: absent: As Per HPI, Decreased Hearing, Ear Discharge, Ear Pain, Tinnitus, Abnormal Hearing, Disequilibrium, Dizziness, Other Nose/Mouth/Throat: absent: As Per HPI, Epistaxis, Nasal Congestion, Nasal Discharge, Nasal Obstruction, Nasal Trauma, Nose Pain, Post Nasal Drip, Sinus Pain, Sinus Pressure, Bleeding Gums, Change in Voice, Dental Pain, Dry Mouth, Dysphagia, Halitosis, Hoarsness, Lip Swelling, Mouth Lesions, Mouth Pain, Odynophagia, Sore Throat, Throat Swelling, Tongue Swelling, Facial Pain, Neck Pain, Neck Mass, Other - Cardiovascular Cardiovascular: absent: As Per HPI, Acrocyanosis, Chest Pain, Chest Pain at Rest , Chest Pain with Activity, Claudication, Diaphoresis, Dyspnea, Dyspnea on Exertion, Edema, Irregular Heart Rhythm, Pain Radiating to Arm/Neck/Jaw, Leg Edema, Leg Ulcers, Lightheadedness, Orthopnea, Palpitations, Paroxysmal Nocturnal Dyspnea, Pedal Edema, Radiating Pain, Rapid Heart Rate, Slow Heart Rate, Syncope, Other - Gastrointestinal Gastrointestinal: As Per HPI - Genitourinary Genitourinary: absent: As Per HPI, Change in Urinary Stream, Difficulty Urinating, Dysuria, Flank Pain, Hematuria, Pyuria, Nocturia, Urinary Incontinence, Urinary Frequency, Urinary Hesitance, Urinary Urgency, Voiding Freq/Small Amts, Freq UTI, Hx Renal/Bladder Calculi, Hx /Renal Surgery, Bladder Distension, Other - Musculoskeletal Musculoskeletal: absent: As Per HPI, Abnormal Gait, Arthralgias, Atrophy, Back Pain, Deformity, Joint Swelling, Limited Range of Motion, Loss of Height, Muscle Cramps, Muscle Weakness, Myalgias, Neck Pain, Numbness, Radiating Pain into Limb, Stiffness, Tingling, Other - Integumentary Integumentary: absent: As Per HPI, Acne, Alopecia, Bleeding Lesions, Change in Hair, Change in Nails, Change in Pigmentation, Changing Lesions, Dry Skin, Erythema, Furuncle, Hirsutism, Lesions, New Lesions, Non-Healing Lesions, Photosensitivity, Pruritus, Rash, Skin Pain, Skin Ulcer, Sores, Striae, Swelling , Unusual Bruising, Wounds, Jaundice, Other - Neurological Neurological: absent: As Per HPI, Abnormal Gait, Abnormal Hearing, Abnormal Movements, Abnormal Speech, Behavioral Changes, Burning Sensations, Confusion, Convulsions, Disequilibrium, Dizziness, Numbness, Focal Weakness, Frequent Falls , Headaches, Lack of Coordination, Loss of Vision, Memory Loss, Paresthesias, Radicular Pain, Restless Legs, Sensory Deficit, Syncope, Tingling, Tremor, Vertigo, Weakness, Other Visual Disturbances, Other - Psychiatric Psychiatric: absent: As Per HPI, Abnormal Sleep Pattern, Anhedonia, Anxiety, Auditory Hallucinations, Behavioral Changes, Change in Appetite, Change in Libido, Confusion, Depression, Difficulty Concentrating, Hallucinations, Homicidal Ideation, Hopelessness, Irritability, Memory Loss, Mood Swings, Panic Attacks, Paranoia, Suicidal Ideation, Visual Hallucinations, Tactile Hallucinations, Other Past Patient History - Past Medical History & Family History Past Medical History?: Yes - Past Social History Smoking Status: Never Smoked - CARDIAC Hx Hypertension: Yes - PULMONARY Hx Respiratory Disorders: No - NEUROLOGICAL Hx Neurological Disorder: No - HEENT Hx HEENT Problems: Yes Other/Comment: uses eye glasses - RENAL Hx Chronic Kidney Disease: No - ENDOCRINE/METABOLIC Hx Endocrine Disorders: Yes Other/Comment: Hx Myasthenia Gravis - HEMATOLOGICAL/ONCOLOGICAL Hx Blood Disorders: No - INTEGUMENTARY Hx Dermatological Problems: No - MUSCULOSKELETAL/RHEUMATOLOGICAL Hx Musculoskeletal Disorders: No Hx Falls: No - GASTROINTESTINAL Hx Diverticulitis: Yes - GENITOURINARY/GYNECOLOGICAL Hx Genitourinary Disorders: No - PSYCHIATRIC Hx Psychophysiologic Disorder: No Hx Substance Use: No - SURGICAL HISTORY Hx Surgeries: No - ANESTHESIA Hx Anesthesia: No Has any member of the family had a problem w/ anesthesia?: No Meds Allergies/Adverse Reactions: Allergies Allergy/AdvReac Type Severity Reaction Status Date / Time No Known Allergies Allergy Verified 05/13/16 13:12 - Medications Medications: Current Medications Aspirin (Aspirin Chewable) 81 mg PO DAILY [facility] Last Admin: 05/26/16 08:32 Dose: 81 mg Cholestyramine Resin (Questran) 4 gm PO DAILY [facility] Last Admin: 05/26/16 08:32 Dose: 4 gm Epoetin Claudio (Procrit) 10,000 unit SC MWF [facility] Last Admin: 05/26/16 08:39 Dose: 10,000 unit Home Med (Memantine Hcl/Donepezil Hcl [Namzaric 28 Mg-10 Mg Capsule]) 10 mg PO DAILY [facility] Last Admin: 05/26/16 08:39 Dose: 10 mg Home Med (Rosuvastatin Calcium [Crestor]) 5 mg PO DAILY [facility] Last Admin: 05/26/16 08:31 Dose: 5 mg Iron Sucrose 100 mg/ Sodium (Chloride) 105 mls @ 105 mls/hr IV DAILY [facility] Last Admin: 05/26/16 13:01 Dose: 105 mls/hr Metronidazole (Flagyl 500mg/100ml Ns) 100 mls @ 100 mls/hr IVPB Q8@0500,1400, 2200 [facility] Metoprolol Tartrate (Lopressor) 100 mg PO Q12 [facility] Last Admin: 05/26/16 08:31 Dose: 100 mg Pantoprazole Sodium (Protonix Ec Tab) 40 mg PO DAILY [facility] Last Admin: 05/26/16 08:32 Dose: 40 mg Prednisone (Prednisone Tab) 10 mg PO DAILY [facility] Last Admin: 05/26/16 08:32 Dose: 10 mg Pyridostigmine [place] (Mestinon Tab) 60 mg PO QID [facility] Last Admin: 05/26/16 13:02 Dose: 60 mg Tamsulosin HCl (Flomax) 0.4 mg PO DAILY [facility] Last Admin: 05/26/16 08:32 Dose: 0.4 mg Physical Exam - Constitutional Appears: Non-toxic, Confused, Cachectic, Chronically Ill - Head Exam Head Exam: ATRAUMATIC, NORMAL INSPECTION, NORMOCEPHALIC - Eye Exam Eye Exam: PERRL. absent: Scleral icterus - ENT Exam ENT Exam: Mucous Membranes Dry - Neck Exam Neck exam: Negative for: Lymphadenopathy - Respiratory Exam Respiratory Exam: Decreased Breath Sounds, Rhonchi - Cardiovascular Exam Cardiovascular Exam: REGULAR RHYTHM, +S1, +S2 - GI/Abdominal Exam GI & Abdominal Exam: Diminished Bowel Sounds - Rectal Exam Rectal Exam: Deferred - Exam Exam: NORMAL INSPECTION - Extremities Exam Extremities exam: Positive for: pedal pulses present. Negative for: calf tenderness, pedal edema, tenderness - Back Exam Back exam: absent: CVA tenderness (L), CVA tenderness (R) - Neurological Exam Neurological exam: Alert, CN II-XII Intact, Oriented x3, Reflexes Normal - Psychiatric Exam Psychiatric exam: Normal Mood - Skin Skin Exam: Dry, Intact Results - Vital Signs Recent Vital Signs: Last Vital Signs Temp 97.7 F 05/26/16 09:00 Pulse 80 05/26/16 09:00 Resp 20 05/26/16 09:00 BP 126/64 05/26/16 09:00 Pulse Ox 100 05/26/16 09:00 - Labs Result Diagrams: 05/24/16 11:07 05/24/16 11:07 Assessment & Plan (1) Gait instability Status: Acute (2) Leg edema Status: Acute (3) Myasthenia gravis Status: Acute (4) Physical debility Status: Acute (5) Acute renal failure Status: Acute (6) Anemia Status: Acute (7) Dehydration Status: Acute (8) Gastroenteritis and colitis, viral Status: Acute - Assessment and Plan (Free Text) Assessment: observe off antibiotics for now 'gi follow up
[2016-05-27] MEDS: metroNIDAZOLE 500mg/100ml NS 100 ML IVPB SCH ×3 (05:52→21:26)
--- NOTE | 2016-05-27 07:49 | PN ---
DATE: 05/27/2016 The patient seen and examined. Interim events noted. Consults noted, appreciated. Infectious disea se followup and intervention noted and appreciated. The patient remains in transitional care unit. The patient complains of frequency of stool, but seems to be getting better. No chest pain or shortn ess of breath. PHYSICAL EXAMINATION: GENERAL: The patient is in no acute distress. VITAL SIGNS: Stable. HEART: S1, S2 normal, regular. LUNGS: Good bilateral air entry. ABDOMEN: Soft, nontender. No organomegaly, no bruit. Bowel sounds are present. No guarding, no ri gidity, no rebound. EXTREMITIES: No edema, no tenderness. No acute ischemia. CENTRAL NERVOUS SYSTEM: Essentially unchanged. DIAGNOSTIC DATA: Available diagnostic data reviewed. Overall, patient's general medical condition is stable. PLAN: As ordered. Gareth Anderson MD cc: [id number] TT: 05/27/2016 07:48:59 Confirmation # [id number] Dictation # [id number] rosalinda
[2016-05-27] MEDS: Pantoprazole 40 mg EC Tab PO SCH (09:27)
[2016-05-27] MEDS: DONEPEZIL HCL PO SCH (09:28)
[2016-05-27] MEDS: MEMANTINE HCL PO SCH (09:28)
[2016-05-27] MEDS: Cholestyramine 4 gm/Pkt UD PO SCH (10:00)
[2016-05-28] MEDS: metroNIDAZOLE 500mg/100ml NS 100 ML IVPB SCH ×3 (05:07→21:11)
[2016-05-28 08:38] LABS: HEMATOCRIT 27.5 % (35.0-51.0); MEAN CORPUSCULAR HEMOGLOBIN 23.6 pg (27.0-31.0); MEAN CORPUSCULAR HGB CONC 31.8 g/dL (33.0-37.0); RED CELL DISTRIBUTION WIDTH 20.6 % (11.5-14.5); WHITE BLOOD COUNT 9.2 K/uL (4.8-10.8)
[2016-05-28] MEDS: MEMANTINE HCL PO SCH (08:40)
[2016-05-28] MEDS: DONEPEZIL HCL PO SCH (08:40)
[2016-05-28] MEDS: Pantoprazole 40 mg EC Tab PO SCH (08:41)
[2016-05-28] MEDS: Cholestyramine 4 gm/Pkt UD PO SCH (08:41)
[2016-05-28 08:44] LABS: MEAN CELL VOLUME 74.2 fl (80.0-94.0)
[2016-05-28 09:06] LABS: ALB/GLOB RATIO 0.9 (1.0-2.1); BILIRUBIN,TOTAL 0.2 mg/dl (0.2-1.3); CALCIUM 7.9 mg/dL (8.4-10.2); POTASSIUM 3.3 MMOL/L (3.6-5.0); TOTAL PROTEIN 4.7 G/DL (6.3-8.2)
--- NOTE | 2016-05-28 13:00 | CP.PCM.PN ---
Subjective - Date & Time of Evaluation Date of Evaluation: 05/28/16 Time of Evaluation: 09:00 - Subjective Subjective: DOING WELL ALL CULTURES NEGATIVE AFEBRILE NAD DIARRHEA RESOLVED NEEDS OUT PT COLONOSCOPY Objective - Vital Signs/Intake and Output Vital Signs (last 24 hours): Temp Pulse Resp BP Pulse Ox 97.9 F 81 20 140/74 97 05/28/16 08:07 05/28/16 08:40 05/28/16 08:07 05/28/16 08:40 05/28/16 08:07 - Medications Medications: Current Medications Aspirin (Aspirin Chewable) 81 mg PO DAILY [facility] Last Admin: 05/28/16 08:40 Dose: 81 mg Cholestyramine Resin (Questran) 4 gm PO DAILY [facility] Last Admin: 05/28/16 08:41 Dose: 4 gm Epoetin Claudio (Procrit) 10,000 unit SC MWF [facility] Last Admin: 05/26/16 08:39 Dose: 10,000 unit Home Med (Memantine Hcl/Donepezil Hcl [Namzaric 28 Mg-10 Mg Capsule]) 10 mg PO DAILY [facility] Last Admin: 05/28/16 08:40 Dose: 10 mg Home Med (Rosuvastatin Calcium [Crestor]) 5 mg PO DAILY [facility] Last Admin: 05/28/16 08:41 Dose: 5 mg Iron Sucrose 100 mg/ Sodium (Chloride) 105 mls @ 105 mls/hr IV DAILY [facility] Last Admin: 05/28/16 08:44 Dose: 105 mls/hr Metronidazole (Flagyl 500mg/100ml Ns) 100 mls @ 100 mls/hr IVPB Q8@0500,1400, 2200 [facility] Last Admin: 05/28/16 05:07 Dose: 100 mls/hr Metoprolol Tartrate (Lopressor) 100 mg PO Q12 [facility] Last Admin: 05/28/16 08:40 Dose: 100 mg Pantoprazole Sodium (Protonix Ec Tab) 40 mg PO DAILY [facility] Last Admin: 05/28/16 08:41 Dose: 40 mg Prednisone (Prednisone Tab) 10 mg PO DAILY [facility] Last Admin: 05/28/16 08:40 Dose: 10 mg Pyridostigmine [place] (Mestinon Tab) 60 mg PO QID [facility] Last Admin: 05/28/16 08:40 Dose: 60 mg Tamsulosin HCl (Flomax) 0.4 mg PO DAILY [facility] Last Admin: 05/28/16 08:41 Dose: 0.4 mg - Labs Labs: 05/28/16 07:15 05/28/16 07:15 Assessment and Plan (1) Gait instability Status: Acute (2) Leg edema Status: Acute (3) Myasthenia gravis Status: Acute (4) Physical debility Status: Acute (5) Acute renal failure Status: Acute (6) Anemia Status: Acute (7) Dehydration Status: Acute (8) Gastroenteritis and colitis, viral Status: Acute
[2016-05-29] MEDS: metroNIDAZOLE 500mg/100ml NS 100 ML IVPB SCH ×3 (04:26→21:25)
--- NOTE | 2016-05-29 05:36 | PN ---
DATE: 05/28/2016 The patient is seen and examined. Interim events noted. The patient remains in transitional care un it. The patient feels a little better. Diarrhea is improving. No chest pain, no shortness of breat h or abdominal pain. PHYSICAL EXAMINATION: GENERAL: The patient is in no acute distress. VITAL SIGNS: Stable. HEART: S1, S2 normal, regular. LUNGS: Good bilateral air entry. ABDOMEN: Soft, nontender. EXTREMITIES: No edema, no calf swelling, no tenderness, no acute ischemia. CENTRAL NERVOUS SYSTEM: Essentially unchanged. DIAGNOSTIC DATA: Available diagnostic data reviewed. Overall, the patient's general medical condition is stable and improving. PLAN: As ordered. Gareth Anderson MD cc: [id number] TT: 05/28/2016 09:56:11 Confirmation # [id number] Dictation # [id number] jeremy
[2016-05-29 07:27] LABS: BASO # 0.1 K/uL (0.0-0.2); BASO % 1.4 % (0.0-2.0); EOS # 0.2 K/uL (0.0-0.7); EOS % 1.9 % (0.0-4.0); HEMATOCRIT 27.4 % (35.0-51.0); LYMPH # 1.4 K/uL (1.0-4.3); MEAN CELL VOLUME 74.6 fl (80.0-94.0); MEAN CORPUSCULAR HEMOGLOBIN 23.2 pg (27.0-31.0); MEAN CORPUSCULAR HGB CONC 31.1 g/dL (33.0-37.0); MEAN PLATELET VOLUME 7.6 fl (7.2-11.7); MONO # 1.1 K/uL (0.0-0.8); MONO % 12.2 % (0.0-10.0); NEUT # 5.9 K/uL (1.8-7.0); NEUT % 68.5 % (50.0-75.0); NRBC % 0.1 % (0.0-0.0); RED CELL DISTRIBUTION WIDTH 22.1 % (11.5-14.5); WHITE BLOOD COUNT 8.6 K/uL (4.8-10.8)
[2016-05-29 07:28] LABS: ALB/GLOB RATIO 0.8 (1.0-2.1); ALKALINE PHOSPHATASE 105 U/L (38-126); ALT/SGPT 28 U/L (21-72); AST/SGOT 21 U/L (17-59); BILIRUBIN,TOTAL 0.3 mg/dl (0.2-1.3); BLOOD UREA NITROGEN 8 mg/dl (9-20); CALCIUM 7.8 mg/dL (8.4-10.2); CARBON DIOXIDE 23 mmol/L (22-30); CHLORIDE 111 mmol/L (98-107); GFR AFRICAN-AMERICAN > 60; GLUCOSE,RANDOM 74 mg/dL (75-110); POTASSIUM 3.1 MMOL/L (3.6-5.0); SODIUM 143 mmol/l (132-148); TOTAL PROTEIN 4.8 G/DL (6.3-8.2)
[2016-05-29] MEDS: DONEPEZIL HCL PO SCH (08:25)
[2016-05-29] MEDS: MEMANTINE HCL PO SCH (08:25)
[2016-05-29] MEDS: Pantoprazole 40 mg EC Tab PO SCH (08:25)
[2016-05-29] MEDS: Cholestyramine 4 gm/Pkt UD PO SCH (08:26)
[2016-05-29] MEDS: EPOETIN ALFA 10,000 UNIT/ML ML SC SCH (08:27)
--- NOTE | 2016-05-29 11:12 | CP.PCM.PN ---
Subjective - Date & Time of Evaluation Date of Evaluation: 05/29/16 Time of Evaluation: 11:11 - Subjective Subjective: patient is doing very well Has bilateral leg ankle edema Noted improvement of renal function to normal Noted elevated platelet Hgb remains low On Procrit Objective - Vital Signs/Intake and Output Vital Signs (last 24 hours): Temp Pulse Resp BP Pulse Ox 97.0 F L 75 20 143/71 100 05/29/16 08:38 05/29/16 08:38 05/29/16 08:38 05/29/16 08:38 05/29/16 08:38 - Medications Medications: Current Medications Aspirin (Aspirin Chewable) 81 mg PO DAILY [facility] Last Admin: 05/29/16 08:25 Dose: 81 mg Cholestyramine Resin (Questran) 4 gm PO DAILY [facility] Last Admin: 05/29/16 08:26 Dose: 4 gm Home Med (Memantine Hcl/Donepezil Hcl [Namzaric 28 Mg-10 Mg Capsule]) 10 mg PO DAILY [facility] Last Admin: 05/29/16 08:25 Dose: 10 mg Home Med (Rosuvastatin Calcium [Crestor]) 5 mg PO DAILY [facility] Last Admin: 05/29/16 08:25 Dose: 5 mg Iron Sucrose 100 mg/ Sodium (Chloride) 105 mls @ 105 mls/hr IV DAILY [facility] Last Admin: 05/28/16 08:44 Dose: 105 mls/hr Metronidazole (Flagyl 500mg/100ml Ns) 100 mls @ 100 mls/hr IVPB Q8@0500,1400, 2200 [facility] Last Admin: 05/29/16 04:26 Dose: 100 mls/hr Metoprolol Tartrate (Lopressor) 100 mg PO Q12 [facility] Last Admin: 05/29/16 08:25 Dose: 100 mg Pantoprazole Sodium (Protonix Ec Tab) 40 mg PO DAILY [facility] Last Admin: 05/29/16 08:25 Dose: 40 mg Pyridostigmine [place] (Mestinon Tab) 60 mg PO QID [facility] Last Admin: 05/29/16 08:24 Dose: 60 mg Tamsulosin HCl (Flomax) 0.4 mg PO DAILY [facility] Last Admin: 05/29/16 08:25 Dose: 0.4 mg - Labs Labs: 05/29/16 07:03 05/29/16 07:03 - Head Exam Head Exam: NORMAL INSPECTION - Eye Exam Eye Exam: Normal appearance - ENT Exam ENT Exam: Mucous Membranes Moist - Respiratory Exam Respiratory Exam: Clear to Ausculation Bilateral - Cardiovascular Exam Cardiovascular Exam: REGULAR RHYTHM - Neurological Exam Neurological Exam: CN II-XII Intact, Oriented x3 Assessment and Plan (1) Pancolitis Status: Acute (2) Dehydration Status: Acute (3) Acute renal failure Status: Acute (4) Toxic dilatation of colon Status: Acute (5) HTN (hypertension) Status: Acute (6) Leg edema Status: Acute (7) Physical debility Status: Acute (8) Gait instability Status: Acute (9) Myasthenia gravis Status: Acute - Assessment and Plan (Free Text) Plan: Cont meds Cont tx Cot PT Hold Epogen cont venofer
[2016-05-30] MEDS: metroNIDAZOLE 500mg/100ml NS 100 ML IVPB SCH ×3 (05:00→21:24)
[2016-05-30 06:59] LABS: HEMATOCRIT 27.5 % (35.0-51.0); MEAN CELL VOLUME 75.3 fl (80.0-94.0); MEAN CORPUSCULAR HEMOGLOBIN 23.5 pg (27.0-31.0); MEAN CORPUSCULAR HGB CONC 31.2 g/dL (33.0-37.0); RED CELL DISTRIBUTION WIDTH 24.6 % (11.5-14.5); WHITE BLOOD COUNT 7.3 K/uL (4.8-10.8)
[2016-05-30 07:46] LABS: BLOOD UREA NITROGEN 7 mg/dl (9-20); CALCIUM 7.6 mg/dL (8.4-10.2); CARBON DIOXIDE 23 mmol/L (22-30); CHLORIDE 112 mmol/L (98-107); GFR AFRICAN-AMERICAN > 60; GLUCOSE,RANDOM 74 mg/dL (75-110); POTASSIUM 3.1 MMOL/L (3.6-5.0); SODIUM 143 mmol/l (132-148)
[2016-05-30] MEDS: MEMANTINE HCL PO SCH (08:22)
[2016-05-30] MEDS: DONEPEZIL HCL PO SCH (08:22)
[2016-05-30] MEDS: Cholestyramine 4 gm/Pkt UD PO SCH (08:23)
[2016-05-30] MEDS: Pantoprazole 40 mg EC Tab PO SCH (08:23)
--- NOTE | 2016-05-30 09:14 | CP.PCM.PN ---
Subjective - Date & Time of Evaluation Date of Evaluation: 05/30/16 Time of Evaluation: 09:11 - Subjective Subjective: Noted low potassium Still with leg edema Hgb 8.6 Platelet 675 Doing very well with PT Objective - Vital Signs/Intake and Output Vital Signs (last 24 hours): Temp Pulse Resp BP Pulse Ox 97.5 F L 60 20 120/60 100 05/30/16 08:17 05/30/16 08:17 05/30/16 08:17 05/30/16 08:17 05/30/16 08:17 - Medications Medications: Current Medications Aspirin (Aspirin Chewable) 81 mg PO DAILY [facility] Last Admin: 05/30/16 08:20 Dose: 81 mg Cholestyramine Resin (Questran) 4 gm PO DAILY [facility] Last Admin: 05/30/16 08:23 Dose: 4 gm Home Med (Memantine Hcl/Donepezil Hcl [Namzaric 28 Mg-10 Mg Capsule]) 10 mg PO DAILY [facility] Last Admin: 05/30/16 08:22 Dose: 10 mg Home Med (Rosuvastatin Calcium [Crestor]) 5 mg PO DAILY [facility] Last Admin: 05/30/16 08:22 Dose: 5 mg Iron Sucrose 100 mg/ Sodium (Chloride) 105 mls @ 105 mls/hr IV DAILY [facility] Last Admin: 05/29/16 12:20 Dose: 105 mls/hr Metronidazole (Flagyl 500mg/100ml Ns) 100 mls @ 100 mls/hr IVPB Q8@0500,1400, 2200 [facility] Last Admin: 05/30/16 05:00 Dose: 100 mls/hr Metoprolol Tartrate (Lopressor) 100 mg PO Q12 [facility] Last Admin: 05/30/16 08:22 Dose: 100 mg Pantoprazole Sodium (Protonix Ec Tab) 40 mg PO DAILY [facility] Last Admin: 05/30/16 08:23 Dose: 40 mg Pyridostigmine [place] (Mestinon Tab) 60 mg PO QID [facility] Last Admin: 05/30/16 08:23 Dose: 60 mg Tamsulosin HCl (Flomax) 0.4 mg PO DAILY [facility] Last Admin: 05/30/16 08:21 Dose: 0.4 mg - Labs Labs: 05/30/16 06:44 05/30/16 06:44 - Head Exam Head Exam: NORMAL INSPECTION - Eye Exam Eye Exam: Normal appearance - Respiratory Exam Respiratory Exam: Clear to Ausculation Bilateral - Cardiovascular Exam Cardiovascular Exam: REGULAR RHYTHM - GI/Abdominal Exam GI & Abdominal Exam: Normal Bowel Sounds - Extremities Exam Extremities Exam: Pedal Edema - Neurological Exam Neurological Exam: CN II-XII Intact, Oriented x3 Assessment and Plan (1) Pancolitis Status: Acute (2) Dehydration Status: Acute (3) Acute renal failure Status: Acute (4) Toxic dilatation of colon Status: Acute (5) HTN (hypertension) Status: Acute (6) Leg edema Status: Acute (7) Physical debility Status: Acute (8) Gait instability Status: Acute (9) Myasthenia gravis Status: Acute (10) Hypokalemia Status: Acute - Assessment and Plan (Free Text) Plan: Cont meds Cont tx Cont PT potassium 40 meq now then 20 daily recheck labs in am
[2016-05-30] MEDS ORDERED: Potassium Chloride 40 mEq/30 ml LIQ UD PO SCH (09:15)
[2016-05-30] MEDS: Potassium Chloride 20 mEq/15 ml LIQ UD PO SCH (15:42)
[2016-05-31] MEDS: metroNIDAZOLE 500mg/100ml NS 100 ML IVPB SCH (04:55)
[2016-05-31 06:57] LABS: BASO # 0.2 K/uL (0.0-0.2); BASO % 2.2 % (0.0-2.0); EOS # 0.1 K/uL (0.0-0.7); EOS % 1.7 % (0.0-4.0); LYMPH % 11.4 % (20.0-40.0); MEAN CELL VOLUME 75.1 fl (80.0-94.0); MEAN CORPUSCULAR HEMOGLOBIN 23.9 pg (27.0-31.0); MEAN CORPUSCULAR HGB CONC 31.8 g/dL (33.0-37.0); MEAN PLATELET VOLUME 7.6 fl (7.2-11.7); MONO % 11.7 % (0.0-10.0); NEUT # 6.3 K/uL (1.8-7.0); NRBC % 0.1 % (0.0-0.0); RED CELL DISTRIBUTION WIDTH 24.7 % (11.5-14.5); WHITE BLOOD COUNT 8.6 K/uL (4.8-10.8)
[2016-05-31 07:19] LABS: ALB/GLOB RATIO 0.8 (1.0-2.1); ALKALINE PHOSPHATASE 83 U/L (38-126); ALT/SGPT 25 U/L (21-72); AST/SGOT 31 U/L (17-59); BILIRUBIN,TOTAL 0.4 mg/dl (0.2-1.3); BLOOD UREA NITROGEN 6 mg/dl (9-20); CALCIUM 7.8 mg/dL (8.4-10.2); CARBON DIOXIDE 23 mmol/L (22-30); CHLORIDE 112 mmol/L (98-107); GFR AFRICAN-AMERICAN > 60; GLUCOSE,RANDOM 71 mg/dL (75-110); SODIUM 143 mmol/l (132-148); TOTAL PROTEIN 4.8 G/DL (6.3-8.2)
[2016-05-31 07:41] LABS: POTASSIUM 3.8 MMOL/L (3.6-5.0)
[2016-05-31] MEDS: Pantoprazole 40 mg EC Tab PO SCH (08:11)
[2016-05-31] MEDS: MEMANTINE HCL PO SCH (08:11)
[2016-05-31] MEDS: Cholestyramine 4 gm/Pkt UD PO SCH (08:11)
[2016-05-31] MEDS: DONEPEZIL HCL PO SCH (08:11)
[2016-05-31] MEDS: Potassium Chloride 20 mEq/15 ml LIQ UD PO SCH (08:11)
[2016-05-31 08:18] VITALS: TEMP 98.2
--- NOTE | 2016-05-31 10:15 | CP.PCM.DIS ---
Provider - Provider Date of Admission: 05/23/16 18:33 Attending physician: Miguel Rodríguez MD Primary care physician: Miguel Rodríguez MD Time Spent in preparation of Discharge (in minutes): 30 Diagnosis - Discharge Diagnosis (1) Pancolitis Status: Acute (2) Dehydration Status: Acute (3) Acute renal failure Status: Acute (4) Toxic dilatation of colon Status: Acute (5) HTN (hypertension) Status: Acute (6) Leg edema Status: Acute (7) Physical debility Status: Acute (8) Gait instability Status: Acute (9) Myasthenia gravis Status: Acute (10) Hypokalemia Status: Acute Hospital Course - Lab Results Lab Results: Most Recent Lab Values WBC 8.6 K/uL (4.8-10.8) 05/31/16 06:39 RBC 3.86 Mil/uL (4.40-5.90) L 05/31/16 06:39 Hgb 9.2 g/dL (12.0-18.0) L 05/31/16 06:39 Hct 29.0 % (35.0-51.0) L 05/31/16 06:39 MCV 75.1 fl (80.0-94.0) L 05/31/16 06:39 MCH 23.9 pg (27.0-31.0) L 05/31/16 06:39 MCHC 31.8 g/dL (33.0-37.0) L 05/31/16 06:39 RDW 24.7 % (11.5-14.5) H 05/31/16 06:39 Plt Count 686 K/uL (130-400) H 05/31/16 06:39 MPV 7.6 fl (7.2-11.7) 05/31/16 06:39 Neut % (Auto) 73.0 % (50.0-75.0) 05/31/16 06:39 Lymph % (Auto) 11.4 % (20.0-40.0) L 05/31/16 06:39 [place] % (Auto) 11.7 % (0.0-10.0) H 05/31/16 06:39 Eos % (Auto) 1.7 % (0.0-4.0) 05/31/16 06:39 Baso % (Auto) 2.2 % (0.0-2.0) H 05/31/16 06:39 Neut # 6.3 K/uL (1.8-7.0) 05/31/16 06:39 Lymph # 1.0 K/uL (1.0-4.3) 05/31/16 06:39 [place] # 1.0 K/uL (0.0-0.8) H 05/31/16 06:39 Eos # 0.1 K/uL (0.0-0.7) 05/31/16 06:39 Baso # 0.2 K/uL (0.0-0.2) 05/31/16 06:39 Sodium 143 mmol/l (132-148) 05/31/16 06:39 Potassium 3.8 MMOL/L (3.6-5.0) 05/31/16 06:39 Chloride 112 mmol/L (98-107) H 05/31/16 06:39 Carbon Dioxide 23 mmol/L (22-30) 05/31/16 06:39 Anion Gap 12 (10-20) 05/31/16 06:39 BUN 6 mg/dl (9-20) L 05/31/16 06:39 Creatinine 1.1 mg/dL (0.8-1.5) 05/31/16 06:39 Est GFR ( Amer) > 60 05/31/16 06:39 Est GFR (Non-Af Amer) > 60 05/31/16 06:39 Random Glucose 71 mg/dL (75-110) L 05/31/16 06:39 Calcium 7.8 mg/dL (8.4-10.2) L 05/31/16 06:39 Total Bilirubin 0.4 mg/dl (0.2-1.3) 05/31/16 06:39 AST 31 U/L (17-59) 05/31/16 06:39 ALT 25 U/L (21-72) 05/31/16 06:39 Alkaline Phosphatase 83 U/L (38-126) 05/31/16 06:39 Total Protein 4.8 G/DL (6.3-8.2) L 05/31/16 06:39 Albumin 2.2 g/dL (3.5-5.0) L 05/31/16 06:39 Globulin 2.6 gm/dL (2.2-3.9) 05/31/16 06:39 Albumin/Globulin Ratio 0.8 (1.0-2.1) L 05/31/16 06:39 TSH 3rd Generation 6.69 mIU/ML (0.46-4.68) H 05/24/16 11:07 - Hospital Course Hospital Course: This is a 75 y/o male admitted for general debility after he was hospitalized for acute renal failure from pancolitis and dehydration. He was started on hemodialysis while in the medical floor and responded very well. He was started on physical therapy and cbc and cmp were monitored. He was kept on Venofer as Hgb was persistently low. He was maintained on Epocrit but note platelet to be elevated hence was discontinued . He responded well to treatment and was discharged in stable condition. Discharge Exam - Head Exam Head Exam: NORMAL INSPECTION - Eye Exam Eye Exam: Normal appearance - Respiratory Exam Respiratory Exam: NORMAL BREATHING PATTERN - Cardiovascular Exam Cardiovascular Exam: REGULAR RHYTHM - GI/Abdominal Exam GI & Abdominal Exam: Normal Bowel Sounds - Neurological Exam Neurological exam: CN II-XII Intact, Oriented x3 - Psychiatric Exam Psychiatric exam: Normal Mood Discharge Plan - Follow Up Plan Condition: GOOD Disposition: HOME/ ROUTINE Additional Instructions: discharge on ferrous bid, colace and flomax follow up in office in 1 week Referrals: Miguel Rodríguez MD [Primary Care Provider] -
[2016-05-31 15:46] VITALS: BP 163/73; PULSE 72; O2SAT 98
== END 2016-05-31 16:30 | disposition home or self-care (01) | DRG 945 ==
LOC: H.TCU 18:33
PROVIDERS: ADMIT Family Medicine; ATTEND Family Medicine
PROC: F08Z4ZZ Home Management Treatment (ICD-10-PCS; principal; 2016-05-23)
PROC: F07Z9ZZ Gait Training/Functional Ambulation Treatment (ICD-10-PCS; 2016-05-23)
PROC: F07L6ZZ Therapeutic Exercise Treatment of Musculoskeletal System - Lower Back / Lower Extremity (ICD-10-PCS; 2016-05-23)
PROC: F07L0ZZ Range of Motion and Joint Mobility Treatment of Musculoskeletal System - Lower Back / Lower Extremity (ICD-10-PCS; 2016-05-23)
DX: R53.81 Other malaise (principal); N17.9 Acute kidney failure, unspecified; K59.31 Toxic megacolon; G70.00 Myasthenia gravis without (acute) exacerbation; F03.90 Unspecified dementia, unspecified severity, without behavioral disturbance, psychotic disturbance, mood disturbance, and anxiety; R26.89 Other abnormalities of gait and mobility; E78.5 Hyperlipidemia, unspecified; E87.6 Hypokalemia; I10 Essential (primary) hypertension; N40.1 Benign prostatic hyperplasia with lower urinary tract symptoms; D64.9 Anemia, unspecified